=== PATIENT | female | born 2005 | race Two or more races ===

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

== ENCOUNTER 2025-01-21 18:10 | Inpatient (IN) | payer OTHER, SELFPAY ==
--- NOTE | ~2025-01-21 | CT_ITS ---
CLINICAL HISTORY: AMS seizure CT head without contrast Comparison: None provided Findings: No intra-axial mass, midline shift, hydrocephalus, or acute hemorrhage. No significant atrophy-like change or white matter disease. There is no sinus or mastoid fluid. The orbits are unremarkable. No skull fracture. IMPRESSION: 1. No acute intracranial findings. This document has been electronically signed by: Damon Sullivan MD on 01/21/2025 21:01:01
--- NOTE | ~2025-01-21 | MR_ITS ---
CLINICAL HISTORY: ?seizure --- Additional Notes or Special Instructions: Existing IV causing pt pain with use. Pt unable to tolerate placement of new IV for contrast Inj. NO CONTRAST ADMINISTERED. MR Brain without gadolinium Comparison: None provided Findings: No restricted diffusion. No intra-axial mass or hemorrhage. No midline shift. No hydrocephalus. No abnormal brain signal. Mesial temporal lobes are unremarkable. Vascular flow voids are intact. Orbital contents are unremarkable. The sinuses and mastoid air cells are clear. No focal bone lesion. IMPRESSION: Unremarkable brain MRI. This document has been electronically signed by: Boyd Diop MD on 01/22/2025 22:38:32
--- NOTE | ~2025-01-21 | XR_ITS ---
EXAMINATION: XR SKULL CLINICAL INFORMATION: PRE MRI ORBIT/SKULL XR R/O FOREIGN BODY ND UNABLE TO ANSWER SCREENING QUEST COMPARISON: None available. TECHNIQUE: 2 views of the skull were obtained. FINDINGS: There is a metallic circular nose ring. XR/XR skull <4V IMPRESSION: Metallic nose ring. Removal is advised prior to MRI. Electronically signed by: Hieu Guzman MD 01/22/2025 01:44 PM EDT
--- NOTE | ~2025-01-21 | XR_ITS ---
EXAMINATION: XR CHEST CLINICAL INFORMATION: PRE MRI CHEST XR R/O FOREIGN BODY IA UNABLE TO ANSWER SCREENING QUESTIONS COMPARISON: September 26, 2023 TECHNIQUE: Frontal view of the chest was obtained. FINDINGS: No significant abnormality is noted involving the heart, lungs, mediastinum, bony thorax or soft tissues. XR/XR chest 1V IMPRESSION: No acute disease No metallic foreign body. Electronically signed by: Hieu Guzman MD 01/22/2025 01:45 PM EDT
--- NOTE | ~2025-01-21 | XR_ITS ---
EXAMINATION: XR ABDOMEN KUB CLINICAL INDICATION: PRE MRI ABD XR R/O FOREIGN BODY PT UNABLE TO ANSWER SCREENING QUESTIONS COMPARISON: None available. TECHNIQUE: AP view of the abdomen. FINDINGS: The bowel gas pattern is normal with no evidence of ileus or obstruction. No unusual soft tissue calcifications are noted. The bones are unremarkable. Metallic wire, probably temperature probe, projects over the midline in the lower pelvis. XR/XR abdomen 1V IMPRESSION: Metallic wire in the central lower pelvis is probably a temperature probe. MRI safety should be checked. Electronically signed by: Hieu Guzman MD 01/22/2025 01:47 PM EDT
[2025-01-21 18:23] VITALS: BP 125/61; PULSE 103; RESP 23; TEMP 36.4; O2SAT 125
--- NOTE | 2025-01-21 18:28 | ECG_ITS ---
Test Reason : unresponsive Blood Pressure : */* mmHG Vent. Rate : 104 BPM Atrial Rate : 104 BPM P-R Int : 164 ms QRS Dur : 110 ms QT Int : 406 ms P-R-T Axes : 32 59 25 degrees QTcB Int : 533 ms Sinus tachycardia Incomplete right bundle branch block Prolonged QT Abnormal ECG No previous ECGs available Referred By: Julius Chaidez Electronically Signed By:
--- NOTE | 2025-01-21 18:30 | ED_ITS ---
HPI - Altered Mental Status General Chief Complaint: Overdose Stated Complaint: found in road drinking from a puddle Time Seen by Provider: 01/21/25 18:15 Source: EMS Mode of arrival: EMS Limitations: altered mental status History of Present Illness ED Provider: HPI narrative: Patient history of substance abuse?? Was found on the street drinking water from a puddle working on the car disorder no signs of head injury patient does have history of overdose in the past according to the nurse who knows her details not available Related Data Home Medications ?Medication ?Instructions ?Recorded ?Confirmed polyethylene glycol 3350 17 17 g PO DAILY PRN Constipa tion 09/26/23 10/25/23 gram/dose oral powder (Miralax) olanzapine 10 mg tablet 10 mg PO BEDTIME 10/25/23 olanzapine 5 mg tablet 5 mg PO BEDTIME 10/25/2309/14 Allergies Allergy/AdvReac Type Severity Reaction Status Date / Time No Known Allergies Allergy Unverified 01/21/25 19:01 Review of Systems 2 Review of Systems: Yes Unobtainable due to mental status PMFSH Past Medical History Source: unable to obtain Medical History PTSD (post-traumatic stress disorder) Borderline personality disorder Bulimia OCD (obsessive compulsive disorder) Drug overdose Social History Social History Household Members: Other Housing: Other Housing Other:: [employer] ([facility]). Do you presently have visiting nurse or other home services: No Unable to assess alcohol history related to: Refusing to respond Alcohol intake: never Patient Tobacco Use Status: Never used Tobacco e-Cigarette/Vaping Use: Never Used Second Hand Smoke Exposure: No Substance Use Type: Marijuana Advance Directives: No Advance Directives Information Provided: No service: No Sexual orientation: Did not discuss Physical Exam ED Vital Signs: Vital Signs - 24 hr 01/21/25 18:23 01/21/25 18:54 01/21/25 19:56 Temperature 97.5 F 97.5 F 97.2 F Pulse Rate 103 H 104 H 102 H Respiratory Rate 23 H 12 28 H Blood Pressure 125/61 130/90 H 117/65 Pulse Oximetry 125 H 98 100 Oxygen Delivery Method Non-Rebreather Mask Room Air Room Air Oxygen Flow Rate 01/21/25 21:49 01/22/25 00:47 01/22/25 00:50 Temperature 97.3 F 98.8 F Pulse Rate 101 H 106 H Respiratory Rate 20 22 H Blood Pressure 107/62 123/70 Pulse Oximetry 100 99 Oxygen Delivery Method Room Air Nasal Cannula Oxygen Flow Rate 2 01/22/25 02:12 Temperature 98.2 F Pulse Rate 102 H Respiratory Rate 17 Blood Pressure 111/63 Pulse Oximetry 100 Oxygen Delivery Method Room Air Oxygen Flow Rate BMI result Body Mass Index 29.0 Appearance: Obtunded No acute distress. Eyes: PERRLA, No Nystagmus ENT: Pharynx normal. Oral Mucosa moist Neck: Normal inspection. Neck supple. CVS: Normal heart rate and rhythm. Pulses normal. Respiratory: No respiratory distress. Equal air entry bilateral, no wheezing/rales/rhonchi Abdomen: Soft and nontender. Bowel sounds are present, no mass palpable, no CVA tenderness Skin: Skin warm and dry. Normal skin color. Normal skin turgor. Extremities: No lower extremity edema. No calf tenderness Neuro: Obtunded No motor deficit. No sensory deficit.No cerebellar signs , cranial nerves II-XII intact Medications Administered Discontinued Medications Generic Name Dose Route Start Last Admin Trade Name Freq PRN Reason Stop Dose Admin Dextrose 25 gm 01/22/25 02:06 01/22/25 02:10 Dextrose 50 % 25 Gm/50 Ml Syringe IVPUSH 01/22/25 02:07 25 gm ONCE ONE Administration Diazepam 5 mg 01/22/25 00:46 01/22/25 00:53 Diazepam 10 Mg/2 Ml Cartridge IVPUSH 01/22/25 00:47 5 mg STAT STA Administration Sodium Chloride 1,000 mls @ 999 mls/hr 01/21/25 18:25 01/21/25 20:58 Ns IV 01/21/25 19:25 Infused .Q1H1M ONE Infusion Sodium Chloride 1,000 mls @ 999 mls/hr 01/22/25 00:57 01/22/25 02:18 Ns IV 01/22/25 01:57 Infused .Q1H1M ONE Infusion Midazolam HCl 2 mg 01/21/25 18:19 01/21/25 18:28 Midazolam Hcl 2 Mg/2 Ml Vial IM 01/21/25 18:20 2 mg ONCE ONE Administration Medical Decision Making Medical Decision Making [facility] Narrative: 18;15 patient had a tonic-clonic seizure lasted for about 4 minutes Versed 2 mg IM was given 00:45 Patient has another tonic-clonic seizure lasted for 4 minutes was given Valium IV Patient's old chart reviewed patient's trans male with history of PTSD OCD borderline personality disorder bulimia chronic SI with frequent psychiatric admissions phos found on the street with altered mental status and abnormal behavior so far workup is negative for known medication overdose patient's vitals are stable head CT is also negative will keep patient for observation patient's has lactic acidosis likely from the muscle breakdown not from infection Will admit patient for seizure disorder and confusion RN spoke with the patient's mother came to know that patient has overdose on Benadryl in the past and today the but Benadryl bottle was empty and the according to mother patient did get seizure when she had overdose on Benadryl at this time patient was not very agitated when she came was slightly delirious but mostly keeping the eyes closed clinically does not fit in anticholinergic overdose will call poison control Per poison control patient likely overdose on tricyclics does not match the criteria for Benadryl overdose advised to check magnesium repeat EKG for QTC interval and check lactic acid level again Repeat EKG showed normal sinus rhythm heart rate 98 beats per minute QTC [address]-T changes will give 2 g of Mag sulfate Differential Diagnosis Differential Diagnoses: The differential diagnosis associated with the presentation includes Overdose/withdrawal/psychiatric flare-up/tricyclic overdose Admission/Observation Consideration of admission/observation: Escalation of care including admission/observation considered Lab Data [facility] Lab Attestation statement: I reviewed the patient's lab results. 01/21/25 13:25 01/21/25 13:25 Labs: Lab Results 01/21/25 01/21/25 01/21/25 Range/Units 13:25 13:25 13:25 WBC 7.8 (4.8-10.8) X10*3/uL RBC 4.50 (4.20-5.50) X10*6/uL Hgb 13.5 (12.0-16.0) g/dl Hct 39.7 (37.0-47.0) % MCV 88.2 (80.0-98.0) fL MCH 30.0 (27.0-33.0) pg MCHC 34.0 (31.0-35.0) g/dl RDW 12.6 (11.0-16.0) % Plt Count 229 (160-400) X10*3/uL MPV 10.9 (9.4-12.3) fL Immature Gran % (Auto) 0.3 (0.0-0.4) % Neut % (Auto) 67.1 (45-73) % Lymph % (Auto) 26.2 (20-40) % [place] % (Auto) 5.7 (2-11) % Eos % (Auto) 0.1 (0-4) % Baso % (Auto) 0.6 (0-2) % Lymph # (Auto) 2.0 (1.2-4.9) X10*3/uL [place] # (Auto) 0.4 (0.1-1.2) X10*3/uL Eos # (Auto) 0.0 (0.0-0.4) X10*3/uL Baso # (Auto) 0.1 (0.0-0.2) X10*3/uL Abs Immat Gran (auto) 0.02 (0.00-0.03) X10*3/uL Absolute Neuts (auto) 5.2 (2.0-8.3) x10*3/uL Absolute Nucleated RBC 0.000 (0.0-0.012) X10*3/uL Nucleated RBC % (auto) 0.0 (0.0-0.2) /100WBC Hold Purple Top VBG pH (7.32-7.43) VBG pCO2 mmHg VBG pO2 mmHg VBG HCO3 (22-26) mmol/L VBG O2 Saturation % VBG Base Excess mmol/L Sodium Cancelled 139 Potassium Cancelled 4.7 Chloride Cancelled Carbon Dioxide Anion Gap BUN Creatinine Estim Creat Clear Calc Estimated GFR POC Glucose (60-115) mg/dL Random Glucose Lactic Acid (0.5-2.0) mmol/L Lactic Acid F/U @ 2Hr (0.5-2.0) mmol/L Lactic Acid F/U @ 4Hr (0.5-2.0) mmol/L Calcium Total Bilirubin AST ALT Alkaline Phosphatase Total Protein Albumin Beta HCG, Quant mIU/mL Urine Color Urine Appearance Urine pH (5.0-9.0) Ur Specific [place] Level (1.005-1.025) Urine Protein (Neg-Trace) mg/dL Urine Glucose (UA) (Negative) mg/dL Urine Ketones (Negative) mg/dL Urine Blood (Negative) Urine Nitrite (Negative) Ur Leukocyte Esterase (Negative) Urine RBC (0-2) /HPF Urine WBC (0-5) /HPF Ur Squamous Epith Cells (0-2) /HPF Urine Bacteria (None Seen) Hyaline Casts (0-2) /LPF Salicylates (15-30) mg/dL Urine Opiates Screen (Not Detect) Ur Buprenorphine Scrn (Not Detect) ng/mL Ur Oxycodone Screen (Not Detect) ng/mL Urine Methadone Screen (Not Detect) ng/mL Urine Fentanyl Screen (Not Detect) Acetaminophen (<30) mcg/mL Ur Barbiturates Screen (Not Detect) Ur Phencyclidine Scrn (Not Detect) Ur Amphetamines Screen (Not Detect) U Benzodiazepines Scrn (Not Detect) Urine Cocaine Screen (Not Detect) U Marijuana (THC) Screen (Not Detect) Ethyl Alcohol mg/dL 01/21/25 01/21/25 01/21/25 Range/Units 13:25 13:25 13:25 WBC (4.8-10.8) X10*3/uL RBC (4.20-5.50) X10*6/uL Hgb (12.0-16.0) g/dl Hct (37.0-47.0) % MCV (80.0-98.0) fL MCH (27.0-33.0) pg MCHC (31.0-35.0) g/dl RDW (11.0-16.0) % Plt Count (160-400) X10*3/uL MPV (9.4-12.3) fL Immature Gran % (Auto) (0.0-0.4) % Neut % (Auto) (45-73) % Lymph % (Auto) (20-40) % [place] % (Auto) (2-11) % Eos % (Auto) (0-4) % Baso % (Auto) (0-2) % Lymph # (Auto) (1.2-4.9) X10*3/uL [place] # (Auto) (0.1-1.2) X10*3/uL Eos # (Auto) (0.0-0.4) X10*3/uL Baso # (Auto) (0.0-0.2) X10*3/uL Abs Immat Gran (auto) (0.00-0.03) X10*3/uL Absolute Neuts (auto) (2.0-8.3) x10*3/uL Absolute Nucleated RBC (0.0-0.012) X10*3/uL Nucleated RBC % (auto) (0.0-0.2) /100WBC Hold Purple Top VBG pH (7.32-7.43) VBG pCO2 mmHg VBG pO2 mmHg VBG HCO3 (22-26) mmol/L VBG O2 Saturation % VBG Base Excess mmol/L Sodium Potassium Chloride 107 Carbon Dioxide Cancelled 17 L Anion Gap Cancelled 20 BUN Cancelled Creatinine Estim Creat Clear Calc Estimated GFR POC Glucose (60-115) mg/dL Random Glucose Lactic Acid (0.5-2.0) mmol/L Lactic Acid F/U @ 2Hr (0.5-2.0) mmol/L Lactic Acid F/U @ 4Hr (0.5-2.0) mmol/L Calcium Total Bilirubin AST ALT Alkaline Phosphatase Total Protein Albumin Beta HCG, Quant mIU/mL Urine Color Urine Appearance Urine pH (5.0-9.0) Ur Specific [place] Level (1.005-1.025) Urine Protein (Neg-Trace) mg/dL Urine Glucose (UA) (Negative) mg/dL Urine Ketones (Negative) mg/dL Urine Blood (Negative) Urine Nitrite (Negative) Ur Leukocyte Esterase (Negative) Urine RBC (0-2) /HPF Urine WBC (0-5) /HPF Ur Squamous Epith Cells (0-2) /HPF Urine Bacteria (None Seen) Hyaline Casts (0-2) /LPF Salicylates (15-30) mg/dL Urine Opiates Screen (Not Detect) Ur Buprenorphine Scrn (Not Detect) ng/mL Ur Oxycodone Screen (Not Detect) ng/mL Urine Methadone Screen (Not Detect) ng/mL Urine Fentanyl Screen (Not Detect) Acetaminophen (<30) mcg/mL Ur Barbiturates Screen (Not Detect) Ur Phencyclidine Scrn (Not Detect) Ur Amphetamines Screen (Not Detect) U Benzodiazepines Scrn (Not Detect) Urine Cocaine Screen (Not Detect) U Marijuana (THC) Screen (Not Detect) Ethyl Alcohol mg/dL 01/21/25 01/21/25 01/21/25 Range/Units 13:25 13:25 13:25 WBC (4.8-10.8) X10*3/uL RBC (4.20-5.50) X10*6/uL Hgb (12.0-16.0) g/dl Hct (37.0-47.0) % MCV (80.0-98.0) fL MCH (27.0-33.0) pg MCHC (31.0-35.0) g/dl RDW (11.0-16.0) % Plt Count (160-400) X10*3/uL MPV (9.4-12.3) fL Immature Gran % (Auto) (0.0-0.4) % Neut % (Auto) (45-73) % Lymph % (Auto) (20-40) % [place] % (Auto) (2-11) % Eos % (Auto) (0-4) % Baso % (Auto) (0-2) % Lymph # (Auto) (1.2-4.9) X10*3/uL [place] # (Auto) (0.1-1.2) X10*3/uL Eos # (Auto) (0.0-0.4) X10*3/uL Baso # (Auto) (0.0-0.2) X10*3/uL Abs Immat Gran (auto) (0.00-0.03) X10*3/uL Absolute Neuts (auto) (2.0-8.3) x10*3/uL Absolute Nucleated RBC (0.0-0.012) X10*3/uL Nucleated RBC % (auto) (0.0-0.2) /100WBC Hold Purple Top VBG pH (7.32-7.43) VBG pCO2 mmHg VBG pO2 mmHg VBG HCO3 (22-26) mmol/L VBG O2 Saturation % VBG Base Excess mmol/L Sodium Potassium Chloride Carbon Dioxide Anion Gap BUN 14 Creatinine Cancelled 1.14 Estim Creat Clear Calc Cancelled TNP Estimated GFR Cancelled POC Glucose (60-115) mg/dL Random Glucose Lactic Acid (0.5-2.0) mmol/L Lactic Acid F/U @ 2Hr (0.5-2.0) mmol/L Lactic Acid F/U @ 4Hr (0.5-2.0) mmol/L Calcium Total Bilirubin AST ALT Alkaline Phosphatase Total Protein Albumin Beta HCG, Quant mIU/mL Urine Color Urine Appearance Urine pH (5.0-9.0) Ur Specific [place] Level (1.005-1.025) Urine Protein (Neg-Trace) mg/dL Urine Glucose (UA) (Negative) mg/dL Urine Ketones (Negative) mg/dL Urine Blood (Negative) Urine Nitrite (Negative) Ur Leukocyte Esterase (Negative) Urine RBC (0-2) /HPF Urine WBC (0-5) /HPF Ur Squamous Epith Cells (0-2) /HPF Urine Bacteria (None Seen) Hyaline Casts (0-2) /LPF Salicylates (15-30) mg/dL Urine Opiates Screen (Not Detect) Ur Buprenorphine Scrn (Not Detect) ng/mL Ur Oxycodone Screen (Not Detect) ng/mL Urine Methadone Screen (Not Detect) ng/mL Urine Fentanyl Screen (Not Detect) Acetaminophen (<30) mcg/mL Ur Barbiturates Screen (Not Detect) Ur Phencyclidine Scrn (Not Detect) Ur Amphetamines Screen (Not Detect) U Benzodiazepines Scrn (Not Detect) Urine Cocaine Screen (Not Detect) U Marijuana (THC) Screen (Not Detect) Ethyl Alcohol mg/dL 01/21/25 01/21/25 01/21/25 Range/Units 13:25 13:25 13:25 WBC (4.8-10.8) X10*3/uL RBC (4.20-5.50) X10*6/uL Hgb (12.0-16.0) g/dl Hct (37.0-47.0) % MCV (80.0-98.0) fL MCH (27.0-33.0) pg MCHC (31.0-35.0) g/dl RDW (11.0-16.0) % Plt Count (160-400) X10*3/uL MPV (9.4-12.3) fL Immature Gran % (Auto) (0.0-0.4) % Neut % (Auto) (45-73) % Lymph % (Auto) (20-40) % [place] % (Auto) (2-11) % Eos % (Auto) (0-4) % Baso % (Auto) (0-2) % Lymph # (Auto) (1.2-4.9) X10*3/uL [place] # (Auto) (0.1-1.2) X10*3/uL Eos # (Auto) (0.0-0.4) X10*3/uL Baso # (Auto) (0.0-0.2) X10*3/uL Abs Immat Gran (auto) (0.00-0.03) X10*3/uL Absolute Neuts (auto) (2.0-8.3) x10*3/uL Absolute Nucleated RBC (0.0-0.012) X10*3/uL Nucleated RBC % (auto) (0.0-0.2) /100WBC Hold Purple Top VBG pH (7.32-7.43) VBG pCO2 mmHg VBG pO2 mmHg VBG HCO3 (22-26) mmol/L VBG O2 Saturation % VBG Base Excess mmol/L Sodium Potassium Chloride Carbon Dioxide Anion Gap BUN Creatinine Estim Creat Clear Calc Estimated GFR 58 POC Glucose (60-115) mg/dL Random Glucose Cancelled 70 Lactic Acid (0.5-2.0) mmol/L Lactic Acid F/U @ 2Hr (0.5-2.0) mmol/L Lactic Acid F/U @ 4Hr (0.5-2.0) mmol/L Calcium Cancelled 8.7 Total Bilirubin Cancelled AST ALT Alkaline Phosphatase Total Protein Albumin Beta HCG, Quant mIU/mL Urine Color Urine Appearance Urine pH (5.0-9.0) Ur Specific [place] Level (1.005-1.025) Urine Protein (Neg-Trace) mg/dL Urine Glucose (UA) (Negative) mg/dL Urine Ketones (Negative) mg/dL Urine Blood (Negative) Urine Nitrite (Negative) Ur Leukocyte Esterase (Negative) Urine RBC (0-2) /HPF Urine WBC (0-5) /HPF Ur Squamous Epith Cells (0-2) /HPF Urine Bacteria (None Seen) Hyaline Casts (0-2) /LPF Salicylates (15-30) mg/dL Urine Opiates Screen (Not Detect) Ur Buprenorphine Scrn (Not Detect) ng/mL Ur Oxycodone Screen (Not Detect) ng/mL Urine Methadone Screen (Not Detect) ng/mL Urine Fentanyl Screen (Not Detect) Acetaminophen (<30) mcg/mL Ur Barbiturates Screen (Not Detect) Ur Phencyclidine Scrn (Not Detect) Ur Amphetamines Screen (Not Detect) U Benzodiazepines Scrn (Not Detect) Urine Cocaine Screen (Not Detect) U Marijuana (THC) Screen (Not Detect) Ethyl Alcohol mg/dL 01/21/25 01/21/25 01/21/25 Range/Units 13:25 13:25 13:25 WBC (4.8-10.8) X10*3/uL RBC (4.20-5.50) X10*6/uL Hgb (12.0-16.0) g/dl Hct (37.0-47.0) % MCV (80.0-98.0) fL MCH (27.0-33.0) pg MCHC (31.0-35.0) g/dl RDW (11.0-16.0) % Plt Count (160-400) X10*3/uL MPV (9.4-12.3) fL Immature Gran % (Auto) (0.0-0.4) % Neut % (Auto) (45-73) % Lymph % (Auto) (20-40) % [place] % (Auto) (2-11) % Eos % (Auto) (0-4) % Baso % (Auto) (0-2) % Lymph # (Auto) (1.2-4.9) X10*3/uL [place] # (Auto) (0.1-1.2) X10*3/uL Eos # (Auto) (0.0-0.4) X10*3/uL Baso # (Auto) (0.0-0.2) X10*3/uL Abs Immat Gran (auto) (0.00-0.03) X10*3/uL Absolute Neuts (auto) (2.0-8.3) x10*3/uL Absolute Nucleated RBC (0.0-0.012) X10*3/uL Nucleated RBC % (auto) (0.0-0.2) /100WBC Hold Purple Top VBG pH (7.32-7.43) VBG pCO2 mmHg VBG pO2 mmHg VBG HCO3 (22-26) mmol/L VBG O2 Saturation % VBG Base Excess mmol/L Sodium Potassium Chloride Carbon Dioxide Anion Gap BUN Creatinine Estim Creat Clear Calc Estimated GFR POC Glucose (60-115) mg/dL Random Glucose Lactic Acid (0.5-2.0) mmol/L Lactic Acid F/U @ 2Hr (0.5-2.0) mmol/L Lactic Acid F/U @ 4Hr (0.5-2.0) mmol/L Calcium Total Bilirubin 0.4 AST Cancelled 49 H ALT Cancelled 29 Alkaline Phosphatase Cancelled Total Protein Albumin Beta HCG, Quant mIU/mL Urine Color Urine Appearance Urine pH (5.0-9.0) Ur Specific [place] Level (1.005-1.025) Urine Protein (Neg-Trace) mg/dL Urine Glucose (UA) (Negative) mg/dL Urine Ketones (Negative) mg/dL Urine Blood (Negative) Urine Nitrite (Negative) Ur Leukocyte Esterase (Negative) Urine RBC (0-2) /HPF Urine WBC (0-5) /HPF Ur Squamous Epith Cells (0-2) /HPF Urine Bacteria (None Seen) Hyaline Casts (0-2) /LPF Salicylates (15-30) mg/dL Urine Opiates Screen (Not Detect) Ur Buprenorphine Scrn (Not Detect) ng/mL Ur Oxycodone Screen (Not Detect) ng/mL Urine Methadone Screen (Not Detect) ng/mL Urine Fentanyl Screen (Not Detect) Acetaminophen (<30) mcg/mL Ur Barbiturates Screen (Not Detect) Ur Phencyclidine Scrn (Not Detect) Ur Amphetamines Screen (Not Detect) U Benzodiazepines Scrn (Not Detect) Urine Cocaine Screen (Not Detect) U Marijuana (THC) Screen (Not Detect) Ethyl Alcohol mg/dL 01/21/25 01/21/25 01/21/25 Range/Units 13:25 13:25 13:25 WBC (4.8-10.8) X10*3/uL RBC (4.20-5.50) X10*6/uL Hgb (12.0-16.0) g/dl Hct (37.0-47.0) % MCV (80.0-98.0) fL MCH (27.0-33.0) pg MCHC (31.0-35.0) g/dl RDW (11.0-16.0) % Plt Count (160-400) X10*3/uL MPV (9.4-12.3) fL Immature Gran % (Auto) (0.0-0.4) % Neut % (Auto) (45-73) % Lymph % (Auto) (20-40) % [place] % (Auto) (2-11) % Eos % (Auto) (0-4) % Baso % (Auto) (0-2) % Lymph # (Auto) (1.2-4.9) X10*3/uL [place] # (Auto) (0.1-1.2) X10*3/uL Eos # (Auto) (0.0-0.4) X10*3/uL Baso # (Auto) (0.0-0.2) X10*3/uL Abs Immat Gran (auto) (0.00-0.03) X10*3/uL Absolute Neuts (auto) (2.0-8.3) x10*3/uL Absolute Nucleated RBC (0.0-0.012) X10*3/uL Nucleated RBC % (auto) (0.0-0.2) /100WBC Hold Purple Top VBG pH (7.32-7.43) VBG pCO2 mmHg VBG pO2 mmHg VBG HCO3 (22-26) mmol/L VBG O2 Saturation % VBG Base Excess mmol/L Sodium Potassium Chloride Carbon Dioxide Anion Gap BUN Creatinine Estim Creat Clear Calc Estimated GFR POC Glucose (60-115) mg/dL Random Glucose Lactic Acid (0.5-2.0) mmol/L Lactic Acid F/U @ 2Hr (0.5-2.0) mmol/L Lactic Acid F/U @ 4Hr (0.5-2.0) mmol/L Calcium Total Bilirubin AST ALT Alkaline Phosphatase 69 Total Protein Cancelled 7.9 Albumin Cancelled 4.6 Beta HCG, Quant < 2 mIU/mL Urine Color Urine Appearance Urine pH (5.0-9.0) Ur Specific [place] Level (1.005-1.025) Urine Protein (Neg-Trace) mg/dL Urine Glucose (UA) (Negative) mg/dL Urine Ketones (Negative) mg/dL Urine Blood (Negative) Urine Nitrite (Negative) Ur Leukocyte Esterase (Negative) Urine RBC (0-2) /HPF Urine WBC (0-5) /HPF Ur Squamous Epith Cells (0-2) /HPF Urine Bacteria (None Seen) Hyaline Casts (0-2) /LPF Salicylates < 5.0 L (15-30) mg/dL Urine Opiates Screen (Not Detect) Ur Buprenorphine Scrn (Not Detect) ng/mL Ur Oxycodone Screen (Not Detect) ng/mL Urine Methadone Screen (Not Detect) ng/mL Urine Fentanyl Screen (Not Detect) Acetaminophen < 3 (<30) mcg/mL Ur Barbiturates Screen (Not Detect) Ur Phencyclidine Scrn (Not Detect) Ur Amphetamines Screen (Not Detect) U Benzodiazepines Scrn (Not Detect) Urine Cocaine Screen (Not Detect) U Marijuana (THC) Screen (Not Detect) Ethyl Alcohol < 10 mg/dL 01/21/25 01/21/25 01/21/25 Range/Units 16:25 18:25 18:37 WBC (4.8-10.8) X10*3/uL RBC (4.20-5.50) X10*6/uL Hgb (12.0-16.0) g/dl Hct (37.0-47.0) % MCV (80.0-98.0) fL MCH (27.0-33.0) pg MCHC (31.0-35.0) g/dl RDW (11.0-16.0) % Plt Count (160-400) X10*3/uL MPV (9.4-12.3) fL Immature Gran % (Auto) (0.0-0.4) % Neut % (Auto) (45-73) % Lymph % (Auto) (20-40) % [place] % (Auto) (2-11) % Eos % (Auto) (0-4) % Baso % (Auto) (0-2) % Lymph # (Auto) (1.2-4.9) X10*3/uL [place] # (Auto) (0.1-1.2) X10*3/uL Eos # (Auto) (0.0-0.4) X10*3/uL Baso # (Auto) (0.0-0.2) X10*3/uL Abs Immat Gran (auto) (0.00-0.03) X10*3/uL Absolute Neuts (auto) (2.0-8.3) x10*3/uL Absolute Nucleated RBC (0.0-0.012) X10*3/uL Nucleated RBC % (auto) (0.0-0.2) /100WBC Hold Purple Top SEE NOTE VBG pH 7.29 L (7.32-7.43) VBG pCO2 35 mmHg VBG pO2 73 mmHg VBG HCO3 17 L (22-26) mmol/L VBG O2 Saturation 91.0 % VBG Base Excess -8.2 mmol/L Sodium Potassium Chloride Carbon Dioxide Anion Gap BUN Creatinine Estim Creat Clear Calc Estimated GFR POC Glucose (60-115) mg/dL Random Glucose Lactic Acid 5.2 H* (0.5-2.0) mmol/L Lactic Acid F/U @ 2Hr (0.5-2.0) mmol/L Lactic Acid F/U @ 4Hr (0.5-2.0) mmol/L Calcium Total Bilirubin AST ALT Alkaline Phosphatase Total Protein Albumin Beta HCG, Quant mIU/mL Urine Color Urine Appearance Urine pH (5.0-9.0) Ur Specific [place] Level (1.005-1.025) Urine Protein (Neg-Trace) mg/dL Urine Glucose (UA) (Negative) mg/dL Urine Ketones (Negative) mg/dL Urine Blood (Negative) Urine Nitrite (Negative) Ur Leukocyte Esterase (Negative) Urine RBC (0-2) /HPF Urine WBC (0-5) /HPF Ur Squamous Epith Cells (0-2) /HPF Urine Bacteria (None Seen) Hyaline Casts (0-2) /LPF Salicylates (15-30) mg/dL Urine Opiates Screen (Not Detect) Ur Buprenorphine Scrn (Not Detect) ng/mL Ur Oxycodone Screen (Not Detect) ng/mL Urine Methadone Screen (Not Detect) ng/mL Urine Fentanyl Screen (Not Detect) Acetaminophen (<30) mcg/mL Ur Barbiturates Screen (Not Detect) Ur Phencyclidine Scrn (Not Detect) Ur Amphetamines Screen (Not Detect) U Benzodiazepines Scrn (Not Detect) Urine Cocaine Screen (Not Detect) U Marijuana (THC) Screen (Not Detect) Ethyl Alcohol mg/dL 01/21/25 01/21/25 01/22/25 Range/Units 18:50 21:25 00:44 WBC (4.8-10.8) X10*3/uL RBC (4.20-5.50) X10*6/uL Hgb (12.0-16.0) g/dl Hct (37.0-47.0) % MCV (80.0-98.0) fL MCH (27.0-33.0) pg MCHC (31.0-35.0) g/dl RDW (11.0-16.0) % Plt Count (160-400) X10*3/uL MPV (9.4-12.3) fL Immature Gran % (Auto) (0.0-0.4) % Neut % (Auto) (45-73) % Lymph % (Auto) (20-40) % [place] % (Auto) (2-11) % Eos % (Auto) (0-4) % Baso % (Auto) (0-2) % Lymph # (Auto) (1.2-4.9) X10*3/uL [place] # (Auto) (0.1-1.2) X10*3/uL Eos # (Auto) (0.0-0.4) X10*3/uL Baso # (Auto) (0.0-0.2) X10*3/uL Abs Immat Gran (auto) (0.00-0.03) X10*3/uL Absolute Neuts (auto) (2.0-8.3) x10*3/uL Absolute Nucleated RBC (0.0-0.012) X10*3/uL Nucleated RBC % (auto) (0.0-0.2) /100WBC Hold Purple Top VBG pH (7.32-7.43) VBG pCO2 mmHg VBG pO2 mmHg VBG HCO3 (22-26) mmol/L VBG O2 Saturation % VBG Base Excess mmol/L Sodium Potassium Chloride Carbon Dioxide Anion Gap BUN Creatinine Estim Creat Clear Calc Estimated GFR POC Glucose (60-115) mg/dL Random Glucose Lactic Acid (0.5-2.0) mmol/L Lactic Acid F/U @ 2Hr 2.7 H* (0.5-2.0) mmol/L Lactic Acid F/U @ 4Hr 5.5 H* (0.5-2.0) mmol/L Calcium Total Bilirubin AST ALT Alkaline Phosphatase Total Protein Albumin Beta HCG, Quant mIU/mL Urine Color Yellow Urine Appearance Clear Urine pH 6.0 (5.0-9.0) Ur Specific [place] <= 1.005 (1.005-1.025) Urine Protein Negative (Neg-Trace) mg/dL Urine Glucose (UA) Negative (Negative) mg/dL Urine Ketones Negative (Negative) mg/dL Urine Blood Large (3+) H (Negative) Urine Nitrite Negative (Negative) Ur Leukocyte Esterase Negative (Negative) Urine RBC >20 H (0-2) /HPF Urine WBC 0-5 (0-5) /HPF Ur Squamous Epith Cells 0-2 (0-2) /HPF Urine Bacteria None Seen (None Seen) Hyaline Casts 0-2 (0-2) /LPF Salicylates (15-30) mg/dL Urine Opiates Screen Not Detected (Not Detect) Ur Buprenorphine Scrn Not Detected (Not Detect) ng/mL Ur Oxycodone Screen Not Detected (Not Detect) ng/mL Urine Methadone Screen Not Detected (Not Detect) ng/mL Urine Fentanyl Screen Not Detected (Not Detect) Acetaminophen (<30) mcg/mL Ur Barbiturates Screen Not Detected (Not Detect) Ur Phencyclidine Scrn Not Detected (Not Detect) Ur Amphetamines Screen Not Detected (Not Detect) U Benzodiazepines Scrn Not Detected (Not Detect) Urine Cocaine Screen Not Detected (Not Detect) U Marijuana (THC) Screen Not Detected (Not Detect) Ethyl Alcohol mg/dL 01/22/25 Range/Units 02:04 WBC (4.8-10.8) X10*3/uL RBC (4.20-5.50) X10*6/uL Hgb (12.0-16.0) g/dl Hct (37.0-47.0) % MCV (80.0-98.0) fL MCH (27.0-33.0) pg MCHC (31.0-35.0) g/dl RDW (11.0-16.0) % Plt Count (160-400) X10*3/uL MPV (9.4-12.3) fL Immature Gran % (Auto) (0.0-0.4) % Neut % (Auto) (45-73) % Lymph % (Auto) (20-40) % [place] % (Auto) (2-11) % Eos % (Auto) (0-4) % Baso % (Auto) (0-2) % Lymph # (Auto) (1.2-4.9) X10*3/uL [place] # (Auto) (0.1-1.2) X10*3/uL Eos # (Auto) (0.0-0.4) X10*3/uL Baso # (Auto) (0.0-0.2) X10*3/uL Abs Immat Gran (auto) (0.00-0.03) X10*3/uL Absolute Neuts (auto) (2.0-8.3) x10*3/uL Absolute Nucleated RBC (0.0-0.012) X10*3/uL Nucleated RBC % (auto) (0.0-0.2) /100WBC Hold Purple Top VBG pH (7.32-7.43) VBG pCO2 mmHg VBG pO2 mmHg VBG HCO3 (22-26) mmol/L VBG O2 Saturation % VBG Base Excess mmol/L Sodium Potassium Chloride Carbon Dioxide Anion Gap BUN Creatinine Estim Creat Clear Calc Estimated GFR POC Glucose 48 L* (60-115) mg/dL Random Glucose Lactic Acid (0.5-2.0) mmol/L Lactic Acid F/U @ 2Hr (0.5-2.0) mmol/L Lactic Acid F/U @ 4Hr (0.5-2.0) mmol/L Calcium Total Bilirubin AST ALT Alkaline Phosphatase Total Protein Albumin Beta HCG, Quant mIU/mL Urine Color Urine Appearance Urine pH (5.0-9.0) Ur Specific [place] (1.005-1.025) Urine Protein (Neg-Trace) mg/dL Urine Glucose (UA) (Negative) mg/dL Urine Ketones (Negative) mg/dL Urine Blood (Negative) Urine Nitrite (Negative) Ur Leukocyte Esterase (Negative) Urine RBC (0-2) /HPF Urine WBC (0-5) /HPF Ur Squamous Epith Cells (0-2) /HPF Urine Bacteria (None Seen) Hyaline Casts (0-2) /LPF Salicylates (15-30) mg/dL Urine Opiates Screen (Not Detect) Ur Buprenorphine Scrn (Not Detect) ng/mL Ur Oxycodone Screen (Not Detect) ng/mL Urine Methadone Screen (Not Detect) ng/mL Urine Fentanyl Screen (Not Detect) Acetaminophen (<30) mcg/mL Ur Barbiturates Screen (Not Detect) Ur Phencyclidine Scrn (Not Detect) Ur Amphetamines Screen (Not Detect) U Benzodiazepines Scrn (Not Detect) Urine Cocaine Screen (Not Detect) U Marijuana (THC) Screen (Not Detect) Ethyl Alcohol mg/dL ABG Data Attestation ABG: I personally reviewed and interpreted this ABG as follows: Independent Interpretation I performed an independent interpretation of an: EKG Interpretation: Sinus tachycardia with a heart rate of 104 beats per minute incomplete right bundle block prolonged QT interval [address]-T no acute ischemia Radiology Impression Discussion of test interpretation with radiology: I have reviewed the radiologist's reading. Critical Care Time Critical Care Time Critical Care Time: Yes Total Critical Care Time: 75 Attestation: Time is exclusive of separately billable procedures. Time includes: direct patient care, patient reassessment, coordination of patient care, interpretation of data (laboratory data, pulse oximetry, arterial blood gases and chest xrays), review of patient's medical records, medical consultation and documentation of patient care. Procedures excluded from critical care time: central intravenous line placement and electrocardiography. Discharge Plan Discharge Clinical Impression: Drug overdose, New onset seizure Patient Disposition: Admitted As Inpatient Print Language: Syriac
[2025-01-21 18:36] LABS: MANUAL DIFF FLAG NO
[2025-01-21 18:39] LABS: Hematocrit 39.7 % (37.0-47.0); Hemoglobin 13.5 g/dl (12.0-16.0); Imm Gran Abs Auto 0.02 X10*3/uL (0.00-0.03); Imm Gran Pct Auto 0.3 % (0.0-0.4); Lymphocytes Absolute Auto 2.0 X10*3/uL (1.2-4.9); Mean Corpuscular HGB Conc 34.0 g/dl (31.0-35.0); Mean Corpuscular Hemoglobin 30.0 pg (27.0-33.0); Mean Corpuscular Volume 88.2 fL (80.0-98.0); NRBC Abs Auto 0.000 X10*3/uL (0.0-0.012); NRBC Pct Auto 0.0 /100WBC (0.0-0.2); Platelet Count 229 X10*3/uL (160-400); Red Blood Count 4.50 X10*6/uL (4.20-5.50); White Blood Count 7.8 X10*3/uL (4.8-10.8)
[2025-01-21 18:43] LABS: VBG HCO3 17 mmol/L (22-26); VBG O2 % Saturation 91.0 %
[2025-01-21 18:44] LABS: Venous Blood Gas Refer to POC result
[2025-01-21 18:54] VITALS: BP 130/90; BP 150/98; PULSE 104; PULSE 132; RESP 12; TEMP 36.4; O2SAT 100; O2SAT 98; BMI 29.0
[2025-01-21 18:59] LABS: Acetaminophen LAB < 3 mcg/mL (<30); Alanine Aminotransferase 29 U/L (0-31); Albumin Level 4.6 g/dL (3.5-5.0); Alkaline Phosphatase 69 U/L (39-117); Anion Gap 20 (12-20); Aspartate Amino Transferase 49 U/L (5-31); Blood Urea Nitrogen 14 mg/dL (9-16); Calcium 8.7 mg/dL (8.4-10.2); Carbon Dioxide 17 mmol/L (22-29); Chloride 107 mmol/L (96-108); Estimated Glomerular Filt Rate 58; Potassium 4.7 mmol/L (3.3-5.1); Salicylate < 5.0 mg/dL (15-30); Sodium 139 mmol/L (135-145); Total Protein 7.9 g/dL (6.5-8.0)
[2025-01-21 19:05] LABS: Appearance Urine Clear; Glucose Urine UA Negative (Negative); PH 6.0 (5.0-9.0); Specific Gravity - Urine <= 1.005 (1.005-1.025); UMIC TRIGGER UACC YES
[2025-01-21 19:17] LABS: Cannabinoid Screen Urine Not Detected (Not Detect)
[2025-01-21 19:56] VITALS: BP 117/65; PULSE 102; RESP 28; TEMP 36.2; O2SAT 100
[2025-01-21 20:40] LABS: Reflex Lactate? Lactic Acid Added
[2025-01-21 21:49] VITALS: BP 107/62; PULSE 101; RESP 20; TEMP 36.3; O2SAT 100
[2025-01-21 21:56] LABS: ~Lactic Acid-LAB USE ONLY 2.7 mmol/L (0.5-2.0)
[2025-01-21 23:29] LABS: Reflex Lactate? 2 Y
[2025-01-22] VITALS (11 sets, daily range): BP systolic 110–141; BP diastolic 63–91; PULSE 94–116; RESP 17–22; TEMP 36.4–37.1; O2SAT 96–100; BMI 31.0
[2025-01-22] MEDS: diazePAM 10 MG/2 ML CARTRIDGE 5 MG IVPUSH (00:53)
--- NOTE | 2025-01-22 00:54 | PC.NURSE ---
Second seizure, unknown duration, unattended at time of start. MD Rawls at bedside, medicated as per V.O. Pt continues to be rousable only to painful stimulus. PERRLA, VSS. Sinus tach low 100s on monitor.
[2025-01-22 01:08] LABS: ~Lactic Acid-LAB USE ONLY 5.5 mmol/L (0.5-2.0)
[2025-01-22 02:08] LABS: Glucose, Whole Blood 48 mg/dL (60-115)
--- NOTE | 2025-01-22 02:28 | ECG_ITS ---
Test Reason : OD Blood Pressure : */* mmHG Vent. Rate : 98 BPM Atrial Rate : 98 BPM P-R Int : 174 ms QRS Dur : 108 ms QT Int : 426 ms P-R-T Axes : 27 65 53 degrees QTcB Int : 543 ms Normal sinus rhythm Prolonged QT Abnormal ECG When compared with ECG of 26-Dec-2024 07:09, Non-specific change in ST segment in Anterior leads Referred By: Julius Chaidez Electronically Signed By: COLT MOSELEY MD
[2025-01-22 02:40] LABS: Magnesium 2.0 mg/dL (1.6-2.6)
[2025-01-22 02:48] LABS: Glucose, Whole Blood 121 mg/dL (60-115)
--- NOTE | 2025-01-22 02:57 | PM.IMHP ---
History of Present Illness Date of Service: 01/22/25 Attending physician on admission: Deangelo Cervantes Chief Complaint: found minimally responsive Patient is a 19-year-old trans female to male patient with a past medical history significant for PTSD, OCD, borderline personality disorder, chronic SI attempts with frequent psych admissions, previous intentional Benadryl overdose and bulimia, who presented to the ED after being found trying to drink from a puddle, licking a car. The patient was minimally responsive. History is unable to be obtained by the patient. ED provider was able to speak with the patient's mother who reported that they have a history of a Benadryl overdose and the mother found the Benadryl bottle empty again today. With previous Benadryl overdose he had a seizure. The ED provider spoke to poison control who suggested this did not seem to be consistent with anticholinergic overdose, more likely TCA overdose due to delirium. Recommendations for checking QTC with serial EKGs as well as magnesium and lactic acid. Review of Systems Review of Systems: Yes Unobtainable due to mental status PMFSH Medical History PTSD (post-traumatic stress disorder) Borderline personality disorder Bulimia OCD (obsessive compulsive disorder) Drug overdose Functional capacity: independent ambulation Social History Household Members: Other Housing: Other Housing Other:: [facility] ([facility]). Do you presently have visiting nurse or other home services: No Unable to assess alcohol history related to: Refusing to respond Alcohol intake: never Patient Tobacco Use Status: Never used Tobacco e-Cigarette/Vaping Use: Never Used Second Hand Smoke Exposure: No Substance Use Type: Marijuana Advance Directives: No Advance Directives Information Provided: No service: No Sexual orientation: Did not discuss Meds Allergies Allergy/AdvReac Type Severity Reaction Status Date / Time No Known Allergies Allergy Unverified 01/21/25 19:01 Active Medications: Current Medications Acetaminophen (Acetaminophen 325 Mg Tablet) 975 mg PO Q6H PRN PRN Reason: Pain, Mild 1-3,fever,headache Calcium Carbonate (Calcium Carbonate 750 Mg Tab.Chew) 750 mg PO Q4H PRN PRN Reason: Heartburn Diazepam (Diazepam 10 Mg/2 Ml Cartridge) 5 mg IVPUSH Q2H PRN PRN Reason: Seizures Heparin Sodium (Porcine) (Heparin Sodium,Porcine 5,000 Unit/Ml Vial) 5,000 unit SUBCUT Q8H [facility] Magnesium Sulfate (Magnesium Sulfate/H2o) 2 gm in 50 mls @ 25 mls/hr IV ONCE ONE Stop: 01/22/25 04:32 Dextrose/Lactated Ringer's (D5lr) 1,000 mls @ 100 mls/hr IVCONT .Q10H [facility] Magnesium Hydroxide (Milk Of Magnesia 30 Ml Oral.Susp) 30 ml PO DAILY PRN PRN Reason: Constipation Melatonin (Melatonin 3 Mg Tablet) 6 mg PO BEDTIME PRN PRN Reason: Insomnia Sodium Chloride (0.9 % Sodium Chloride Flush 3 Ml Syringe) 3 ml IVFLUSH QSHIFT [facility] Home Medications ?Medication ?Instructions ?Recorded ?Confirmed ?Last Taken ?Type polyethylene glycol 3350 17 17 g PO DAILY PRN Constipation 09/26/23 10/25/23 Unknown History gram/dose oral powder (Miralax) olanzapine 10 mg tablet 10 mg PO BEDTIME 10/25/23 10/25/23 Unknown History olanzapine 5 mg tablet 5 mg PO BEDTIME 10/25/23 10/25/23 Unknown History Physical Exam Vital Signs and Narrative: Vital Signs: Last Vital Signs Temp 98.2 F 01/22/25 02:12 Pulse 102 H 01/22/25 02:12 Resp 17 01/22/25 02:12 BP 111/63 01/22/25 02:12 Pulse Ox 100 01/22/25 02:12 O2 Del Method Room Air 01/22/25 02:12 O2 Flow Rate 2 01/22/25 00:47 BMI result Body Mass Index 29.0 General: alert to verbal stimuli moving head side to side and will open eyes minimally, not oriented, does not respond or follow commands, no acute distress Resp: CTA bilaterally CVS: S1, S2, RRR GI: +BS, NT, no distention Skin: Warm, dry Neuro: Cranial nerves II-XII grossly intact bilaterally. Motor grossly intact bilaterally Extremities: No LE edema Results Labs 01/21/25 13:25 01/21/25 13:25 Labs: Laboratory Results - last 24 hr 01/21/25 01/21/25 01/21/25 13:25 13:25 13:25 MCV 88.2 MCH 30.0 MCHC 34.0 RDW 12.6 Plt Count 229 MPV 10.9 Immature Gran % (Auto) 0.3 Neut % (Auto) 67.1 Lymph % (Auto) 26.2 [place] % (Auto) 5.7 Eos % (Auto) 0.1 Baso % (Auto) 0.6 Lymph # (Auto) 2.0 [place] # (Auto) 0.4 Eos # (Auto) 0.0 Baso # (Auto) 0.1 Abs Immat Gran (auto) 0.02 Absolute Neuts (auto) 5.2 Absolute Nucleated RBC 0.000 Nucleated RBC % (auto) 0.0 Hold Purple Top VBG pH VBG pCO2 VBG pO2 VBG HCO3 VBG O2 Saturation VBG Base Excess Anion Gap Cancelled 20 Estim Creat Clear Calc Cancelled TNP Estimated GFR Cancelled POC Glucose Random Glucose Lactic Acid Lactic Acid F/U @ 2Hr Lactic Acid F/U @ 4Hr Calcium Magnesium Total Bilirubin AST ALT Alkaline Phosphatase Total Protein Albumin Beta HCG, Quant Urine Color Urine Appearance Urine pH Ur Specific [place] Urine Protein Urine Glucose (UA) Urine Ketones Urine Blood Urine Nitrite Ur Leukocyte Esterase Urine RBC Urine WBC Ur Squamous Epith Cells Urine Bacteria Hyaline Casts Salicylates Urine Opiates Screen Ur Buprenorphine Scrn Ur Oxycodone Screen Urine Methadone Screen Urine Fentanyl Screen Acetaminophen Ur Barbiturates Screen Ur Phencyclidine Scrn Ur Amphetamines Screen U Benzodiazepines Scrn Urine Cocaine Screen U Marijuana (THC) Screen Ethyl Alcohol 01/21/25 01/21/25 01/21/25 13:25 13:25 13:25 MCV MCH MCHC RDW Plt Count MPV Immature Gran % (Auto) Neut % (Auto) Lymph % (Auto) [place] % (Auto) Eos % (Auto) Baso % (Auto) Lymph # (Auto) [place] # (Auto) Eos # (Auto) Baso # (Auto) Abs Immat Gran (auto) Absolute Neuts (auto) Absolute Nucleated RBC Nucleated RBC % (auto) Hold Purple Top VBG pH VBG pCO2 VBG pO2 VBG HCO3 VBG O2 Saturation VBG Base Excess Anion Gap Estim Creat Clear Calc Estimated GFR 58 POC Glucose Random Glucose Cancelled 70 Lactic Acid Lactic Acid F/U @ 2Hr Lactic Acid F/U @ 4Hr Calcium Cancelled 8.7 Magnesium 2.0 Total Bilirubin Cancelled AST ALT Alkaline Phosphatase Total Protein Albumin Beta HCG, Quant Urine Color Urine Appearance Urine pH Ur Specific [place] Urine Protein Urine Glucose (UA) Urine Ketones Urine Blood Urine Nitrite Ur Leukocyte Esterase Urine RBC Urine WBC Ur Squamous Epith Cells Urine Bacteria Hyaline Casts Salicylates Urine Opiates Screen Ur Buprenorphine Scrn Ur Oxycodone Screen Urine Methadone Screen Urine Fentanyl Screen Acetaminophen Ur Barbiturates Screen Ur Phencyclidine Scrn Ur Amphetamines Screen U Benzodiazepines Scrn Urine Cocaine Screen U Marijuana (THC) Screen Ethyl Alcohol 01/21/25 01/21/25 01/21/25 13:25 13:25 13:25 MCV MCH MCHC RDW Plt Count MPV Immature Gran % (Auto) Neut % (Auto) Lymph % (Auto) [place] % (Auto) Eos % (Auto) Baso % (Auto) Lymph # (Auto) [place] # (Auto) Eos # (Auto) Baso # (Auto) Abs Immat Gran (auto) Absolute Neuts (auto) Absolute Nucleated RBC Nucleated RBC % (auto) Hold Purple Top VBG pH VBG pCO2 VBG pO2 VBG HCO3 VBG O2 Saturation VBG Base Excess Anion Gap Estim Creat Clear Calc Estimated GFR POC Glucose Random Glucose Lactic Acid Lactic Acid F/U @ 2Hr Lactic Acid F/U @ 4Hr Calcium Magnesium Total Bilirubin 0.4 AST Cancelled 49 H ALT Cancelled 29 Alkaline Phosphatase Cancelled Total Protein Albumin Beta HCG, Quant Urine Color Urine Appearance Urine pH Ur Specific [place] Urine Protein Urine Glucose (UA) Urine Ketones Urine Blood Urine Nitrite Ur Leukocyte Esterase Urine RBC Urine WBC Ur Squamous Epith Cells Urine Bacteria Hyaline Casts Salicylates Urine Opiates Screen Ur Buprenorphine Scrn Ur Oxycodone Screen Urine Methadone Screen Urine Fentanyl Screen Acetaminophen Ur Barbiturates Screen Ur Phencyclidine Scrn Ur Amphetamines Screen U Benzodiazepines Scrn Urine Cocaine Screen U Marijuana (THC) Screen Ethyl Alcohol 01/21/25 01/21/25 01/21/25 13:25 13:25 13:25 MCV MCH MCHC RDW Plt Count MPV Immature Gran % (Auto) Neut % (Auto) Lymph % (Auto) [place] % (Auto) Eos % (Auto) Baso % (Auto) Lymph # (Auto) [place] # (Auto) Eos # (Auto) Baso # (Auto) Abs Immat Gran (auto) Absolute Neuts (auto) Absolute Nucleated RBC Nucleated RBC % (auto) Hold Purple Top VBG pH VBG pCO2 VBG pO2 VBG HCO3 VBG O2 Saturation VBG Base Excess Anion Gap Estim Creat Clear Calc Estimated GFR POC Glucose Random Glucose Lactic Acid Lactic Acid F/U @ 2Hr Lactic Acid F/U @ 4Hr Calcium Magnesium Total Bilirubin AST ALT Alkaline Phosphatase 69 Total Protein Cancelled 7.9 Albumin Cancelled 4.6 Beta HCG, Quant < 2 Urine Color Urine Appearance Urine pH Ur Specific [place] Urine Protein Urine Glucose (UA) Urine Ketones Urine Blood Urine Nitrite Ur Leukocyte Esterase Urine RBC Urine WBC Ur Squamous Epith Cells Urine Bacteria Hyaline Casts Salicylates < 5.0 L Urine Opiates Screen Ur Buprenorphine Scrn Ur Oxycodone Screen Urine Methadone Screen Urine Fentanyl Screen Acetaminophen < 3 Ur Barbiturates Screen Ur Phencyclidine Scrn Ur Amphetamines Screen U Benzodiazepines Scrn Urine Cocaine Screen U Marijuana (THC) Screen Ethyl Alcohol < 10 01/21/25 01/21/25 01/21/25 16:25 18:25 18:37 MCV MCH MCHC RDW Plt Count MPV Immature Gran % (Auto) Neut % (Auto) Lymph % (Auto) [place] % (Auto) Eos % (Auto) Baso % (Auto) Lymph # (Auto) [place] # (Auto) Eos # (Auto) Baso # (Auto) Abs Immat Gran (auto) Absolute Neuts (auto) Absolute Nucleated RBC Nucleated RBC % (auto) Hold Purple Top SEE NOTE VBG pH 7.29 L VBG pCO2 35 VBG pO2 73 VBG HCO3 17 L VBG O2 Saturation 91.0 VBG Base Excess -8.2 Anion Gap Estim Creat Clear Calc Estimated GFR POC Glucose Random Glucose Lactic Acid 5.2 H* Lactic Acid F/U @ 2Hr Lactic Acid F/U @ 4Hr Calcium Magnesium Total Bilirubin AST ALT Alkaline Phosphatase Total Protein Albumin Beta HCG, Quant Urine Color Urine Appearance Urine pH Ur Specific [place] Urine Protein Urine Glucose (UA) Urine Ketones Urine Blood Urine Nitrite Ur Leukocyte Esterase Urine RBC Urine WBC Ur Squamous Epith Cells Urine Bacteria Hyaline Casts Salicylates Urine Opiates Screen Ur Buprenorphine Scrn Ur Oxycodone Screen Urine Methadone Screen Urine Fentanyl Screen Acetaminophen Ur Barbiturates Screen Ur Phencyclidine Scrn Ur Amphetamines Screen U Benzodiazepines Scrn Urine Cocaine Screen U Marijuana (THC) Screen Ethyl Alcohol 01/21/25 01/21/25 01/22/25 18:50 21:25 00:44 MCV MCH MCHC RDW Plt Count MPV Immature Gran % (Auto) Neut % (Auto) Lymph % (Auto) [place] % (Auto) Eos % (Auto) Baso % (Auto) Lymph # (Auto) [place] # (Auto) Eos # (Auto) Baso # (Auto) Abs Immat Gran (auto) Absolute Neuts (auto) Absolute Nucleated RBC Nucleated RBC % (auto) Hold Purple Top VBG pH VBG pCO2 VBG pO2 VBG HCO3 VBG O2 Saturation VBG Base Excess Anion Gap Estim Creat Clear Calc Estimated GFR POC Glucose Random Glucose Lactic Acid Lactic Acid F/U @ 2Hr 2.7 H* Lactic Acid F/U @ 4Hr 5.5 H* Calcium Magnesium Total Bilirubin AST ALT Alkaline Phosphatase Total Protein Albumin Beta HCG, Quant Urine Color Yellow Urine Appearance Clear Urine pH 6.0 Ur Specific [place] <= 1.005 Urine Protein Negative Urine Glucose (UA) Negative Urine Ketones Negative Urine Blood Large (3+) H Urine Nitrite Negative Ur Leukocyte Esterase Negative Urine RBC >20 H Urine WBC 0-5 Ur Squamous Epith Cells 0-2 Urine Bacteria None Seen Hyaline Casts 0-2 Salicylates Urine Opiates Screen Not Detected Ur Buprenorphine Scrn Not Detected Ur Oxycodone Screen Not Detected Urine Methadone Screen Not Detected Urine Fentanyl Screen Not Detected Acetaminophen Ur Barbiturates Screen Not Detected Ur Phencyclidine Scrn Not Detected Ur Amphetamines Screen Not Detected U Benzodiazepines Scrn Not Detected Urine Cocaine Screen Not Detected U Marijuana (THC) Screen Not Detected Ethyl Alcohol 01/22/25 01/22/25 02:04 02:32 MCV MCH MCHC RDW Plt Count MPV Immature Gran % (Auto) Neut % (Auto) Lymph % (Auto) [place] % (Auto) Eos % (Auto) Baso % (Auto) Lymph # (Auto) [place] # (Auto) Eos # (Auto) Baso # (Auto) Abs Immat Gran (auto) Absolute Neuts (auto) Absolute Nucleated RBC Nucleated RBC % (auto) Hold Purple Top VBG pH VBG pCO2 VBG pO2 VBG HCO3 VBG O2 Saturation VBG Base Excess Anion Gap Estim Creat Clear Calc Estimated GFR POC Glucose 48 L* 121 H Random Glucose Lactic Acid Lactic Acid F/U @ 2Hr Lactic Acid F/U @ 4Hr Calcium Magnesium Total Bilirubin AST ALT Alkaline Phosphatase Total Protein Albumin Beta HCG, Quant Urine Color Urine Appearance Urine pH Ur Specific [place] Urine Protein Urine Glucose (UA) Urine Ketones Urine Blood Urine Nitrite Ur Leukocyte Esterase Urine RBC Urine WBC Ur Squamous Epith Cells Urine Bacteria Hyaline Casts Salicylates Urine Opiates Screen Ur Buprenorphine Scrn Ur Oxycodone Screen Urine Methadone Screen Urine Fentanyl Screen Acetaminophen Ur Barbiturates Screen Ur Phencyclidine Scrn Ur Amphetamines Screen U Benzodiazepines Scrn Urine Cocaine Screen U Marijuana (THC) Screen Ethyl Alcohol Assessment and Plan (1) Acute encephalopathy: Status: Acute (2) Overdose: Status: Acute (3) Acute metabolic acidosis: Status: Acute (4) Acute lactic acidosis: Status: Acute (5) DENIS (acute kidney injury): Status: Acute Plan Patient is a 19-year-old trans female to male patient with a past medical history significant for PTSD, OCD, borderline personality disorder, chronic SI attempts with frequent psych admissions, previous intentional Benadryl overdose and bulimia, who presented to the ED after being found trying to drink from a puddle, licking a car. Acute toxic encephalopathy secondary to TCA overdose - UTox negative - no leukocytosis, tachycardic and tachypneic likely secondary to TCA overdose - lactic acid 5.2, 2.7 then 5.7 - question of possible seizure - head CT negative - UA negative - EKG with sinus tachycardia, QTC prolonged at 543 - MRI head/brain with and without contrast - neuro consult - serial EKGs q.2h, monitor QTC - magnesium 2.0, given additional 2 g in ED - monitor on tele - NPO until better mentation Acute lactic acidosis - question of possible seizure, may be related to DENIS. No infectious source identified - given 2 L IV fluids in ED - blood pressure normal - D5 LR 100 mL/HR DENIS - creatinine 1.14 - 2 L IV fluids plus maintenance fluids as above - avoid nephrotoxins - monitor BMP Mental health history - consider care team eval once medically cleared Med rec pending Full code VTE prophylaxis: Heparin Patient with acute toxic encephalopathy secondary to likely TCA overdose complicated by DENIS, requiring admission for at least 2 midnight stay for further evaluation, monitoring. Quality Stroke Does the patient have a stroke diagnosis?: No VTE Prior VTE?: No VTE Risk Level:: Medical - moderate - high VTE Device Contraindication: Treatment Not Indicated VTE Drug Contraindication: N/A - Med Ordered
[2025-01-22] MEDS: Magnesium Sulfate/H2O 2 GM/50 ML PIGGYBACK IV (02:59)
--- NOTE | 2025-01-22 03:05 | PC.NURSE ---
Spoke with mother Diamond [phone] who states only missing medication at home is Benadryl, denies seizure hx. She will be here tomorrow. Pt has now had 2 seizures since arrival to facility, lasting under a minute each approximately. Also spoke with Poison control, described pt presentation, lab results. Received recommendations to repeat EKG, chem and lactic acid. Monitor for prolonged QTC. Call [facility] at [phone] with results. ID of patient confirmed with medical ID on his phone.
[2025-01-22 03:12] LABS: Magnesium 2.0 mg/dL (1.6-2.6)
[2025-01-22] MEDS: Dextrose 5 % and Lactated Ring 1,000 ML 100 ML IVCONT ×2 (03:55→14:41)
--- NOTE | 2025-01-22 04:14 | PC.NURSE ---
spoke with poison control, requesting repeat EKG at this time rather than at 0500 as ordered by provider
--- NOTE | 2025-01-22 04:31 | PC.NURSE ---
poison control continues to recommend q2hr ekg at this time, keppra as needed.
--- NOTE | 2025-01-22 05:00 | ECG_ITS ---
Test Reason : SEIZURE Blood Pressure : */* mmHG Vent. Rate : 93 BPM Atrial Rate : 93 BPM P-R Int : 166 ms QRS Dur : 108 ms QT Int : 440 ms P-R-T Axes : 30 56 45 degrees QTcB Int : 547 ms Normal sinus rhythm Prolonged QT Abnormal ECG When compared with ECG of 22-Jan-2025 02:27, No significant change was found Referred By: Nely Becker Electronically Signed By: COLT MOSELEY MD
--- NOTE | 2025-01-22 08:09 | HO.PM.IMPN ---
Subjective Subjective Date of Service: 01/22/25 Interval History: no complaints Physical Exam Exam: Exam: lethargic, sluggish, mild tremor, some extrapyramidal rigidity, oriented to person and place only, non participatory Vital Signs: Vital Signs: Last Vital Signs Temp 98.8 F 01/22/25 07:59 Pulse 105 H 01/22/25 07:59 Resp 20 01/22/25 07:59 BP 121/75 01/22/25 07:59 Pulse Ox 100 01/22/25 07:59 O2 Del Method Room Air 01/22/25 07:59 O2 Flow Rate 2 01/22/25 00:47 BMI result Body Mass Index 29.0 Objective Data Active Medications Acetaminophen (Acetaminophen 325 Mg Tablet) 975 mg PO Q6H PRN PRN Reason: Pain, Mild 1-3,fever,headache Calcium Carbonate (Calcium Carbonate 750 Mg Tab.Chew) 750 mg PO Q4H PRN PRN Reason: Heartburn Diazepam (Diazepam 10 Mg/2 Ml Cartridge) 5 mg IVPUSH Q2H PRN PRN Reason: Seizures Heparin Sodium (Porcine) (Heparin Sodium,Porcine 5,000 Unit/Ml Vial) 5,000 unit SUBCUT Q8H [facility] Last Admin: 01/22/25 03:54 Dose: 5,000 unit Documented By: AMIE Dextrose/Lactated Ringer's (D5lr) 1,000 mls @ 100 mls/hr IVCONT .Q10H [facility] Last Admin: 01/22/25 03:55 Dose: 100 mls/hr Documented By: AMIE Magnesium Hydroxide (Milk Of Magnesia 30 Ml Oral.Susp) 30 ml PO DAILY PRN PRN Reason: Constipation Melatonin (Melatonin 3 Mg Tablet) 6 mg PO BEDTIME PRN PRN Reason: Insomnia Sodium Chloride (0.9 % Sodium Chloride Flush 3 Ml Syringe) 3 ml IVFLUSH QSHIFT [facility] Last Admin: 01/22/25 07:38 Dose: Not Given Documented By: CHARLEY Non-Admin Reason: IV Running Labs 01/21/25 13:25 01/21/25 13:25 Labs: Laboratory Results - last 24 hr 01/21/25 01/21/25 01/21/25 13:25 13:25 13:25 MCV 88.2 MCH 30.0 MCHC 34.0 RDW 12.6 Plt Count 229 MPV 10.9 Immature Gran % (Auto) 0.3 Neut % (Auto) 67.1 Lymph % (Auto) 26.2 [place] % (Auto) 5.7 Eos % (Auto) 0.1 Baso % (Auto) 0.6 Lymph # (Auto) 2.0 [place] # (Auto) 0.4 Eos # (Auto) 0.0 Baso # (Auto) 0.1 Abs Immat Gran (auto) 0.02 Absolute Neuts (auto) 5.2 Absolute Nucleated RBC 0.000 Nucleated RBC % (auto) 0.0 Hold Purple Top VBG pH VBG pCO2 VBG pO2 VBG HCO3 VBG O2 Saturation VBG Base Excess Anion Gap Cancelled 20 Estim Creat Clear Calc Cancelled TNP Estimated GFR Cancelled POC Glucose Random Glucose Lactic Acid Lactic Acid F/U @ 2Hr Lactic Acid F/U @ 4Hr Calcium Magnesium Total Bilirubin AST ALT Alkaline Phosphatase Total Protein Albumin TSH Beta HCG, Quant Urine Color Urine Appearance Urine pH Ur Specific Jack Urine Protein Urine Glucose (UA) Urine Ketones Urine Blood Urine Nitrite Ur Leukocyte Esterase Urine RBC Urine WBC Ur Squamous Epith Cells Urine Bacteria Hyaline Casts Salicylates Urine Opiates Screen Ur Buprenorphine Scrn Ur Oxycodone Screen Urine Methadone Screen Urine Fentanyl Screen Acetaminophen Ur Barbiturates Screen Ur Phencyclidine Scrn Ur Amphetamines Screen U Benzodiazepines Scrn Urine Cocaine Screen U Marijuana (THC) Screen Ethyl Alcohol 01/21/25 01/21/25 01/21/25 13:25 13:25 13:25 MCV MCH MCHC RDW Plt Count MPV Immature Gran % (Auto) Neut % (Auto) Lymph % (Auto) [place] % (Auto) Eos % (Auto) Baso % (Auto) Lymph # (Auto) [place] # (Auto) Eos # (Auto) Baso # (Auto) Abs Immat Gran (auto) Absolute Neuts (auto) Absolute Nucleated RBC Nucleated RBC % (auto) Hold Purple Top VBG pH VBG pCO2 VBG pO2 VBG HCO3 VBG O2 Saturation VBG Base Excess Anion Gap Estim Creat Clear Calc Estimated GFR 58 POC Glucose Random Glucose Cancelled 70 Lactic Acid Lactic Acid F/U @ 2Hr Lactic Acid F/U @ 4Hr Calcium Cancelled 8.7 Magnesium 2.0 Total Bilirubin Cancelled AST ALT Alkaline Phosphatase Total Protein Albumin TSH Beta HCG, Quant Urine Color Urine Appearance Urine pH Ur Specific Jack Urine Protein Urine Glucose (UA) Urine Ketones Urine Blood Urine Nitrite Ur Leukocyte Esterase Urine RBC Urine WBC Ur Squamous Epith Cells Urine Bacteria Hyaline Casts Salicylates Urine Opiates Screen Ur Buprenorphine Scrn Ur Oxycodone Screen Urine Methadone Screen Urine Fentanyl Screen Acetaminophen Ur Barbiturates Screen Ur Phencyclidine Scrn Ur Amphetamines Screen U Benzodiazepines Scrn Urine Cocaine Screen U Marijuana (THC) Screen Ethyl Alcohol 01/21/25 01/21/25 01/21/25 13:25 13:25 13:25 MCV MCH MCHC RDW Plt Count MPV Immature Gran % (Auto) Neut % (Auto) Lymph % (Auto) [place] % (Auto) Eos % (Auto) Baso % (Auto) Lymph # (Auto) [place] # (Auto) Eos # (Auto) Baso # (Auto) Abs Immat Gran (auto) Absolute Neuts (auto) Absolute Nucleated RBC Nucleated RBC % (auto) Hold Purple Top VBG pH VBG pCO2 VBG pO2 VBG HCO3 VBG O2 Saturation VBG Base Excess Anion Gap Estim Creat Clear Calc Estimated GFR POC Glucose Random Glucose Lactic Acid Lactic Acid F/U @ 2Hr Lactic Acid F/U @ 4Hr Calcium Magnesium Total Bilirubin 0.4 AST Cancelled 49 H ALT Cancelled 29 Alkaline Phosphatase Cancelled Total Protein Albumin TSH Beta HCG, Quant Urine Color Urine Appearance Urine pH Ur Specific Jack Urine Protein Urine Glucose (UA) Urine Ketones Urine Blood Urine Nitrite Ur Leukocyte Esterase Urine RBC Urine WBC Ur Squamous Epith Cells Urine Bacteria Hyaline Casts Salicylates Urine Opiates Screen Ur Buprenorphine Scrn Ur Oxycodone Screen Urine Methadone Screen Urine Fentanyl Screen Acetaminophen Ur Barbiturates Screen Ur Phencyclidine Scrn Ur Amphetamines Screen U Benzodiazepines Scrn Urine Cocaine Screen U Marijuana (THC) Screen Ethyl Alcohol 01/21/25 01/21/25 01/21/25 13:25 13:25 13:25 MCV MCH MCHC RDW Plt Count MPV Immature Gran % (Auto) Neut % (Auto) Lymph % (Auto) [place] % (Auto) Eos % (Auto) Baso % (Auto) Lymph # (Auto) [place] # (Auto) Eos # (Auto) Baso # (Auto) Abs Immat Gran (auto) Absolute Neuts (auto) Absolute Nucleated RBC Nucleated RBC % (auto) Hold Purple Top VBG pH VBG pCO2 VBG pO2 VBG HCO3 VBG O2 Saturation VBG Base Excess Anion Gap Estim Creat Clear Calc Estimated GFR POC Glucose Random Glucose Lactic Acid Lactic Acid F/U @ 2Hr Lactic Acid F/U @ 4Hr Calcium Magnesium Total Bilirubin AST ALT Alkaline Phosphatase 69 Total Protein Cancelled 7.9 Albumin Cancelled 4.6 TSH 2.80 Beta HCG, Quant < 2 Urine Color Urine Appearance Urine pH Ur Specific Jack Urine Protein Urine Glucose (UA) Urine Ketones Urine Blood Urine Nitrite Ur Leukocyte Esterase Urine RBC Urine WBC Ur Squamous Epith Cells Urine Bacteria Hyaline Casts Salicylates < 5.0 L Urine Opiates Screen Ur Buprenorphine Scrn Ur Oxycodone Screen Urine Methadone Screen Urine Fentanyl Screen Acetaminophen < 3 Ur Barbiturates Screen Ur Phencyclidine Scrn Ur Amphetamines Screen U Benzodiazepines Scrn Urine Cocaine Screen U Marijuana (THC) Screen Ethyl Alcohol < 10 01/21/25 01/21/25 01/21/25 16:25 18:25 18:37 MCV MCH MCHC RDW Plt Count MPV Immature Gran % (Auto) Neut % (Auto) Lymph % (Auto) [place] % (Auto) Eos % (Auto) Baso % (Auto) Lymph # (Auto) [place] # (Auto) Eos # (Auto) Baso # (Auto) Abs Immat Gran (auto) Absolute Neuts (auto) Absolute Nucleated RBC Nucleated RBC % (auto) Hold Purple Top SEE NOTE VBG pH 7.29 L VBG pCO2 35 VBG pO2 73 VBG HCO3 17 L VBG O2 Saturation 91.0 VBG Base Excess -8.2 Anion Gap Estim Creat Clear Calc Estimated GFR POC Glucose Random Glucose Lactic Acid 5.2 H* Lactic Acid F/U @ 2Hr Lactic Acid F/U @ 4Hr Calcium Magnesium Total Bilirubin AST ALT Alkaline Phosphatase Total Protein Albumin TSH Beta HCG, Quant Urine Color Urine Appearance Urine pH Ur Specific Jack Urine Protein Urine Glucose (UA) Urine Ketones Urine Blood Urine Nitrite Ur Leukocyte Esterase Urine RBC Urine WBC Ur Squamous Epith Cells Urine Bacteria Hyaline Casts Salicylates Urine Opiates Screen Ur Buprenorphine Scrn Ur Oxycodone Screen Urine Methadone Screen Urine Fentanyl Screen Acetaminophen Ur Barbiturates Screen Ur Phencyclidine Scrn Ur Amphetamines Screen U Benzodiazepines Scrn Urine Cocaine Screen U Marijuana (THC) Screen Ethyl Alcohol 01/21/25 01/21/25 01/22/25 18:50 21:25 00:44 MCV MCH MCHC RDW Plt Count MPV Immature Gran % (Auto) Neut % (Auto) Lymph % (Auto) [place] % (Auto) Eos % (Auto) Baso % (Auto) Lymph # (Auto) [place] # (Auto) Eos # (Auto) Baso # (Auto) Abs Immat Gran (auto) Absolute Neuts (auto) Absolute Nucleated RBC Nucleated RBC % (auto) Hold Purple Top VBG pH VBG pCO2 VBG pO2 VBG HCO3 VBG O2 Saturation VBG Base Excess Anion Gap Estim Creat Clear Calc Estimated GFR POC Glucose Random Glucose Lactic Acid Lactic Acid F/U @ 2Hr 2.7 H* Lactic Acid F/U @ 4Hr 5.5 H* Calcium Magnesium Total Bilirubin AST ALT Alkaline Phosphatase Total Protein Albumin TSH Beta HCG, Quant Urine Color Yellow Urine Appearance Clear Urine pH 6.0 Ur Specific Jack <= 1.005 Urine Protein Negative Urine Glucose (UA) Negative Urine Ketones Negative Urine Blood Large (3+) H Urine Nitrite Negative Ur Leukocyte Esterase Negative Urine RBC >20 H Urine WBC 0-5 Ur Squamous Epith Cells 0-2 Urine Bacteria None Seen Hyaline Casts 0-2 Salicylates Urine Opiates Screen Not Detected Ur Buprenorphine Scrn Not Detected Ur Oxycodone Screen Not Detected Urine Methadone Screen Not Detected Urine Fentanyl Screen Not Detected Acetaminophen Ur Barbiturates Screen Not Detected Ur Phencyclidine Scrn Not Detected Ur Amphetamines Screen Not Detected U Benzodiazepines Scrn Not Detected Urine Cocaine Screen Not Detected U Marijuana (THC) Screen Not Detected Ethyl Alcohol 01/22/25 01/22/25 01/22/25 02:04 02:32 02:54 MCV MCH MCHC RDW Plt Count MPV Immature Gran % (Auto) Neut % (Auto) Lymph % (Auto) [place] % (Auto) Eos % (Auto) Baso % (Auto) Lymph # (Auto) [place] # (Auto) Eos # (Auto) Baso # (Auto) Abs Immat Gran (auto) Absolute Neuts (auto) Absolute Nucleated RBC Nucleated RBC % (auto) Hold Purple Top VBG pH VBG pCO2 VBG pO2 VBG HCO3 VBG O2 Saturation VBG Base Excess Anion Gap Estim Creat Clear Calc Estimated GFR POC Glucose 48 L* 121 H Random Glucose Lactic Acid 1.5 Lactic Acid F/U @ 2Hr Lactic Acid F/U @ 4Hr Calcium Magnesium 2.0 Total Bilirubin AST ALT Alkaline Phosphatase Total Protein Albumin TSH Beta HCG, Quant Urine Color Urine Appearance Urine pH Ur Specific Jack Urine Protein Urine Glucose (UA) Urine Ketones Urine Blood Urine Nitrite Ur Leukocyte Esterase Urine RBC Urine WBC Ur Squamous Epith Cells Urine Bacteria Hyaline Casts Salicylates Urine Opiates Screen Ur Buprenorphine Scrn Ur Oxycodone Screen Urine Methadone Screen Urine Fentanyl Screen Acetaminophen Ur Barbiturates Screen Ur Phencyclidine Scrn Ur Amphetamines Screen U Benzodiazepines Scrn Urine Cocaine Screen U Marijuana (THC) Screen Ethyl Alcohol Assessment and Plan (1) Acute encephalopathy: Status: Acute Plan 19 trans male PMH PTSD, OCD, borederline personality disorder, mood diosrder with SI history, bulimia, presented with altered mental status Acute toxic metabolic encephalopathy due to Benadryl overdose Reports trying to get high denies suicidality Continue tele, EKG QT monitor QTC monitor electrolytes Acute lactic acidosis Possibly due to seizure Not sepsis Neuro eval, MRI Acute kidney injury IV fluids, monitor Multiple psych diagnoses with unintentional overdose Likely care team eval prior to discharge DVT prophylaxis with heparin subQ Full code reason for continued hospitalization: Altered mental status Quality Stroke Does the patient have a stroke diagnosis?: No VTE Prior VTE?: No VTE Risk Level:: Medical - moderate - high VTE Device Contraindication: Treatment Not Indicated VTE Drug Contraindication: N/A - Med Ordered
--- NOTE | 2025-01-22 08:22 | PC.NURSE ---
Patient is starting to stir is delusional but redirectable states was trying to get up to go to [employer]. She states she's not suicidal but gets high with benadryl. He hasn't gotten out of bed but was trying to. Anika RN notified. Pulled right ac iv started to bleed. left wrist iv 20g works fine.
--- NOTE | 2025-01-22 08:31 | MHC.CM.PN ---
Patient is here with Acute Encephalopathy;CM called one of the listed phone #'s ([phone]) and spoke with an individual who reports that Patient is living in the [facility] in [place] but was once from a [facility]. Patient may benefit from a Care Team Consult r/t Benadryl overdose, to assist with disposition. CM has initiated and will follow for dc planning.PCP is Dr.Monica Galvan.
[2025-01-22 08:56] LABS: Hematocrit 35.4 % (37.0-47.0); Hemoglobin 12.3 g/dl (12.0-16.0); Mean Corpuscular HGB Conc 34.7 g/dl (31.0-35.0); Mean Corpuscular Hemoglobin 30.2 pg (27.0-33.0); Mean Corpuscular Volume 87.0 fL (80.0-98.0); NRBC Abs Auto 0.000 X10*3/uL (0.0-0.012); NRBC Pct Auto 0.0 /100WBC (0.0-0.2); Platelet Count 230 X10*3/uL (160-400); Red Blood Count 4.07 X10*6/uL (4.20-5.50); White Blood Count 11.2 X10*3/uL (4.8-10.8)
[2025-01-22 09:09] LABS: Blood Urea Nitrogen 10 mg/dL (9-16); Calcium 8.7 mg/dL (8.4-10.2); Creatinine Clr Calc Pharmacy 135.3; Estimated Glomerular Filt Rate > 60; Magnesium 2.2 mg/dL (1.6-2.6)
[2025-01-22 09:16] LABS: Anion Gap 14 (12-20); Carbon Dioxide 19 mmol/L (22-29); Chloride 114 mmol/L (96-108); Potassium 3.3 mmol/L (3.3-5.1); Sodium 144 mmol/L (135-145)
--- NOTE | 2025-01-22 09:23 | PM.NEUROCN ---
History of Present Illness Data of Consult Service Date: 01/22/25 Primary Care Provider: Unknown Physician HPI Reason for consult: Encephalopathy 19 years old transgender person with probably underlying significant PTSD and probably also personality disorder with significant depression and suicidal attempts was brought to hospital in a confused state elaborated in initial notes. No history was obtainable from the patient. No evidence of seizure or focal weakness. No known recent head injury initial CAT scan did not reveal any significant acute abnormality. Review of Systems Review of Systems: Could not be done PMFSH Past Medical History Medical History PTSD (post-traumatic stress disorder) Borderline personality disorder Bulimia OCD (obsessive compulsive disorder) Drug overdose Social History Social History Household Members: Other Housing: Other Housing Other:: [facility]). Do you presently have visiting nurse or other home services: No Unable to assess alcohol history related to: Refusing to respond Alcohol intake: never Patient Tobacco Use Status: Never used Tobacco e-Cigarette/Vaping Use: Never Used Second Hand Smoke Exposure: No Substance Use Type: Marijuana service: No Sexual orientation: Did not discuss Meds Allergies Allergy/AdvReac Type Severity Reaction Status Date / Time No Known Allergies Allergy Unverified 01/21/25 19:01 Active Medications: Current Medications Acetaminophen (Acetaminophen 325 Mg Tablet) 975 mg PO Q6H PRN PRN Reason: Pain, Mild 1-3,fever,headache Calcium Carbonate (Calcium Carbonate 750 Mg Tab.Chew) 750 mg PO Q4H PRN PRN Reason: Heartburn Diazepam (Diazepam 10 Mg/2 Ml Cartridge) 5 mg IVPUSH Q2H PRN PRN Reason: Seizures Heparin Sodium (Porcine) (Heparin Sodium,Porcine 5,000 Unit/Ml Vial) 5,000 unit SUBCUT Q8H [facility] Last Admin: 01/22/25 03:54 Dose: 5,000 unit Dextrose/Lactated Ringer's (D5lr) 1,000 mls @ 100 mls/hr IVCONT .Q10H [facility] Last Admin: 01/22/25 03:55 Dose: 100 mls/hr Magnesium Hydroxide (Milk Of Magnesia 30 Ml Oral.Susp) 30 ml PO DAILY PRN PRN Reason: Constipation Melatonin (Melatonin 3 Mg Tablet) 6 mg PO BEDTIME PRN PRN Reason: Insomnia Sodium Chloride (0.9 % Sodium Chloride Flush 3 Ml Syringe) 3 ml IVFLUSH QSHIFT [facility] Last Admin: 01/22/25 07:38 Dose: Not Given Home Medications ?Medication ?Instructions ?Recorded ?Confirmed ?Last Taken ?Type polyethylene glycol 3350 17 17 g PO DAILY PRN Constipation 09/26/23 10/25/23 Unknown History gram/dose oral powder (Miralax) olanzapine 10 mg tablet 10 mg PO BEDTIME 10/25/23 10/25/23 Unknown History olanzapine 5 mg tablet 5 mg PO BEDTIME 10/25/23 10/25/23 Unknown History chlorpromazine 25 mg tablet 25 mg PO BID 01/22/25 Unknown History chlorpromazine 50 mg tablet 50 mg PO TID 01/22/25 01/22/25 Unknown History clomipramine 75 mg capsule 150 mg PO DAILY 01/22/25 Unknown History diphenhydramine HCl 50 mg capsule 100 mg PO BEDTIME 01/22/25 Unknown History (Banophen) medroxyprogesterone 150 mg/mL 150 mg IM Q3M 01/22/25 Unknown History intramuscular suspension Physical Exam Vital Signs: Vital Signs: Last Vital Signs Temp 98.8 F 01/22/25 07:59 Pulse 105 H 01/22/25 07:59 Resp 20 01/22/25 07:59 BP 121/75 01/22/25 07:59 Pulse Ox 100 01/22/25 07:59 O2 Del Method Room Air 01/22/25 07:59 O2 Flow Rate 2 01/22/25 00:47 BMI result Body Mass Index 29.0 Neuro: Other: Drowsy but eyes open and made eye contact. Seem to be whispering but I could not make any sense. Followed some one-step commands. No eyes deviation or jerking. Face was symmetrical. Not moving arms or legs other than moving toes and fingers. Deep tendon reflexes are absent with flexor plantars. Results Labs 01/22/25 08:49 01/22/25 08:49 Labs: Short CBC 01/21/25 01/22/25 Range/Units 13:25 08:49 WBC 7.8 11.2 H (4.8-10.8) X10*3/uL Hgb 13.5 12.3 (12.0-16.0) g/dl Hct 39.7 35.4 L (37.0-47.0) % Plt Count 229 230 (160-400) X10*3/uL BMP 01/21/25 01/21/25 01/21/25 13:25 13:25 13:25 Sodium Cancelled 139 Potassium Cancelled 4.7 Chloride Cancelled Carbon Dioxide BUN Creatinine Calcium 01/21/25 01/21/25 01/21/25 13:25 13:25 13:25 Sodium Potassium Chloride 107 Carbon Dioxide Cancelled 17 L BUN Cancelled 14 Creatinine Cancelled Calcium 01/21/25 01/21/25 01/22/25 13:25 13:25 08:49 Sodium 144 Potassium 3.3 D Chloride 114 H Carbon Dioxide 19 L BUN 10 Creatinine 1.14 0.72 Calcium Cancelled 8.7 8.7 Liver Function 01/21/25 01/21/25 01/21/25 Range/Units 13:25 13:25 13:25 Total Bilirubin Cancelled 0.4 AST Cancelled 49 H ALT Cancelled Alkaline Phosphatase Albumin 01/21/25 01/21/25 01/21/25 Range/Units 13:25 13:25 13:25 Total Bilirubin AST ALT 29 Alkaline Phosphatase Cancelled 69 Albumin Cancelled 4.6 Urine 01/21/25 Range/Units 18:50 Urine Color Yellow Urine Appearance Clear Urine pH 6.0 (5.0-9.0) Ur Specific [place] <= 1.005 (1.005-1.025) Urine Protein Negative (Neg-Trace) mg/dL Urine Glucose (UA) Negative (Negative) mg/dL Head CT did not reveal any acute abnormality Assessment and Plan (1) Acute encephalopathy: Status: Acute Probably a combination of toxic and behavioral disorder resulting in abnormal behavior. Examination was more suggestive of behavioral disorder than toxicity at this time. There was no obvious metabolic abnormality. I recommend an EEG to rule out epileptic encephalopathy. Psychiatric evaluation is also recommended. Procedures Date of Service Date of Service: 01/22/25
--- NOTE | 2025-01-22 11:07 | P.CDIM_ITS ---
PROVIDER RESPONSE TEXT: To clarify, the appropriate diagnosis supported by the clinical indicators: Hypoglycemia: resolved QUERY TEXT: PHYSICIAN'S DOCUMENTATION REQUEST Date of Query: 01/22/2025 10:59 AM EDT Patient Name: Florin Jaramillo Admit Date: 01/22/2025 Dear Balwinder Mitchell MD, A review of the medical record indicates additional documentation may be needed. Please review below and update the documentation accordingly. Clinical Indicators: LABS: POC glucose 48 L IV Dextrose/fluids Overdose on Benadryl , AMS, confused. Based on the above, is there a diagnosis that correlates with these findings Hypoglycemia resolved, suspected, possible etc. Labs indicate a diagnosis of (please specify) Other (explain) Clinically unable to determine (explain) Thank you, Kaye Fan, CCS, CDIS Use of terms such as suspected, likely, concern for, or probable (associated with a specific diagnosis that is being evaluated, monitored, or treated as if it exists) are acceptable and can be coded in the inpatient setting, when documented at the time of discharge. Please use your independent medical judgment in providing your response. THIS QUERY IS PART OF THE PERMANENT MEDICAL RECORD
[2025-01-22 11:30] LABS: VBG HCO3 22 mmol/L (22-26); VBG O2 % Saturation 87.0 %
[2025-01-22 11:30] LABS: Venous Blood Gas Refer to POC result
--- NOTE | 2025-01-22 12:13 | PHA.MEDREC ---
Pharmacy Consult ? Medication Reconciliation Pharmacy has completed the medication reconciliation. Messaged left with patient's mother for clarification, used claim history to complete for now.
--- NOTE | 2025-01-22 17:00 | ECG_ITS ---
Test Reason : prolonged qt Blood Pressure : */* mmHG Vent. Rate : 95 BPM Atrial Rate : 95 BPM P-R Int : 162 ms QRS Dur : 112 ms QT Int : 438 ms P-R-T Axes : 17 53 69 degrees QTcB Int : 550 ms Normal sinus rhythm Prolonged QT Abnormal ECG When compared with ECG of 22-Jan-2025 13:59, Sinus rhythm has replaced Ectopic atrial rhythm QRS axis Shifted left Borderline criteria for Inferior infarct are no longer Present Referred By: Julius Chaidez Electronically Signed By: COLT MOSELEY MD
--- NOTE | 2025-01-22 17:00 | ECG_ITS ---
Test Reason : check QtC Blood Pressure : */* mmHG Vent. Rate : 100 BPM Atrial Rate : 100 BPM P-R Int : 154 ms QRS Dur : 102 ms QT Int : 400 ms P-R-T Axes : 22 59 59 degrees QTcB Int : 516 ms Normal sinus rhythm Nonspecific ST abnormality Prolonged QT Abnormal ECG When compared with ECG of 22-Jan-2025 14:05, No significant change was found Referred By: Balwinder Mitchell Electronically Signed By: COLT MOSELEY MD
--- NOTE | 2025-01-22 18:03 | ECG_ITS ---
Test Reason : qt Blood Pressure : */* mmHG Vent. Rate : 101 BPM Atrial Rate : 101 BPM P-R Int : 158 ms QRS Dur : 104 ms QT Int : 402 ms P-R-T Axes : 20 59 60 degrees QTcB Int : 521 ms Sinus tachycardia Prolonged QT Abnormal ECG When compared with ECG of 22-Jan-2025 18:05, No significant change was found Referred By: Balwinder Mitchell Electronically Signed By: COLT MOSELEY MD
--- NOTE | 2025-01-22 19:00 | ECG_ITS ---
Test Reason : CHECH QTC Blood Pressure : */* mmHG Vent. Rate : 96 BPM Atrial Rate : 96 BPM P-R Int : 178 ms QRS Dur : 106 ms QT Int : 410 ms P-R-T Axes : 25 59 46 degrees QTcB Int : 517 ms Normal sinus rhythm Prolonged QT Abnormal ECG No previous ECGs available Referred By: Julius Chaidez Electronically Signed By: COLT MOSELEY MD
--- NOTE | 2025-01-22 19:00 | ECG_ITS ---
Test Reason : santol Blood Pressure : */* mmHG Vent. Rate : 94 BPM Atrial Rate : 94 BPM P-R Int : 162 ms QRS Dur : 106 ms QT Int : 420 ms P-R-T Axes : 28 76 63 degrees QTcB Int : 525 ms Normal sinus rhythm Nonspecific ST abnormality Prolonged QT Abnormal ECG When compared with ECG of 22-Jan-2025 07:32, No significant change was found Referred By: Julius Chaidez Electronically Signed By: COLT MOSELEY MD
[2025-01-22] MEDS: 0.9 % Sodium Chloride Flush 3 ML SYRINGE IVFLUSH (20:29)
--- NOTE | 2025-01-22 21:00 | ECG_ITS ---
Test Reason : prolonged qtc Blood Pressure : */* mmHG Vent. Rate : 95 BPM Atrial Rate : 95 BPM P-R Int : 152 ms QRS Dur : 106 ms QT Int : 420 ms P-R-T Axes : 164 132 123 degrees QTcB Int : 527 ms Suspect limb lead reversal, interpretation assumes no reversal Unusual P axis, possible ectopic atrial rhythm Lateral infarct , age undetermined Possible Inferior infarct , age undetermined Prolonged QT Abnormal ECG When compared with ECG of 22-Jan-2025 10:49, Ectopic atrial rhythm has replaced Sinus rhythm QRS axis Shifted right Nonspecific T wave abnormality now evident in Lateral leads Repeat EKG with correct arm lead placement Referred By: Julius Chaidez Electronically Signed By: COLT MOSELEY MD
--- NOTE | 2025-01-22 22:03 | ECG_ITS ---
Test Reason : MED MONOTIRING Blood Pressure : */* mmHG Vent. Rate : 108 BPM Atrial Rate : 108 BPM P-R Int : 172 ms QRS Dur : 102 ms QT Int : 390 ms P-R-T Axes : 31 41 42 degrees QTcB Int : 522 ms Sinus tachycardia Prolonged QT Abnormal ECG When compared with ECG of 22-Jan-2025 18:06, No significant change was found Referred By: Balwinder Mitchell Electronically Signed By: COLT MOSELEY MD
--- NOTE | 2025-01-22 22:23 | PM.EVENT ---
Event Note Date of Service: 01/22/25 Event Note: Pt is requesting to leave now. discussed this would be AMA. reviewed pending testing and consultations. concern for hx of SI attempt with Benadryl overdose and repeat attempt yesterday although pt denied that this was a suicide attempt. MRI, EEG and pysch/care team eval needed. pt agreeable to stay for now. discussed concern for leaving prior to complete workup. pt seen by Dr Cervantes and myself. Time Spent With Patient Time: Total time managing care of this patient today ____ minutes.
--- NOTE | 2025-01-23 02:03 | ECG_ITS ---
Test Reason : qt Blood Pressure : */* mmHG Vent. Rate : 95 BPM Atrial Rate : 95 BPM P-R Int : 146 ms QRS Dur : 122 ms QT Int : 394 ms P-R-T Axes : 17 58 60 degrees QTcB Int : 495 ms Normal sinus rhythm Non-specific intra-ventricular conduction delay Borderline ECG When compared with ECG of 22-Jan-2025 22:10, No significant change was found Referred By: Balwinder Mitchell Electronically Signed By: COLT MOSELEY MD
[2025-01-23 03:15] VITALS: BP 132/75; PULSE 100; RESP 18; TEMP 36.9; O2SAT 99
--- NOTE | 2025-01-23 06:03 | ECG_ITS ---
Test Reason : QCT Blood Pressure : */* mmHG Vent. Rate : 95 BPM Atrial Rate : 95 BPM P-R Int : 154 ms QRS Dur : 104 ms QT Int : 390 ms P-R-T Axes : 27 54 52 degrees QTcB Int : 490 ms Normal sinus rhythm Prolonged QT Abnormal ECG When compared to the previous EKG of No significant changes seen Referred By: Balwinder Mitchell Electronically Signed By: COLT MOSELEY MD
[2025-01-23 06:10] LABS: Hematocrit 33.5 % (37.0-47.0); Hemoglobin 11.3 g/dl (12.0-16.0); Mean Corpuscular HGB Conc 33.7 g/dl (31.0-35.0); Mean Corpuscular Hemoglobin 29.8 pg (27.0-33.0); Mean Corpuscular Volume 88.4 fL (80.0-98.0); NRBC Abs Auto 0.000 X10*3/uL (0.0-0.012); NRBC Pct Auto 0.0 /100WBC (0.0-0.2); Platelet Count 208 X10*3/uL (160-400); Red Blood Count 3.79 X10*6/uL (4.20-5.50); White Blood Count 10.3 X10*3/uL (4.8-10.8)
[2025-01-23 06:28] LABS: Alanine Aminotransferase 17 U/L (0-31); Albumin Level 3.6 g/dL (3.5-5.0); Alkaline Phosphatase 62 U/L (39-117); Anion Gap 9 (12-20); Aspartate Amino Transferase 20 U/L (5-31); Blood Urea Nitrogen 7 mg/dL (9-16); Calcium 8.8 mg/dL (8.4-10.2); Carbon Dioxide 23 mmol/L (22-29); Chloride 114 mmol/L (96-108); Creatinine Clr Calc Pharmacy 152.3; Estimated Glomerular Filt Rate > 60; Magnesium 1.9 mg/dL (1.6-2.6); Potassium 3.3 mmol/L (3.3-5.1); Sodium 143 mmol/L (135-145); Total Protein 6.3 g/dL (6.5-8.0)
--- NOTE | 2025-01-23 07:45 | PC.NURSE ---
Pt is A&Ox4, drowsy though appropriately arousable. Pt seen this admission with AMS in the setting of ? Benadryl vs. TCA overdose.?Poison control following with now q4hr EKGs per handoff report on assuming care. 1:1 sitter present at bedside on assuming care. Flat affect. Per review of H&P: Pt has chronic SI attempts with frequent psych admissions, previous intentional Benadryl overdose, and pt's mother found the Benadryl bottle empty again today. With previous Benadryl overdose he had a seizure.? For this publicity writer, the patient denies SI though is vague and inconsistent when describing situation/events leading to this admission, with pt initially stating I took meds to make myself sick faster with diarrhea , and at another time pt denied taking anything. Pt stated in the evening he does not want to be in the hospital and initially requested to leave. Unclear if pt has been seen by psych/care team/ ?able to leave AMA. Pt was agreeable to obtaining previously ordered MRI tonight while publicity writer contacted re: ?AMA.? Dr. Cervantes was notified and situation and patient safety concerns discussed. distribution accounting clerk and RN supervisor waterproofing were also notified.? While at MRI with the ICU resource RN, the pt made new c/o pain with flushing the IV which was removed by the RN with replacement attempted though this pt poorly tolerated. MRI was obtained without contrast and MD notified. On return to the floor, this publicity writer attempted to place an ultrasound IV in order to resume IV fluids, though the pt did not tolerate this either and refused further IV attempts. Covering Dr. Cervantes was made aware of inability to obtain IV access and as such, fluids remained on pause. Dr. Cervantes and JERI Becker presented to bedside 22:00 hour to discuss AMA and concerns with patient after this pt returned from MRI. Pt was agreeable to staying overnight. Please see JERI note for full details. A psych consult was placed by the covering provider. ~22:40 Behavioral health product development coordinator called publicity writer to discuss pt situation and advised they would reach out to psych covering, though pt would most likely be seen first thing in the morning 8/2. Pt resting in bed, offered no further complaints or requests for AMA. ?
[2025-01-23 08:00] VITALS: BP 118/64; PULSE 99; RESP 18; TEMP 37.1; O2SAT 100
--- NOTE | 2025-01-23 09:09 | HO.PM.IMPN ---
Subjective Subjective Date of Service: 01/23/25 Interval History: no complaints Physical Exam Exam: Exam: General: AO X 3, no acute distress Resp: CTA bilateral, no accessory muscles used CVS: S1,S2,RRR GI: soft, non tender, non distended Neuro: motor grossly intact, alert Vital Signs: Vital Signs: Last Vital Signs Temp 98.7 F 01/23/25 08:00 Pulse 99 01/23/25 08:00 Resp 18 01/23/25 08:00 BP 118/64 01/23/25 08:00 Pulse Ox 100 01/23/25 08:00 O2 Del Method Room Air 01/23/25 08:00 O2 Flow Rate 2 01/22/25 00:47 BMI result Body Mass Index 31.0 Objective Data Active Medications Acetaminophen (Acetaminophen 325 Mg Tablet) 975 mg PO Q6H PRN PRN Reason: Pain, Mild 1-3,fever,headache Calcium Carbonate (Calcium Carbonate 750 Mg Tab.Chew) 750 mg PO Q4H PRN PRN Reason: Heartburn Diazepam (Diazepam 10 Mg/2 Ml Cartridge) 5 mg IVPUSH Q2H PRN PRN Reason: Seizures Heparin Sodium (Porcine) (Heparin Sodium,Porcine 5,000 Unit/Ml Vial) 5,000 unit SUBCUT Q8H [facility] Last Admin: 01/23/25 03:13 Dose: 5,000 unit Documented By: KEITH Magnesium Hydroxide (Milk Of Magnesia 30 Ml Oral.Susp) 30 ml PO DAILY PRN PRN Reason: Constipation Melatonin (Melatonin 3 Mg Tablet) 6 mg PO BEDTIME PRN PRN Reason: Insomnia Sodium Chloride (0.9 % Sodium Chloride Flush 3 Ml Syringe) 3 ml IVFLUSH QSHIFT [facility] Last Admin: 01/23/25 08:30 Dose: Not Given Documented By: ADRIANNA Non-Admin Reason: No Access Labs 01/23/25 05:41 01/23/25 05:41 Labs: Laboratory Results - last 24 hr 01/22/25 01/22/25 01/22/25 08:49 11:14 11:21 MCV MCH MCHC RDW Plt Count MPV Absolute Nucleated RBC Nucleated RBC % (auto) VBG pH 7.36 VBG pCO2 39 VBG pO2 59 VBG HCO3 22 VBG O2 Saturation 87.0 VBG Base Excess -2.7 Anion Gap 14 Estim Creat Clear Calc 135.3 Estimated GFR > 60 Random Glucose 90 Lactic Acid 1.4 Calcium 8.7 Magnesium 2.2 Total Bilirubin Direct Bilirubin AST ALT Alkaline Phosphatase Total Protein Albumin 01/23/25 05:41 MCV 88.4 MCH 29.8 MCHC 33.7 RDW 13.1 Plt Count 208 MPV 10.6 Absolute Nucleated RBC 0.000 Nucleated RBC % (auto) 0.0 VBG pH VBG pCO2 VBG pO2 VBG HCO3 VBG O2 Saturation VBG Base Excess Anion Gap 9 L Estim Creat Clear Calc 152.3 Estimated GFR > 60 Random Glucose 85 Lactic Acid Calcium 8.8 Magnesium 1.9 Total Bilirubin 0.6 Direct Bilirubin 0.2 AST 20 ALT 17 Alkaline Phosphatase 62 Total Protein 6.3 L Albumin 3.6 Assessment and Plan (1) Acute encephalopathy: Status: Acute Plan 19 trans male PMH PTSD, OCD, borederline personality disorder, mood diosrder with SI history, bulimia, presented with altered mental status Acute toxic metabolic encephalopathy due to Benadryl overdose Reports trying to get high denies suicidality mental status back to baseline QTC normalized medically cleared, care team eval Acute lactic acidosis Possibly due to seizure Not sepsis mri negative neuro appreciated - outpatient EEG Acute kidney injury resolved Multiple psych diagnoses with unintentional overdose care team eval DVT prophylaxis with heparin subQ Full code reason for continued hospitalization: care team eval Quality Stroke Does the patient have a stroke diagnosis?: No VTE Prior VTE?: No VTE Risk Level:: Medical - moderate - high VTE Device Contraindication: Treatment Not Indicated VTE Drug Contraindication: N/A - Med Ordered
--- NOTE | 2025-01-23 10:19 | P.DS_ITS ---
DS: Providers Provider Date of Service: 01/23/25 Date of admission: 01/22/25 02:28 Date of discharge: 01/23/25 Primary care physician: Christina Maurer MD Consults: 01/22/25 02:51 Consult to Neurology Routine Consulting Provider: [facility] Reason for consultation: ?seizure Has provider been notified: No 01/23/25 08:15 Inpt CARE Team Crisis Consult Routine Comment: Reason for consultation: medically cleared, benadryl OD DS: Diagnosis Discharge Diagnosis (1) Acute encephalopathy: Status: Acute DS: Summary Hospital Course Hospital Course: from initial hpi: 19-year-old trans female to male patient with a past medical history significant for PTSD, OCD, borderline personality disorder, chronic SI attempts with frequent psych admissions, previous intentional Benadryl overdose and bulimia, who presented to the ED after being found trying to drink from a puddle, licking a car. The patient was minimally responsive. History is unable to be obtained by the patient. ED provider was able to speak with the patient's mother who reported that they have a history of a Benadryl overdose and the mother found the Benadryl bottle empty again today. With previous Benadryl overdose he had a seizure. The ED provider spoke to poison control who suggested this did not seem to be consistent with anticholinergic overdose, more likely TCA overdose due to delirium. Recommendations for checking QTC with serial EKGs as well as magnesium and lactic acid. hospital course: Patient was admitted for acute toxic metabolic encephalopathy due to unint entional Benadryl overdose. Reports that she was trying to get high and was not suicidal. Patient was monitored, had QT prolongation which eventually normalized. Mental status returned to baseline. Was seen by care team who recommended following out in the community. Acute lactic acidosis was possibly due to seizure not sepsis, MRI was negative, did not recur, was seen by neuro who recommended outpatient EEG. Acute kidney injury resolved with IV fluids. Patient is feeling better will be discharged home. Time Attestation Discharge Coordination Time (in mins): 35 Quality: Safe Use of Opioids Does Pt have an Active Cancer Diagnosis on the Problem List?: No Quality: Stroke Does the patient have a stroke diagnosis?: No Physical Exam Exam: Exam: General: AO X 3, no acute distress Resp: CTA bilateral, no accessory muscles used CVS: S1,S2,RRR GI: soft, non tender, non distended Neuro: motor grossly intact, alert Vital Signs: Vital Signs: Last Vital Signs Temp 98.7 F 01/23/25 08:00 Pulse 99 01/23/25 08:00 Resp 18 01/23/25 08:00 BP 118/64 01/23/25 08:00 Pulse Ox 100 01/23/25 08:00 O2 Del Method Room Air 01/23/25 08:00 O2 Flow Rate 2 01/22/25 00:47 BMI result Body Mass Index 31.0 DS: Data Data Completed and Pending Labs on day of discharge: Laboratory Results - last 24 hr 01/22/25 01/22/25 01/23/25 11:14 11:21 05:41 WBC 10.3 RBC 3.79 L Hgb 11.3 L Hct 33.5 L MCV 88.4 MCH 29.8 MCHC 33.7 RDW 13.1 Plt Count 208 MPV 10.6 Absolute Nucleated RBC 0.000 Nucleated RBC % (auto) 0.0 VBG pH 7.36 VBG pCO2 39 VBG pO2 59 VBG HCO3 22 VBG O2 Saturation 87.0 VBG Base Excess -2.7 Sodium 143 Potassium 3.3 Chloride 114 H Carbon Dioxide 23 Anion Gap 9 L BUN 7 L Creatinine 0.66 Estim Creat Clear Calc 152.3 Estimated GFR > 60 Random Glucose 85 Lactic Acid 1.4 Calcium 8.8 Magnesium 1.9 Total Bilirubin 0.6 Direct Bilirubin 0.2 AST 20 ALT 17 Alkaline Phosphatase 62 Total Protein 6.3 L Albumin 3.6 Discharge Plan Discharge Anticipated Discharge Date/Time: 01/23/25 10:18 Patient Disposition: Home, Self-Care Discharge Diagnosis: Unintentional overdose Referrals: Christina Colunga MD [Primary Care Provider, Pediatrics] - 1 Week Discharge Medications: Continued polyethylene glycol 3350 [Miralax] 17 gram/dose Powder 17 g PO DAILY PRN (Reason: Constipation) olanzapine 5 mg tablet 5 mg PO DAILY PRN (Reason: Agitation) olanzapine 10 mg tablet 10 mg PO DAILY PRN (Reason: Agitation) Rx Instructions: MAY GIVE WITHIN 1 HOUR OF 5MG DOSE IF NO RESPONSE TO 5 MG diphenhydramine HCl [Banophen] 50 mg capsule 50 - 100 mg PO BEDTIME PRN (Reason: Sleep) clomipramine 75 mg capsule 150 mg PO DAILY chlorpromazine 25 mg tablet 25 mg PO BID medroxyprogesterone 150 mg/mL suspension 150 mg IM Q3M chlorpromazine 50 mg tablet 50 mg PO TID Discharge Orders: Discharge Order (Routine); Ordered 01/23/25 Ordered By: Balwinder Mitchell Diet: Advance to usual diet Activity on Discharge: As tolerated Stand Alone Forms: Patient Portal Discharge page Print Language: [place]i Other Ambulatory Orders: EEG electroencephalogram (Routine) Timeframe: 1 Week Facility: [facility] - Location: Radiology Ordered By: Balwinder Mitchell Care Plan Goals: Manage mental health Health Concerns: Mood disorder Plan of Treatment: Follow up with healthcare professionals Assessment: See above
--- NOTE | 2025-01-23 10:45 | MHC.CM.PN ---
Patient cleared for dc by . DP: Return to [facility] ([address] [place] [address]), where she is staying w/ her mother via Lyft.
== END 2025-01-23 11:37 | disposition home or self-care (01) | DRG 812 ==
LOC: HO.ED 01-22 02:24 → HO.EDOVER 01-22 02:35 → HO.IMC 01-22 07:39
PROVIDERS: Admitting Provider Physician Assistant; Emergency Provider Internal Medicine; PCP Pediatrics; Visit Provider Internal Medicine
DX: T43.011A Poisoning by tricyclic antidepressants, accidental (unintentional), initial encounter (principal); G92.8 Other toxic encephalopathy; N17.9 Acute kidney failure, unspecified; E87.21 Acute metabolic acidosis; F05 Delirium due to known physiological condition; R56.9 Unspecified convulsions; R94.31 Abnormal electrocardiogram [ECG] [EKG]; F64.0 Transsexualism; F60.3 Borderline personality disorder; E16.2 Hypoglycemia, unspecified; F43.10 Post-traumatic stress disorder, unspecified; Z91.51 Personal history of suicidal behavior; Z79.899 Other long term (current) drug therapy
CPT/HCPCS: 36415; 70250; 70450; 70551; 71045; 74018; 80048; 80053; 80076; 80143; 80179; 80307; 81001; 82803; 82947; 83605; 83735; 84443; 84702; 85025; 85027; 93005; 99285; J1644; J2250; J3360; J3475; S9485

== ENCOUNTER 2025-01-22 02:28 | Outpatient (BNV) | payer OTHER, SELFPAY | END 2025-01-22 12:37 | PROVIDERS: Admitting Provider Physician Assistant; Emergency Provider Internal Medicine; PCP Pediatrics; Visit Provider Radiology Diagnostic Radiology | DX: R56.9 Unspecified convulsions (principal) | CPT/HCPCS: 70551 ==

== ENCOUNTER 2025-01-22 02:28 | Outpatient (BNV) | payer OTHER, SELFPAY | END 2025-01-23 02:03 | PROVIDERS: Admitting Provider Physician Assistant; Emergency Provider Internal Medicine; PCP Pediatrics; Visit Provider Internal Medicine Cardiovascular Disease | DX: I45.4 Nonspecific intraventricular block (principal); R94.31 Abnormal electrocardiogram [ECG] [EKG] | CPT/HCPCS: 93010 ==

== ENCOUNTER → 2025-01-22 02:28 | Outpatient (BNV) | payer OTHER, SELFPAY | PROVIDERS: Admitting Provider Physician Assistant; Emergency Provider Internal Medicine; Visit Provider Psychiatry & Neurology Neurology | DX: G93.49 Other encephalopathy (principal) | CPT/HCPCS: 99222 ==

== ENCOUNTER → 2025-01-22 02:28 | Outpatient (BNV) | payer OTHER, SELFPAY | PROVIDERS: Admitting Provider Physician Assistant; Emergency Provider Internal Medicine; Visit Provider Internal Medicine Cardiovascular Disease | DX: R00.0 Tachycardia, unspecified (principal); R94.31 Abnormal electrocardiogram [ECG] [EKG]; Z13.6 Encounter for screening for cardiovascular disorders | CPT/HCPCS: 93010 ==

== ENCOUNTER → 2025-01-22 02:28 | Outpatient (BNV) | payer OTHER, SELFPAY | PROVIDERS: Admitting Provider Physician Assistant; Emergency Provider Internal Medicine; Visit Provider Internal Medicine | DX: G93.40 Encephalopathy, unspecified (principal); T50.901A Poisoning by unspecified drugs, medicaments and biological substances, accidental (unintentional), initial encounter; E87.21 Acute metabolic acidosis; N17.9 Acute kidney failure, unspecified | CPT/HCPCS: 99223; 99239; 99499 ==

== ENCOUNTER 2025-03-29 15:06 | Inpatient (IN) | payer OTHER, SELFPAY ==
--- NOTE | 2025-03-29 15:27 | ED.PSYCH ---
HPI - Psych General Chief Complaint: Psychiatric Symptoms Stated Complaint: SI Time Seen by Provider: 03/29/25 15:25 Source: patient and RN notes reviewed Mode of arrival: ambulatory Limitations: no limitations History of Present Illness ED Provider: Vivi Baker PA-C HPI Narrative: This is a 19-year-old female to male patient, with a hx of PTSD, OCD, borderline personality disorder, chronic SI attempts with frequent psych admissions, previous intentional Benadryl overdose and bulimia, who presented to the ED patient who presents emergency department with concerns of worsening depression and thoughts of suicidal ideation. Patient reports that they were sending text messages to there be HN worker with plans to overdose on Benadryl. Patient arrived to the emergency room with a full bottle of Benadryl as well as a large safe deposit box rental clerk. Patient has had multiple overdoses attempts in the past. They also report that they took 37 tablets of a generic bisacodyl. They state that they often times do this due to their mental illness. A state that they had 1 bowel movement, loose stool. They have no current physical complaints. No chest pain or shortness of breath. No abdominal pain, nausea or vomiting. No light headedness or dizziness. Denies any alcohol use. Denies any illicit drug use. No other complaints or concerns at this time. MD complaint: suicidal ideation and feels depressed Duration: constant History of same: Yes Relieving factors: none Exacerbating factors: none Associated psychiatric symptoms: depression and suicidal ideation Treatments prior to arrival: none If self harm: admits thoughts of self harm and has plan Details of plan: Overdose on Benadryl, use safe deposit box rental clerk. Related Data Home Medications ?Medication ?Instructions ?Recorded ?Confirmed No Known Home Meds 03/29/25 03/29/25 Allergies Allergy/AdvReac Type Severity Reaction Status Date / Time No Known Allergies Allergy Verified 03/29/25 15:51 Review of Systems Review of Systems: Constitutional : No Fever, No Chills ENT/Mouth : No sore throat, No Rhinorrhea Eyes: No Eye Pain, No Swelling, No Redness Cardiovascular : No Chest Pain, No SOB Respiratory : No Cough, No Sputum Gastrointestinal : No Nausea, No Vomiting, No Diarrhea, No abdominal Pain Genitourinary : No Dysuria, No Hematuria Musculoskeletal : No joint pain, No Myalgias, No Joint Swelling Skin : No Skin Lesions Neuro : No Weakness, No Numbness, No Headache All other systems reviewed and are negative Yes all other systems are reviewed and are negative Constitutional: Constitutional: Reports as per [facility] Past Medical History Medical History PTSD (post-traumatic stress disorder) Borderline personality disorder Bulimia OCD (obsessive compulsive disorder) Drug overdose Social History Social History Household Members: Other Housing: Homeless Housing Other:: [employer] ([place]). Do you presently have visiting nurse or other home services: No Alcohol intake: never Comment: 1-[address] Patient Tobacco Use Status: Never used Tobacco Smoked in Last 30 Days: No e-Cigarette/Vaping Use: Never Used Second Hand Smoke Exposure: No Substance Use Type: Marijuana Currently Displaying Signs/Symptoms of Drug Intoxication Withdrawal: No Do you feel safe in your current relationship?: No Current Relationship Is there a partner from a previous relationship who is making you feel unsafe now?: No Are you made to feel afraid or neglected: Yes (pt is homeless) Spiritual Healthcare Practices: n/a Voodoo Healthcare Practices: n/a Cultural Healthcare Practices: n/a Advance Directives: No Advance Directives Information Provided: Yes Do you have thoughts of harming others: None Do you have a plan to hurt others: No Plan Recently lost weight without trying: No How much weight loss: Not applicable Eating poorly because of decreased appetite: No Nutrition screen score: 0 Nutrition Risks: Anorexia Patient : No : No Poor oral hygiene: No service: No Sexual orientation: Decline to Answer Physical Exam Vital Signs: Vital Signs: Last Vital Signs Temp 98.5 F 03/31/25 08:00 Pulse 92 03/31/25 08:00 Resp 16 03/31/25 08:00 BP 123/66 03/31/25 08:00 Pulse Ox 97 03/31/25 08:00 O2 Del Method Room Air 03/31/25 08:00 BMI result Body Mass Index 21.1 Const: General: cooperative, comfortable and no acute distress Orientation/consciousness: patient oriented x3 Limitations: no limitations HEENT: Head: Yes normal to inspection, Yes normocephalic and Yes atraumatic Ears: hearing grossly normal bilaterally General nose exam: Normal external nose present Face and sinus: Yes normal facial exam Mouth: Normal oral and palatal mucosa present, oropharynx normal and moist mucous membranes Throat: Yes posterior oropharynx normal Eyes: General: appearance normal, both eyes and all related structures Eyelids: Yes eyelids normal Conjunctivae: conjunctivae normal Sclerae: sclerae normal Pupils: Equal, round and reactive pupils present EOM: EOMs intact bilaterally Neck: Neck: Yes normal visual inspection, Yes full ROM and Yes no lymphadenopathy Lymphatic: no lymphadenopathy noted Chest: Chest palpation & inspection: normal inspection of the chest Resp: Effort & Inspection: normal respiratory effort and able to speak in complete sentences Auscultation: clear to auscultation bilaterally, no crackles, no rales, no rhonchi and no wheezes Cardio: Rate: regular rate Rhythm: regular rhythm Heart sounds: S1 normal heart sound present and S2 normal heart sound present GI: Inspection: Yes normal to inspection Skin: General skin exam: no rashes or lesions noted Trauma: no lacerations or abrasions Wounds: no wounds Neuro: General: patient oriented x3 and moves all extremities Cranial nerves: Yes Equal, round and reactive pupils present Extrem: General: Yes normal to inspection Right upper extremity: normal to inspection Left upper extremity: normal to inspection Right lower extremity: normal to inspection Left lower extremity: normal to inspection Psych: Appearance: disheveled Mental Status: mental status grossly normal Speech and movement: Normal speech and movement present Affect: Blunted affect present Attitude: Guarded attititude/behavior present and Avoids eye contact (attititude/behavior) Thought process: Normal thought process present Thought content: Suicidality present and Depressive thoughts present Insight: Poor insight present (Psych) Judgement: Poor judgement present (Psych) Course Course Course Narrative: Received this patient on sign out from JERI Baker pending poison control recommendations. They recommended evaluating electrolytes, EKG, Tylenol level, salicyclate level, and supportive care. 1939 Lucille Ross PA-C ---> Patient refused EKG + PO Potassium. After an extensive conversation the patient agreed to the powder packet of potassium at the bed side for them to drink on occasion but continued to refuse everything else. [id number] Lucille Ross PA-C --> Patient provided EKG that was normal and drank the PO potassium as ordered. Repeat BMP ordered for 199 to confirm potassium correction. Patient is medically cleared. Reevaluation(s) Reevaluation #1: Time: 07:19 Date: 03/30/25 Provider: Luciana Garcia, DO Patient in physician observation for psychiatric evaluation.? No acute events reported overnight. No current complaints. VS stable.? Pending CARE team evaluation. Will continue to monitor. Reevaluation #2: physician observation ended admitted inpatient 03/30/25 [place] 113pm Medications Administered Generic Name Dose Route Start Last Admin Trade Name Freq PRN Reason Stop Dose Admin Nicotine Polacrilex 4 mg 03/30/25 12:17 03/31/25 16:47 Nicotine Polacrilex 2 Mg Gum BUCCAL 4 mg Q2H PRN Administration Nicotine Cravings Discontinued Medications Generic Name Dose Route Start Last Admin Trade Name Freq PRN Reason Stop Dose Admin Potassium Chloride 60 meq 03/29/25 19:39 03/29/25 20:06 Potassium Chloride Packet 20 Meq Packet PO 03/29/25 19:40 60 meq ONCE ONE Administration Medical Decision Making Medical Decision Making MDM Narrative: This is a 19-year-old female to male patient, with a hx of PTSD, OCD, borderline personality disorder, chronic SI attempts with frequent psych admissions, previous intentional Benadryl overdose and bulimia, who presented to the ED patient who presents emergency department with concerns of worsening depression and thoughts of suicidal ideation. On arrival, blood pressure elevated at 140/88, pulse 108. Patient is anxious appearing, guarded. Tachycardia likely secondary to anxiety. Upon questioning, they admit to taking 37 tablets of bisacodyl. They state that they often times do this due to their eating disorder. Had only 1 bowel movement today. No bloody or black stool. 5:50 PM 03/29/2025 (Vivi Baker PA-C): Labs returned, she has no leukocytosis, stable H&H, chemistry revealing hypokalemia at 2.9, other electrolytes within normal limits. Discussed with my attending physician, will administer potassium 60mEq, check EKG. Given apparent excessive use of laxative, will reach out to the poison control to ensure no other additional interventions were monitoring is required. 5:56 PM 03/29/2025 (Vivi Baker PA-C): Nurse called over to [facility] and states that this is not true. Stating that they asked multiple times if they overuse any medications and they said no. Patient admits to taking around 10 tablets of laxative. Advised nursing staff to reach out to the poison control. They recommend monitoring electrolytes, EKG, and supportive care. Sign-out given to my colleague, Lucille Ross pending psych eval, EKG, re-eval and monitoring. Differential Diagnosis Differential Diagnoses: The differential diagnosis associated with the presentation includes Depression, anxiety, suicidal ideation, overdose Admission/Observation Consideration of admission/observation: Escalation of care including admission/observation considered Lab Data [facility] Lab Attestation statement: I reviewed the patient's lab results. See MDM 03/29/25 16:22 03/30/25 03:21 Labs: Lab Results 03/29/25 03/29/25 03/29/25 Range/Units 16:22 20:12 20:13 WBC 6.1 (4.8-10.8) X10*3/uL RBC 4.43 (4.20-5.50) X10*6/uL Hgb 13.4 (12.0-16.0) g/dl Hct 39.0 (37.0-47.0) % MCV 88.0 (80.0-98.0) fL MCH 30.2 (27.0-33.0) pg MCHC 34.4 (31.0-35.0) g/dl RDW 12.5 (11.0-16.0) % Plt Count 240 (160-400) X10*3/uL MPV 10.9 (9.4-12.3) fL Immature Gran % (Auto) 0.2 (0.0-0.4) % Neut % (Auto) 67.8 (45-73) % Lymph % (Auto) 27.3 (20-40) % [place] % (Auto) 4.0 (2-11) % Eos % (Auto) 0.0 (0-4) % Baso % (Auto) 0.7 (0-2) % Lymph # (Auto) 1.7 (1.2-4.9) X10*3/uL [place] # (Auto) 0.2 (0.1-1.2) X10*3/uL Eos # (Auto) 0.0 (0.0-0.4) X10*3/uL Baso # (Auto) 0.0 (0.0-0.2) X10*3/uL Abs Immat Gran (auto) 0.01 (0.00-0.03) X10*3/uL Absolute Neuts (auto) 4.1 (2.0-8.3) x10*3/uL Absolute Nucleated RBC 0.000 (0.0-0.012) X10*3/uL Nucleated RBC % (auto) 0.0 (0.0-0.2) /100WBC Sodium 137 (135-145) mmol/L Potassium 2.9 L* (3.3-5.1) mmol/L Chloride 105 (96-108) mmol/L Carbon Dioxide 25 (22-29) mmol/L Anion Gap 10 L (12-20) BUN 11 (9-16) mg/dL Creatinine 0.69 (0.5-1.4) mg/dL Estim Creat Clear Calc 126.7 Estimated GFR > 60 Random Glucose 75 (60-115) mg/dL Calcium 9.5 D (8.4-10.2) mg/dL Phosphorus 3.2 (2.7-4.5) mg/dL Magnesium 1.8 (1.6-2.6) mg/dL Total Bilirubin 0.7 (0.0-1.0) mg/dL AST 25 (5-31) U/L ALT 18 (0-31) U/L Alkaline Phosphatase 61 (39-117) U/L Total Protein 7.4 (6.5-8.0) g/dL Albumin 4.5 (3.5-5.0) g/dL Urine Color Dark Yellow Urine Appearance Clear Urine pH 5.5 (5.0-9.0) Ur Specific [place] >= 1.030 H (1.005-1.025) Urine Protein Trace (Neg-Trace) mg/dL Urine Glucose (UA) Negative (Negative) mg/dL Urine Ketones 40 (Negative) mg/dL Urine Blood Negative (Negative) Urine Nitrite Negative (Negative) Ur Leukocyte Esterase Trace H (Negative) Urine RBC 0-2 (0-2) /HPF Urine WBC 0-5 (0-5) /HPF Ur Squamous Epith Cells 0-2 (0-2) /HPF Calcium Oxalate Crystal Present Urine Bacteria Trace (None Seen) Hyaline Casts 0-2 (0-2) /LPF Urine Test NEGATIVE (NEGATIVE) Salicylates < 5.0 L (15-30) mg/dL Urine Opiates Screen Not Detected (Not Detect) Ur Buprenorphine Scrn Not Detected (Not Detect) ng/mL Ur Oxycodone Screen Not Detected (Not Detect) ng/mL Urine Methadone Screen Not Detected (Not Detect) ng/mL Urine Fentanyl Screen Not Detected (Not Detect) Acetaminophen < 3 (<30) mcg/mL Ur Barbiturates Screen Not Detected (Not Detect) Ur Phencyclidine Scrn Not Detected (Not Detect) Ur Amphetamines Screen Not Detected (Not Detect) U Benzodiazepines Scrn Not Detected (Not Detect) Urine Cocaine Screen Not Detected (Not Detect) U Marijuana (THC) Screen POSITIVE H (Not Detect) Ethyl Alcohol < 10 mg/dL COVID-19 (LEDY) Negative (Negative) COVID-19 Clin Com See Note 03/30/25 Range/Units 03:21 WBC (4.8-10.8) X10*3/uL RBC (4.20-5.50) X10*6/uL Hgb (12.0-16.0) g/dl Hct (37.0-47.0) % MCV (80.0-98.0) fL MCH (27.0-33.0) pg MCHC (31.0-35.0) g/dl RDW (11.0-16.0) % Plt Count (160-400) X10*3/uL MPV (9.4-12.3) fL Immature Gran % (Auto) (0.0-0.4) % Neut % (Auto) (45-73) % Lymph % (Auto) (20-40) % [place] % (Auto) (2-11) % Eos % (Auto) (0-4) % Baso % (Auto) (0-2) % Lymph # (Auto) (1.2-4.9) X10*3/uL [place] # (Auto) (0.1-1.2) X10*3/uL Eos # (Auto) (0.0-0.4) X10*3/uL Baso # (Auto) (0.0-0.2) X10*3/uL Abs Immat Gran (auto) (0.00-0.03) X10*3/uL Absolute Neuts (auto) (2.0-8.3) x10*3/uL Absolute Nucleated RBC (0.0-0.012) X10*3/uL Nucleated RBC % (auto) (0.0-0.2) /100WBC Sodium 141 (135-145) mmol/L Potassium 3.4 (3.3-5.1) mmol/L Chloride 110 H (96-108) mmol/L Carbon Dioxide 21 L (22-29) mmol/L Anion Gap 13 (12-20) BUN 11 (9-16) mg/dL Creatinine 0.60 (0.5-1.4) mg/dL Estim Creat Clear Calc 145.8 Estimated GFR > 60 Random Glucose 84 (60-115) mg/dL Calcium 9.0 (8.4-10.2) mg/dL Phosphorus (2.7-4.5) mg/dL Magnesium (1.6-2.6) mg/dL Total Bilirubin (0.0-1.0) mg/dL AST (5-31) U/L ALT (0-31) U/L Alkaline Phosphatase (39-117) U/L Total Protein (6.5-8.0) g/dL Albumin (3.5-5.0) g/dL Urine Color Urine Appearance Urine pH (5.0-9.0) Ur Specific [place] (1.005-1.025) Urine Protein (Neg-Trace) mg/dL Urine Glucose (UA) (Negative) mg/dL Urine Ketones (Negative) mg/dL Urine Blood (Negative) Urine Nitrite (Negative) Ur Leukocyte Esterase (Negative) Urine RBC (0-2) /HPF Urine WBC (0-5) /HPF Ur Squamous Epith Cells (0-2) /HPF Calcium Oxalate Crystal Urine Bacteria (None Seen) Hyaline Casts (0-2) /LPF Urine Test (NEGATIVE) Salicylates (15-30) mg/dL Urine Opiates Screen (Not Detect) Ur Buprenorphine Scrn (Not Detect) ng/mL Ur Oxycodone Screen (Not Detect) ng/mL Urine Methadone Screen (Not Detect) ng/mL Urine Fentanyl Screen (Not Detect) Acetaminophen (<30) mcg/mL Ur Barbiturates Screen (Not Detect) Ur Phencyclidine Scrn (Not Detect) Ur Amphetamines Screen (Not Detect) U Benzodiazepines Scrn (Not Detect) Urine Cocaine Screen (Not Detect) U Marijuana (THC) Screen (Not Detect) Ethyl Alcohol mg/dL COVID-19 (LEDY) (Negative) COVID-19 Clin Com Discharge Plan Discharge Clinical Impression: Suicidal ideation Patient Disposition: Admitted As Inpatient Interventions: Admission Worksheet (ED) Last Done: 03/30/25 13:17 Discharge Date/Time: 03/30/25 13:19
[2025-03-29 15:46] VITALS: BP 140/88; PULSE 108; RESP 18; TEMP 36.6; O2SAT 95; BMI 21.1
[2025-03-29 15:53] VITALS: BP 140/88; PULSE 108; RESP 18; TEMP 36.6
--- NOTE | 2025-03-29 16:03 | MHC.EDTECH ---
Patient would not provide urine sample during ticket dispenser changer. Urine cup at bedside patient aware a sample is required. Rn aware.
[2025-03-29 16:27] LABS: MANUAL DIFF FLAG NO
[2025-03-29 16:30] LABS: Hematocrit 39.0 % (37.0-47.0); Hemoglobin 13.4 g/dl (12.0-16.0); Imm Gran Abs Auto 0.01 X10*3/uL (0.00-0.03); Imm Gran Pct Auto 0.2 % (0.0-0.4); Lymphocytes Absolute Auto 1.7 X10*3/uL (1.2-4.9); Mean Corpuscular HGB Conc 34.4 g/dl (31.0-35.0); Mean Corpuscular Hemoglobin 30.2 pg (27.0-33.0); Mean Corpuscular Volume 88.0 fL (80.0-98.0); NRBC Abs Auto 0.000 X10*3/uL (0.0-0.012); NRBC Pct Auto 0.0 /100WBC (0.0-0.2); Platelet Count 240 X10*3/uL (160-400); Red Blood Count 4.43 X10*6/uL (4.20-5.50); White Blood Count 6.1 X10*3/uL (4.8-10.8)
[2025-03-29 17:03] LABS: Alanine Aminotransferase 18 U/L (0-31); Albumin Level 4.5 g/dL (3.5-5.0); Alkaline Phosphatase 61 U/L (39-117); Anion Gap 10 (12-20); Aspartate Amino Transferase 25 U/L (5-31); Blood Urea Nitrogen 11 mg/dL (9-16); Calcium 9.5 mg/dL (8.4-10.2); Carbon Dioxide 25 mmol/L (22-29); Chloride 105 mmol/L (96-108); Creatinine Clr Calc Pharmacy 126.7; Estimated Glomerular Filt Rate > 60; Potassium 2.9 mmol/L (3.3-5.1); Sodium 137 mmol/L (135-145); Total Protein 7.4 g/dL (6.5-8.0)
--- NOTE | 2025-03-29 17:10 | ECG_ITS ---
Test Reason : MED CLEAR Blood Pressure : */* mmHG Vent. Rate : 63 BPM Atrial Rate : 63 BPM P-R Int : 150 ms QRS Dur : 104 ms QT Int : 432 ms P-R-T Axes : 14 75 60 degrees QTcB Int : 442 ms Normal sinus rhythm Normal ECG When compared with ECG of 23-Jan-2025 06:56, Vent. rate has decreased by 32 bpm Referred By: Vivi Baker Electronically Signed By: COLT MOSELEY MD
[2025-03-29 17:25] LABS: Acetaminophen LAB < 3 mcg/mL (<30); Salicylate < 5.0 mg/dL (15-30)
--- NOTE | 2025-03-29 18:34 | PC.NURSE ---
Poison control called at 1830 after Patient informed staff of a large amount of Dulcolax tablets that she took at 10am. Pt has changed her story of the amount of ingested tablets multiple times. Pt stated to this automobile and property underwriter it was 20 pills and that she does this on a regular basis to loose weight. Per poison control Pt to have Electrolytes, EKG, Tylenol, salicylate level and supportive care. Provider made aware. Pt is curretnly refusing her Potassium replacement, and eating dinner. she had been self harming by punching her head and pulling her hair. [employer] automobile and property underwriter talked with her for 15 min providing support and understanding. Pt is currently laying down and resting.
--- OUTSIDE RECORDS SUMMARY | 2025-03-29 18:35 | XMS_ITS | Clinical Summary ---
Author Organization [facility] Address [address] [facility] [address] [place] [address] Phone Care Team Providers Care Balling Machine Operator Name Role Phone Christina Colunga MD Primary Care Provider Allergies No known active allergies Medications * This document contains information received from the source organization and may not represent a complete record from that organization. polyethylene glycol (MIRALAX) 17 gram packet Take 17 g by mouth daily. 30 packet 12/13/19 Active Additional Information Patient taking differently:17 g Oral2 times daily, Reported on 06/05/2024 acetaminophen (TYLENOL) 325 mg tablet Take 1 tablet (325 mg total) by mouth every 6 (six) hours as needed for mild pain. 30 tablet 1 12/13/19 Active magnesium hydroxide (MOM) 400 mg/5 mL Susp Take 30 mL (2,400 mg total) by mouth nightly at bedtime as needed. 354 mL 1 12/13/19 Active chlorproMAZINE (THORAZINE) 100 MG tablet Take 1 tablet (100 mg total) by mouth daily as needed (severe anxiety not responding to benadryl or Ativan). 30 tablet 12/13/19 Active Additional Information Patient taking differently: 50 mgOral Daily as needed, severe anxiety not responding to benadryl or Ativan, Reported on 06/05/2024 chlorproMAZINE (THORAZINE) 50 MG tablet Take 50 mg by mouth 3 (three) times a day. At 8am, 12pm, 8pm Active chlorproMAZINE (THORAZINE) 100 MG tablet Take 100 mg by mouth daily. At 5pm Active gabapentin (NEURONTIN) 300 MG capsule Take 300 mg by mouth 3 (three) times a day. 8am, 12pm, 3pm Active gabapentin (NEURONTIN) 600 MG tablet Take 600 mg by mouth daily. 8pm Active clomiPRAMINE (ANAFRANIL) 75 MG capsule Take 150 mg by mouth daily. Active diphenhydrAMIN E (BENADRYL) 50 MG capsule Take 50 mg by mouth nightly at bedtime as needed for itching. Active ibuprofen (ADVIL,MOTRIN) 600 MG tablet Take 600 mg by mouth every 6 (six) hours as needed for pain (specific location in comments). Active ondansetron (ZOFRAN) 4 MG tablet Take 4 mg by mouth every 8 (eight) hours as needed for nausea. Active lithium carbonate 600 mg capsule Take 600 mg by mouth 3 (three) times a day with meals. Discontinued QUEtiapine (SEROQUEL) 100 MG tablet Take 200 mg by mouth nightly at bedtime. Discontinued lurasidone (LATUDA) 20 mg Tab Take 20 mg by mouth every morning. Discontinued Active Problems Problem Noted Date Diagnosed Date Alteration in nutrition associated with tube fee ding 06/06/2024 Assessment & Plan (06/08/2024 8:35 AM EST): Patient with history of feeding disorder requiring NGT feeds and currently is inpatient at [place]. Will recheck electrolytes this afternoon given feeds have been help. Plan to resume home tube feeds regimen when complete with bowel prep and passage of battery. BMP this morning is stable. [] restart home regimen once battery passes Home diet: Ensure plus 54 ounces per day, run at 100cc/hour Pedialyte offer 8 ounces QID Dairy free vegetarian diet Assessment & Plan (06/07/2024 10:21 AM EST): Patient with history of feeding disorder requiring NGT feeds and currently is inpatient at [place]. Will recheck electrolytes this afternoon given feeds have been help. Plan to resume home tube feeds regimen when complete with bowel prep and passage of battery. BMP this morning is stable. [] restart home regimen once battery passes Home diet: Ensure plus 54 ounces per day, run at 100cc/hour Pedialyte offer 8 ounces QID Dairy free vegetarian diet Assessment & Plan (06/06/2024 11:37 AM EST): Patient with history of feeding disorder requiring NGT feeds and currently is inpatient at [place]. Will recheck electrolytes this afternoon given feeds have been help. Plan to resume home tube feeds regimen when complete with bowel prep and passage of battery. [] BMP, mg, phos this afternoon around 2pm [] restart home regimen once battery passes Home diet: Ensure plus 54 ounces per day, run at 100cc/hour Pedialyte offer 8 ounces QID Dairy free vegetarian diet Swallowed foreign body, initial encounter 2023 Assessment & Plan (06/08/2024 11:20 AM EST): Florin Castro is a 18 y.o. non-binary (thye/them) adult with OCD, mood disorder, self-harm, history of previous foreign body ingestions, who is currently at [place] inpatient level of care for feeding disorder requiring NGT feeds, who was admitted for observation following ingestion of 4 button batteries (s/p endoscopic removal of 3 batteries, 4th in the ascending colon). 4th battery most recently in the ascending colon on imaging with minimal movement despite having several liquid bowel movements. Esophagus is the highest risk for electrical soto due to acidity and lumen size, less likely to suffer injury when batteries are more distal. Several esophageal ulcers noted on endoscopy. Given minimal movement in >48hrs, plan to undergo colonoscopy with GI today. Reassuringly, there is no signs of obstruction or perforation on imaging and they remain stable and comfortable. Encouraged lying on their left side to help natural progression. - GI consulted, s/p endoscopy -> colonoscopy scheduled for 12:15 today - Colorectal surgery consulted, recommendations as below - s/p Golytely and mag citrate bowel prep to encourage progression of the battery, via NGT at home rate (100cc/hour), - Serial abdominal exams - KUB 06/08 morning: No progression of battery - continue protonix 40mg BID (plan for omeprazole 40mg BID for 2wks) - continue carafate 1g QID (plan for 2wks) - mIVF Assessment & Plan (06/07/2024 10:21 AM EST): Florin Castro is a 18 y.o. non-binary (thye/them) adult with OCD, mood disorder, self-harm, history of previous foreign body ingestions, who is currently at [place] inpatient level of care for feeding disorder requiring NGT feeds, who was admitted for observation following ingestion of 4 button batteries (s/p endoscopic removal of 3 batteries, 4th in the ascending colon). 4th battery most recently in the ascending colon on imaging with minimal movement but they are starting to have bowel movement. Esophagus is the highest risk for electrical soto due to acidity and lumen size, less likely to suffer injury when batteries are more distal. Given minimal movement in >24hrs, likely will undergo colonoscopy with GI tomorrow. Will repeat KUB in the morning to monitor progress and continue serial exams. Reassuringly, there is no signs of obstruction or perforation on imaging and they remain stable and comfortable. Encouraged lying on their left side to help natural progression. - GI consulted, s/p endoscopy - Colorectal surgery consulted, recommendations as below - Golytely and mag citrate bowel prep to encourage progression of the battery, via NGT at home rate (100cc/hour), - Serial abdominal exams - next KUB 06/08 morning - continue protonix 40mg BID (plan for omeprazole 40mg BID for 2wks) - continue carafate 1g QID (plan for 2wks) Assessment & Plan (06/06/2024 11:36 AM EST): Florin Castro is a 18 y.o. non-binary (thye/them) adult with OCD, mood disorder, self-harm, history of previous foreign body ingestions, who is currently at [place] inpatient level of care for feeding disorder requiring NGT feeds, who was admitted for observation following ingestion of 4 button batteries (s/p endoscopic removal of 3 batteries, 4th in the ascending colon). 4th battery most recently in the ascending colon on imaging with minimal movement but they are starting to have bowel movement. Esophagus is the highest risk for electrical soto due to acidity and lumen size, less likely to suffer injury when batteries are more distal. Will continue to monitor with serial imaging and exams. - GI consulted, s/p endoscopy - Colorectal surgery consulted, recommendations as below - Golytely bowel prep to encourage progression of the battery, via NGT at home rate (100cc/hour), - Start mag citrate for bowel regimen - Serial abdominal exams - Serial abdominal x-rays q6h abdominal xrays or sooner with any clinical change or change in exam (next around 230pm) - Start protonix 40mg BID (plan for omeprazole 40mg BID for 2wks) - Start carafate 1g QID (plan for 2wks) Assessment & Plan (06/05/2024 8:39 PM EST): Florin Castro is a 18 y.o. non-binary (thye/them) adult with OCD, mood disorder, self-harm, history of previous foreign body ingestions, who is currently at [facility] level of care for feeding disorder requiring NGT feeds, who was admitted for observation following ingestion of 4 button batteries (s/p endoscopic removal of 3 batteries, 4th in the ascending colon). 4th battery most recently in the ascending colon on imaging. Esophagus is the highest risk for electrical soto due to acidity and lumen size, less likely to suffer injury when batteries are more distal. - GI consulted, s/p endoscopy - Colorectal surgery consulted, recommendations as below - Golytely bowel prep to encourage progression of the battery, via NGT at home rate (100cc/hour) - Serial abdominal exams - Serial abdominal x-rays q6h abdominal xrays or sooner with any clinical change or change in exam Mood disorder 12/01/2021 Assessment & Plan (06/08/2024 8:35 AM EST): Continue home medications Section 12 Sitter Assessment & Plan (06/07/2024 10:21 AM EST): Continue home medications Section 12 Sitter Assessment & Plan (06/06/2024 11:36 AM EST): Continue home medications Section 12 Sitter Assessment & Plan (06/05/2024 8:39 PM EST): Continue home medications Section 12 Sitter PTSD (post-traumatic stress disorder) 08/15/2021 Depression 12/29/2019 Foreign body in digestive system 12/29/2019 Resolved Problems Problem Noted Date Diagnosed Date Resolved Date Gastric foreign body 12/29/2019 020 Immunizations Immunization Administration Dates Next Due Influenza Quadrivalent Prese rvative Free IM 08/29/2021(Deferred: Patient Refused) Social History Tobacco Use Types Packs/Day Years Used Date Smoking Tobacco: Some Days Cigarettes Smokeless Tobacco: Current Tobacco Cessation:Ready to Q uit: Not Asked; Counseling Given: Not Answered Comments:vape Alcohol Use Standard Drinks/Week Comments Not Currently 0 (1 standard drink = 0.6 oz pur e alcohol) Education Answer Date Recorded Are you interested in more education? Not on demetrio e 10/19/2022 Are you concerned about learning? Not on file 10/19/2022 No 10/19/2022 No 10/19/2022 Food Answer Date Recorded Within the past 6 months we worried whether our food would run out before we got money to buy more. Never True 06/05/2024 Within the past 6 months the food we bought just didn't last and we didn't have enough money to get more. Never True Residential Stability Answer Date Recor ded What is your housing situation today? I have uche sing 06/05/2024 How many times have you move d in the past 12 months? Zero (I did not move) 06/05/2024 Paying for Meds Answer Date Recorded Do you have trouble paying for medicines? No 06/05/2024 Paying Utility Bills Answer Date Record ed Do you have trouble paying your heating or elect ricity bill? No 06/05/2024 Transportation Answer Date Recorded Has the lack of transportati on kept you from medical appointments or from getting medications? No 06/05/2024 Digital Access Answer Date Recorded No 06/05/2024 Yes 06/05/2024 Do you have reliable internet access at home? Ye s 06/05/2024 Do you have a device (e.g., phone, tablet, computer) with a working camera? Yes 06/05/2024 Intimate Partner Violence Answer Date R ecorded Are you denied basic needs s uch as food, clothing, or medical care? No 06/05/2024 In the past 12 months have y ou been in a relationship with a person who hurts, threatens, or tries to control you? No 06/05/2024 Are you denied basic needs s uch as food, clothing, or medical care? No 06/05/2024 In the past 12 months have y ou been in a relationship with a person who hurts, threatens, or tries to control you? No 06/05/2024 Comments No Sex and Gender Information Value Date Recorded Sex Assigned at Unknown 06/05/2024 4:09 AM EST Legal Sex Female 5:53 PM EDT Gender Identity Non-binary 02/26/2022 6:17 PM EDT Sexual Orientation Asexual 02/26/2022 6: 17 PM EDT Last Filed Vital Signs Vital Sign Reading Time Taken Comments Blood Pressure 87/58 06/08/2024 3:19 PM EST Pulse 96 06/08/2024 3:19 PM EST Temperature 36.8 C (98.3 F) 06/08/2024 3:19 PM EST Respiratory Rate 20 06/08/2024 1:01 PM EST Oxygen Saturation 95% 06/08/2024 3:19 PM EST Inhaled Oxygen Concentration - - Weight 95 kg (209 lb 7 oz) 06/07/2024 2:00 PM ES T Height 170.2 cm (5' 7 ) 06/07/2024 2:00 PM EST Body Mass Index 32.8 06/07/2024 2:00 PM EST Body Mass Index Percentile 96.03% 06/07/2024 2:0 0 PM EST Growth Chart: [facility] (Girls, 2- 20 Years) Plan of Treatment Health Maintenance Due Date Last Done Comments DEVELOPMENTAL/BEHAVIORAL SCREENING (PHQ, PSC, or SWYC) 2008 DEPRESSION SCREENING 2017 HPV VACCINES (1 - 3-dose series) 2020 MENINGOCOCCAL VACCINES (B) ( 1 of 2 - Standard) 2021 ADOLESCENT UNIVERSAL LIPID SCREENING 2022 08/16/2021 HEPATITIS C SCREENING 2023 HIV ONE-TIME SCREENING (18-6 5 YEARS) 2023 HEPATITIS B VACCINES (1 of 3 - 19+ 3-dose series) 2024 PNEUMOCOCCAL VACCINES (0-49 years) (1 of 2 - PCV) 2024 INFLUENZA VACCINE (#1) 2025 COVID-19 VACCINE (2 - 2024-2 6 season) 2025 09/14/2021 BMI ASSESSMENT 06/07/2025 06/07/2024 SMOKING Hx and SMOKELESS TOBACCO SCREENING 06/08/2025 06/08/2024 COMBINED DTaP,Tdap,Td (4 - T d or Tdap) 11/01/2026 11/01/2016, 07/30/2011, 11/14/2006 MMR VACCINES Completed 07/30/2011, 08/15/2006, 08/15/2006 VARICELLA VACCINES Completed 08/19/2011, 07/30/2011, 08/15/2006 HEPATITIS A VACCINES Aged Out No long er eligible based on patient's age to complete this topic HIB VACCINES Aged Out No longer eligi ble based on patient's age to complete this topic MENINGOCOCCAL VACCINES (ACWY) Aged Out No longer eligible based on patient's age to complete this topic Medical Devices Not on file Procedures Procedure Name Priority Date/Time Associated Diagnosis Comments LIPID PANEL Routine 08/16/2021 6:54 AM EST from Last 3 Months or Most Recently Relevant to Health Maintenance Results * (ABNORMAL) Lipid panel (08/16/2021 6:54 AM EST) HDL 28 mg/dL [facility] Comment: Interpretation <40 mg/dL: Low HDL cholesterol (major risk factor for CHD) Greater than or equal to 60 mg/dL: High HDL cholesterol ( negative risk factor for CHD) HDL - cholesterol is affected by a number of factors, e.g. smoking, excerise, hormones, sex and age. CHOLESTEROL 134 0 - 169 mg/dL [facility] Comment: Pediatric Reference Ranges for 2 to 18 years Acceptable: Less than 170 mg/dL Borderline: 170 - 199 mg/dL High: Greater than or equal to 200 mg/dL TRIGLYCERIDES 81 30 - 160 mg/dL [facility] LDL 90 50 - 129 mg/dL [facility] Comment: LDL levels in terms of risk for coronary heart disease: <100 mg/dL: Optimal 100-129 mg/dL: Near or above optimal 130-159 mg/dL: Borderline high 160-189 mg/dL: High >190 mg/dL: Very High CARDIAC RISK RATIO 4.8(H) 3.3 - 4.4 [facility] [employer] Blood 08/16/2021 6:54 AM EST 08/16/2021 7:26 AM EST us Isha Weldon MD LAB BLOOD ORDERABLES Final Re sult [facility] [address] [place] [address] from Last 3 Months or Most Recently Relevant to Health Maintenance Insurance C3 ACO C3 ACO C3 ACO C3 ACO C3 ACO C3 ACO C3 ACO C3 ACO C3 ACO [facility] C3 ACO [facility] C3 ACO [facility] C3 ACO [facility] C3 ACO [facility] C3 ACO [facility] C3 ACO [facility] C3 ACO [facility] C3 ACO [facility] C3 ACO [facility] C3 ACO Advance Directives For more information, please contact: [phone] (9AM - 5PM [facility], Saturday-Saturday) * Full Code (Latest Code Status on File) Date Activated Date Inactivated Comments 12/01/2021 12:55 PM Question Answer Comments Code Status Confirmed With: Patient * Full Code (Confirmed) Date Activated Date Inactivated Comments 12/29/2019 11:49 PM 12/01/2021 12:55 PM Question Answer Comments Code Status Confirmed With: Other (specify below ) Code Status Communicated To: Inpatient Attending Code Discussion Comments: patient is a minor. Fu ll code is presumed Care Teams Balling Machine Operator Relationship Specialty Start Date End Date Christina Colunga MD [address] [place] [id number] PCP - General Pediatrics 01/20/22 Additional Source Comments The information contained in this document represents components of the legal health record. It is not the complete legal health record.[facility]
--- OUTSIDE RECORDS SUMMARY | 2025-03-29 18:35 | XMS_ITS | Encounter Summary ---
Author Organization [facility] Address [address] [facility] [address] [place] [address] Phone Care Team Providers Care Systems Security Analyst Name Role Phone Christina Colunga MD Primary Care Provider Christina Colunga MD Primary Care Provider [phone] Encounter Details Date Type Department Care Team (Latest Contact Info) Description 04/25/2021 Transcribe Orders Virtual Department [address] [place] [address] Christina Colunga MD [address] [place] [address] Foreign body of alimentary tract, part unspecified, initial encounter (Primary Dx) Social History Tobacco Use Types Packs/Day Years Used Date Smoking Tobacco: Never Assessed Comments Unknown Sex and Gender Information Value Date Recorded Sex Assigned at Unknown 06/05/2024 4:09 AM EST Legal Sex Female 5:53 PM EDT Gender Identity Non-binary 02/26/2022 6:17 PM EDT Sexual Orientation Asexual 02/26/2022 6: 17 PM EDT documented as of this encounter Plan of Treatment Not on file documented as of this encounter Results * XR ABDOMEN 1 VIEW (04/25/2021 2:28 PM EDT) Anatomical Region Laterality Modality Abdomen Computed Radiogr aphy 04/25/2021 2:43 PM EDT Impressions 04/25/2021 2:45 PM EDT Interval passage of the AA batteries. No acute findings. Narrative 04/25/2021 2:45 PM EDT COMPARISON: 04/23/2021. ABDOMEN RADIOGRAPH FINDINGS: Views: 3. Lines/tubes/devices: None. Lung Bases/Heart: Unremarkable. Bowel: Unremarkable. Soft Tissues: The radiopaque foreign bodies are no longer present. Bones: Unremarkable. Procedure Note Jackson Mares MD - 04/25/2021 COMPARISON: 04/23/2021. ABDOMEN RADIOGRAPH FINDINGS: Views: 3. Lines/tubes/devices: None. Lung Bases/Heart: Unremarkable. Bowel: Unremarkable. Soft Tissues: The radiopaque foreign bodies are no longer present. Bones: Unremarkable. IMPRESSION: Interval passage of the AA batteries. No acute findings. us Christina Maurer MD IMG XR ABDOMEN Final Resul t documented in this encounter Visit Diagnoses Diagnosis Foreign body of alimentary tract, part unspecified, initial encounter- Primary Foreign body of alimentary tract, part unspecified, initial encounter documented in this encounter Care Teams Systems Security Analyst Relationship Specialty Start Date End Date Christina Colunga MD [address] [place] [address] PCP - General Pediatrics 12/29/19 01/19/22 Christina Colunga MD [address] [place] [address] PCP - General Pediatrics 01/20/22 documented as of this encounter Additional Source Comments The information contained in this document represents components of the legal health record. It is not the complete legal health record.[facility]
--- OUTSIDE RECORDS SUMMARY | 2025-03-29 18:35 | XMS_ITS | Encounter Summary ---
Author Organization [employer] Address [address] [address] [place] [address] Care Team Providers Care Show Card Letterer Name Role Phone Christina Colunga MD Primary Care Provider [phone] Reason for Visit * Reason Onset Date Comments Hospital Follow-up 06/29/2024 Encounter Details Date Type Department Care Team ([facility] st Contact Info) Description 06/29/2024 Telephone [facility] MEDICINE [address] [place] [address] Christina Colunga MD [address] [place] [address] Hospital Follow-up Social History Tobacco Use Types [...] from [facility] requesting a HDF appt. Hospital: [place], [place] Date of admission: 06/08/2024 Discharge date: 06/30/2024 Diagnosed: Anorexia *Send message to [facility] Clinical Care Coordinators documented in this encounter Plan of Treatment Not on file documented as of this encounter Visit Diagnoses Not on filedocumented in this encounter Additional Health Concerns Assessment Noted Time PHQ-9 Depression Total Score: 23 023 2:21 PM EDT documented as of this encounter Care Teams Show Card Letterer Relationship Specialty Start Date End Date Christina Colunga MD [address] [place] [address] PCP - General Pediatrics 03/07/15 documented as of this encounter
--- OUTSIDE RECORDS SUMMARY | 2025-03-29 18:35 | XMS_ITS | Clinical Summary ---
Author Organization [employer] Address [address] [facility] [address] [place] [address] Care Team Providers Care Commanding Officer Traffic Division Name Role Phone Christina Colunga MD Primary [...] MOUTH 1 TO 2 TIMES DAILY NEEDED 4 Active gabapentin (Neurontin) 300 MG capsule Take 300 mg by mouth 3 times daily. 4 Active ondansetron (Zofran) 4 MG tablet Take 1 tablet by mouth every 8 (eight) hours if needed for nausea or vomiting. 4 Active chlorproMAZINE (Thorazine) 50 MG tablet Take 50 mg by mouth 3 times daily. And 100 mg once daily and an additional 50 mg once daily as needed 4 Active pantoprazole (ProtoNix) 40 MG EC tablet Take 1 tablet by mouth 2 times daily. Do not crush, chew, or split. Active chlorproMAZINE (Thorazine) 25 MG tablet Take 1 tablet by mouth 2 times daily. Active medroxyPROGESTERo ne (Depo-Provera) 150 MG/ML injectionIndicati ons:Encounter for surveillance of injectable contraceptive Inject 1 mL (150 mg) into the muscle every 3 (three) months. 1 mL 3 Active Hospital, Clinic, or Other Facility Administered Medication Ordered Dose Route Frequency Start Date End Date Status medroxyPROGESTERone (Depo-Provera) injection 150 mgIndications:Depo-Pro vera contraceptive status 150 mg IM Every 3 months 10/27/2024 01/20/2026 Active Active Problems Patient Care Coordination No te Formatting of this note migh t be different from the original. 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 ([facility]) 07/02/2018 11/20/2022 Encounters Date Type Department Care Team Description 01/27/2025 Patient Outreach [facility] [address] [place] [address] [phone] Christina Colunga MD Transition Of Care (Tcm) (HDF unscheduled) 01/25/2025 Patient Outreach [facility] [address] [place] [address] Christina Colunga MD Pre-visit Planning (HDF unscheduled unable to LVM ) 01/22/2025 Orders Only [facility] External Provider, [facility] 01/19/2025 Telephone [facility] [address] [place] [address] Christina Colunga MD communication/insura nce issue (Tc to pt to inform that insurance is coming out as [employer], unable to reach/leave vcm due to it saying the voicemail box has not been set up yet . Appt will be canceled.) from Last 3 Months Immunizations Immunization Administration Dates Next Due DTaP 07/30/2011,11/14/2006 DTaP [...] Q2 Not on file 02/24/2024 Comments Unknown Intention Date Recorded No desire to become (finding) 0 10/27/2024 Sex and Gender Information Value Date Recorded Sex Assigned at Female 04/23/2022 10:22 AM EDT Legal Sex Female 10:22 AM EDT Gender Identity Non-Binary 05/07/2024 3:43 PM EST Sexual Orientation Aromantic 08/04/2024 1 :51 PM EST Sexual Orientation Asexual 08/04/2024 1: 51 PM EST Last Filed Vital Signs Vital Sign Reading Time Taken Comments Blood Pressure 114/80 10/27/2024 1:24 PM EDT Pulse 118 10/27/2024 1:24 PM EDT Temperature 37.3 C (99.2 F) 10/27/2024 1:24 PM EDT Respiratory Rate 20 09/04/2024 11:1 4 AM EDT Oxygen Saturation 100% 10/27/2024 1:24 PM EDT Inhaled Oxygen Concentration - - Weight 90.2 kg (198 lb 12.8 oz) 10/27/2024 1:24 PM EDT Height 168.5 cm (5' 6.34 ) 10/27/2024 1:24 PM ED T Body Mass Index 31.76 10/27/2024 1:24 PM EDT Plan of Treatment Health Maintenance Due Date Last Done Comments Chlamydia and Gonorrhea Screening 2005 HIV Screening 2005 Fluoride Varnish 04/27/2015 10/25/2014 Alcohol/Substance Use Screening 2017 Meningococcal B Vaccine (1 of 2 - Standard) 2021 Hepatitis C Screening 2023 SDOH Screening 12/12/2024 12/13/2023 COVID-19 Vaccine ( season) 2025 09/14/2021, 12/02/2020, 11/11/2020 Influenza Vaccine (#1) 2025 , 04/18/2021, 04/24/2020, Additional history exists Disability Screening 08/04/2025 08/04/2024 Tobacco Screening 08/11/2025 08/11/2024 Depression Screening 08/21/2025 08/21/2024, 08/21/19 25 Family Planning (PISQ) 10/27/2025 10/27/2024 DTaP/Tdap/Td Vaccines (8 - Td or Tdap) [...] Years) and At-Risk Patients (6 to 49) Years Aged Out 11/14/2006, 02/21/2006, 2005, Additional history exists No longer eligible based on patient's age to complete this topic Hepatitis A Vaccines Completed 02/20/2007, 08/15/19 07 IPV Vaccines Completed 07/30/2011, 01/24, 2005, Additional history exists MMR Vaccines Completed 07/30/2011, 07/26, 08/15/2006 Varicella Vaccines Completed 08/19/2011, 0 07/30/2011, 08/15/2006 HPV Vaccines Completed 06/07/2016, 0809/2015, 10/31/2015 Meningococcal Vaccine Completed 10/06/2021, 017 RSV under 20 months Aged Out No longe r eligible based on patient's age to complete this topic Rotavirus Vaccines Aged Out No longer eligible based on patient's age to complete this topic Procedures Procedure Name Priority Date/Time Associated Diagnosis Comments MR BRAIN WO CONTRAST Routine 01/22/2025 10:38 PM EDT XR SKULL 1-3 VIEWS Routine 01/22/2025 12 :39 PM EDT XR CHEST 1 VIEW Routine 01/22/2025 12:37 PM EDT XR ABDOMEN 1 VIEW Routine 01/22/2025 12: 36 PM EDT TOPICAL APPLICATION OF FLUORIDE VARNISH Routine 10/25/2014 12:00 AM EDT from Last 3 Months or Most Recently Relevant to Health Maintenance Results * MR Brain w/o Contrast (01/22/2025 10:38 PM EDT) Anatomical Region Laterality Modality Brain Magnetic Resonan ce 01/22/2025 10:3 8 PM EDT Narrative 01/22/2025 10:40 PM EDT [place] [address] Magnetic Resonance Report Signed Patient: Florin Jaramillo MR#: [id number] : 2005 Acct:[id number] Age/Sex: 19 / F ADM Date: 01/22/25 Loc: [facility] 445-[address]: Balwinder Mitchell MD Ordering Physician: Nely Becker PA-C Date of Service: 01/22/25 Procedure(s): MR head/brain wo con Accession Number(s): [id number] cc: Christina Colunga MD; Nely Becker PA-C CLINICAL HISTORY: ?seizure --- Additional Notes or Special Instructions: Existing IV causing pt pain with use. Pt unable to tolerate placement of new IV for contrast Inj. NO CONTRAST ADMINISTERED. MR Brain without gadolinium Comparison: None provided Findings: No restricted diffusion. No intra-axial mass or hemorrhage. No midline shift. No hydrocephalus. No abnormal brain signal. Mesial temporal lobes are unremarkable. Vascular flow voids are intact. Orbital contents are unremarkable. The sinuses and mastoid air cells are clear. No focal bone lesion. IMPRESSION: Unremarkable brain MRI. This document has been electronically signed by: Boyd Diop MD on 01/22/2025 22:38:32 Dictated By: Boyd Diop MD Signed By: <Electronically signed by Boyd Diop MD in OV> 01/22/252238 DD/ 37 TD/TT: 01/22/252237 Electrostatic Paint Operator: Procedure Note Donotuseinterpreter, Image - 01/22/2025 [place] [address] Magnetic Resonance Report Signed Patient: Florin JaramilloMR#: [id number] : 2005cct:[id number] Age/Sex: 19 / FADM Date: 01/22/25 Loc: [facility] 445-[address]: Balwinder Mitchell MD Ordering Physician: Nely Becker PA-C Date of Service: 01/22/25 Procedure(s): MR head/brain wo con Accession Number(s): [id number] cc: Christina Colunga MD; Nely Becker PA-C CLINICAL HISTORY: ?seizure --- Additional Notes or Special Instructions:Existing IV causing pt pain with use. Pt unable to tolerate placement of new IV for contrast Inj. NOCONTRAST ADMINISTERED. MR Brain without gadolinium Comparison: None provided Findings: No restricted diffusion. No intra-axial mass or hemorrhage. No midline shift. No hydrocephalus. No abnormal brain signal. Mesial temporal lobes are unremarkable. Vascular flow voids are intact. Orbital contents are unremarkable. The sinuses and mastoid air cells are clear. No focal bone lesion. IMPRESSION: Unremarkable brain MRI. This document has been electronically signed by: Boyd Diop MD on 01/22/2025 22:38:32 Dictated By: Boyd Diop MD Signed By: <Electronically signed by Boyd Diop MD in OV> 01/22/252238 DD/ 37 TD/TT: 01/22/252237 Electrostatic Paint Operator: [facility] External Provider IMG MRI PROCEDURES Final Result * XR Skull 1-3 Views (01/22/2025 12:39 PM EDT) Anatomical Region Laterality Modality Head, Neck Radiographic Celia ging 01/22/2025 12:3 9 PM EDT Narrative 01/22/2025 1:46 PM EDT [place] [address] XRay Report Signed Patient: Florin Jaramillo MR#: [id number] : 2005 Acct:[id number] Age/Sex: 19 / F ADM Date: 01/22/25 Loc: [facility] 445-[address]: Balwinder Mitchell MD Ordering Physician: Chirag Henderson MD Date of Service: 01/22/25 Procedure(s): XR skull <4V Accession Number(s): [id number] cc: Christina Colunga MD; Chirag Henderson MD EXAMINATION: XR SKULL CLINICAL INFORMATION: PRE MRI ORBIT/SKULL XR R/O FOREIGN BODY MA UNABLE TO ANSWER SCREENING QUEST COMPARISON: None available. TECHNIQUE: 2 views of the skull were obtained. FINDINGS: There is a metallic circular nose ring. XR/XR skull <4V IMPRESSION: Metallic nose ring. Removal is advised prior to MRI. Electronically signed by: Hieu Guzman MD 01/22/2025 01:44 PM EDT RP Dictated By: Hieu Guzman MD Signed By: <Electronically signed by Hieu Guzman MD in OV> 01/22/25 1344 DD/ 1239 TD/TT: 01/22/25 1339 Electrostatic Paint Operator: Procedure Note Donotuseinterpreter, Image - 01/22/[address] [address] XRay Report Signed Patient: Florin JaramilloMR#: [id number] : 2005cct:[id number] Age/Sex: 19 / FADM Date: 01/22/25 Loc: [facility] 445-[address]: Balwinder Mitchell MD Ordering Physician: Chirag Henderson MD Date of Service: 01/22/25 Procedure(s): XR skull <4V Accession Number(s): [id number] cc: Christina Colunga MD; Chirag Henderson MD EXAMINATION: XR SKULL CLINICAL INFORMATION: PRE MRI ORBIT/SKULL XR R/O FOREIGN BODY MA UNABLE TO ANSWER SCREENING QUEST COMPARISON: None available. TECHNIQUE: 2 views of the skull were obtained. FINDINGS: There is a metallic circular nose ring. XR/XR skull <4V IMPRESSION: Metallic nose ring. Removal is advised prior to MRI. Electronically signed by: Hieu Guzman MD 01/22/2025 01:44 PM EDT Dictated By: Hieu Guzman MD Signed By: <Electronically signed by Hieu Guzman MD in OV> 01/22/25 1344 DD/ 1239 TD/TT: 01/22/25 1339 Electrostatic Paint Operator: us [facility] External Provider IMG XR PROCEDURES Final Result * XR Chest 1 View (01/22/2025 12:37 PM EDT) Anatomical Region Laterality Modality Chest Radiographic Celia ging 01/22/2025 12:3 7 PM EDT Narrative 01/22/2025 1:48 PM EDT [address] [address] XRay Report Signed Patient: Florin Jaramillo MR#: [id number] : 2005 Acct:[id number] Age/Sex: 19 / F ADM Date: 01/22/25 Loc: [facility] 445-[address]: Balwinder Mitchell MD Ordering Physician: Chirag Henderson MD Date of Service: 01/22/25 Procedure(s): XR chest 1V Accession Number(s): [id number] cc: Christina Colunga MD; Chirag Henderson MD EXAMINATION: XR CHEST CLINICAL INFORMATION: PRE MRI CHEST XR R/O FOREIGN BODY MA UNABLE TO ANSWER SCREENING QUESTIONS COMPARISON: September 26, 2023 TECHNIQUE: Frontal view of the chest was obtained. FINDINGS: No significant abnormality is noted involving the heart, lungs, mediastinum, bony thorax or soft tissues. XR/XR chest 1V IMPRESSION: No acute disease No metallic foreign body. Electronically signed by: Hieu Guzman MD 01/22/2025 01:45 PM EDT RP Dictated By: Hieu Guzman MD Signed By: <Electronically signed by Hieu Guzman MD in OV> 01/22/25 1345 DD/ 1237 TD/TT: 01/22/25 1339 Electrostatic Paint Operator: Procedure Note Donotuseinterpreter, Image - 01/22/2025 [place] [address] XRay Report Signed Patient: Florin JaramilloMR#: [id number] : 2005cct:[id number] Age/Sex: 19 / FADM Date: 01/22/25 Loc: [facility] 445-[address]: Balwinder Mitchell MD Ordering Physician: Chirag Henderson MD Date of Service: 01/22/25 Procedure(s): XR chest 1V Accession Number(s): [id number] cc: Christina Colunga MD; Chirag Henderson MD EXAMINATION: XR CHEST CLINICAL INFORMATION: PRE MRI CHEST XR R/O FOREIGN BODY MA UNABLE TO ANSWER SCREENING QUESTIONS COMPARISON: September 26, 2023 TECHNIQUE: Frontal view of the chest was obtained. FINDINGS: No significant abnormality is noted involving the heart, lungs, mediastinum, bony thorax or soft tissues. XR/XR chest 1V IMPRESSION: No acute disease No metallic foreign body. Electronically signed by: Hieu Guzman MD 01/22/2025 01:45 PM EDT RP Dictated By: Hieu Guzman MD Signed By: <Electronically signed by Hieu Guzman MD in OV> 01/22/25 1345 DD/ 1237 TD/TT: 01/22/25 1339 Electrostatic Paint Operator: [facility] External Provider IMG XR PROCEDURES Final Result * XR Abdomen 1 View (01/22/2025 12:36 PM EDT) Anatomical Region Laterality Modality Abdomen Radiographic Celia ging 01/22/2025 12:3 6 PM EDT Narrative 01/22/2025 1:49 PM EDT [place] [address] XRay Report Signed Patient: Florin Jaramillo MR#: [id number] : 2005 Acct:[id number] Age/Sex: 19 / F ADM Date: 01/22/25 Loc: [facility] 445-[address]: Balwinder Mitchell MD Ordering Physician: Chirag Henderson MD Date of Service: 01/22/25 Procedure(s): XR abdomen 1V Accession Number(s): [id number] cc: Christina Colunga MD; Chirag Henderson MD EXAMINATION: XR ABDOMEN KUB CLINICAL INDICATION: PRE MRI ABD XR R/O FOREIGN BODY PT UNABLE TO ANSWER SCREENING QUESTIONS COMPARISON: None available. TECHNIQUE: AP view of the abdomen. FINDINGS: The bowel gas pattern is normal with no evidence of ileus or obstruction. No unusual soft tissue calcifications are noted. The bones are unremarkable. Metallic wire, probably temperature probe, projects over the midline in the lower pelvis. XR/XR abdomen 1V IMPRESSION: Metallic wire in the central lower pelvis is probably a temperature probe. MRI safety should be checked. Electronically signed by: Hieu Guzman MD 01/22/2025 01:47 PM EDT RP Dictated By: Hieu Guzman MD Signed By: <Electronically signed by Hieu Guzman MD in OV> 01/22/25 1347 DD/ 1236 TD/TT: 01/22/25 1339 Electrostatic Paint Operator: Procedure Note Donotuseinterpreter, Image - 01/22/[address] [address] XRay Report Signed Patient: Florin JaramilloMR#: [id number] : 2005cct:[id number] Age/Sex: Date: 01/22/25 Loc: [facility] 445-[address]: Balwinder Mitchell MD Ordering Physician: Chirag Henderson MD Date of Service: 01/22/25 Procedure(s): XR abdomen 1V Accession Number(s): [id number] cc: Christina Colunga MD; Chirag Henderson MD EXAMINATION: XR ABDOMEN KUB CLINICAL INDICATION: PRE MRI ABD XR R/O FOREIGN BODY PT UNABLE TO ANSWER SCREENING QUESTIONS COMPARISON: None available. TECHNIQUE: AP view of the abdomen. FINDINGS: The bowel gas pattern is normal with no evidence of ileus or obstruction. No unusual soft tissue calcifications are noted. The bones are unremarkable. Metallic wire, probably temperature probe, projects over the midline in the lower pelvis. XR/XR abdomen 1V IMPRESSION: Metallic wire in the central lower pelvis is probably a temperature probe. MRI safety should be checked. Electronically signed by: Hieu Guzman MD 01/22/2025 01:47 PM EDT RP Dictated By: Hieu Guzman MD Signed By: <Electronically signed by Hieu Guzman MD in OV> 01/22/25 1347 DD/ 1236 TD/TT: 01/22/25 1339 Electrostatic Paint Operator: [facility] External Provider IMG XR PROCEDURES Final Result from Last 3 Months Insurance [email or web address] Care Teams Commanding Officer Traffic Division Relationship Specialty Start Date End Date Christina Colunga MD [address] [place] [address] PCP - General Pediatrics 03/07/15
--- OUTSIDE RECORDS SUMMARY | 2025-03-29 18:35 | XMS_ITS | Encounter Summary ---
Author Organization [facility] Address [address] [facility] [address] [place] [phone] Phone Care Team Providers Care Agency Appointments Supervisor Name Role Phone Christina Colunga MD Primary Care Provider [phone] Christina Colunga MD Primary Care Provider [phone] Encounter Details Date Type Department Care Team (Late st Contact Info) Description 12/29/2019 Procedure Pass [place] Admitting Dept - Virtual Department [address] [place] [address] Social History Tobacco Use Types Packs/Day Years [...] filedocumented in this encounter Additional Health Concerns Infection Onset Date Last Indicated Resolved Time CoV-Risk Comment:Adm from residential facility 01/05/2020 01/05/2020 01/12/2020 10:38 AM EDT documented as of this encounter Care Teams Agency Appointments Supervisor Relationship Specialty Start Date End Date Christina Colunga MD [address] [place] [address] PCP - General Pediatrics 12/29/19 01/19/22 Christina Colunga MD [address] [place] [address] PCP - General Pediatrics 01/20/22 documented as of this encounter Additional Source Comments The information contained in this document represents components of the legal health record. It is not the complete legal health record.[facility]
--- OUTSIDE RECORDS SUMMARY | 2025-03-29 18:35 | XMS_ITS | Encounter Summary ---
Author Organization [facility] Address [address] [place] [phone] Phone Care Team Providers Care Tv Production Assistant Name Role Phone Christina Colunga MD Primary Care Provider Encounter Details Date Type Department Care Team (Late st Contact Info) Description 06/08/2024 Procedure Pass [facility] ENDO DEPT [address] [place] [address] Social History Tobacco Use Types Packs/Day Years Used Date Smoking Tobacco: Some Days Cigarettes Smokeless Tobacco: Current Comments:vape Alcohol Use Standard Drinks/Week Comments Not [...] your housing situation today? I have uche bharti 06/05/2024 How many times have you move [...] Diagnoses Not on filedocumented in this encounter Care Teams Tv Production Assistant Relationship Specialty Start Date End Date Christina oClunga MD [address] [place] [address] PCP - General Pediatrics 01/20/22 documented as of this encounter Additional Source Comments The information contained in this document represents components of the legal health record. It is not the complete legal health record.[facility]
--- OUTSIDE RECORDS SUMMARY | 2025-03-29 18:35 | XMS_ITS | Clinical Summary ---
Author Organization [facility] Address [address] [place] [address] Phone Care Team Providers Care Railroad Maintenance Clerk Name Role Phone Rabia Schmitz MD Primary Care Provider Allergies No known active allergies Medications No known medications Active Problems No known active problems Encounters Date Type Department Care Team Description 03/11/2025 10:00 PM EDT - 03/12/2025 12:09 AM EDT Emergency [facility] [address] [place] [address] Nonintractable headache, unspecified chronicity pattern, unspecified headache type (Primary Dx) Discharge Disposition: Home or Self Care from Last 3 Months Social History Tobacco Use Types Packs/Day Years Used Date Smoking Tobacco: Never Assessed Comments Unknown Sex and Gender Information Value Date Recorded Sex Assigned at Not on file Legal Sex X 03/11/2025 6:52 PM EDT Gender Identity Not on file Sexual Orientation Not on file Obstetrics History Growth Chart Information Age Height Weight Xulaga-[id number] th Percentile BMI Percentile Head Circum Head Circum Percentile Date 19 years 167.6 cm (5' 6 ) 79.4 kg (175 lb) 90.81%* 2024 * [facility] (Boys, 2-20 Years) Last Filed Vital Signs Vital Sign Reading Time Taken Comments Blood Pressure 123/77 03/11/2025 10:41 PM EDT Pulse 52 03/11/2025 10:41 PM EDT Temperature 36.8 C (98.2 F) 03/11/2025 10:41 PM EDT Respiratory Rate 18 03/11/2025 10:41 PM EDT Oxygen Saturation 100% 03/11/2025 10:41 PM EDT Inhaled Oxygen Concentration - - Weight 79.4 kg (175 lb) 03/11/2025 7:02 PM EDT Height 167.6 cm (5' 6 ) 03/11/2025 7:02 PM EDT Body Mass Index 28.25 03/11/2025 7:02 PM EDT Plan of Treatment Upcoming Encounters Date Type Department Care Team (Late st Contact Info) Description 03/07/2026 3:30 PM EDT Office Visit Internal Medicine - [facility] [address], [place] [phone] Rabia Schmitz MD [address], [place] Health Maintenance Due Date Last Done Comments Gonorrhea/Chlamydia Screening 2005 Varicella Vaccines (1 of 2 - 13+ 2-dose series) 2018 HPV Vaccines (1 - 3-dose series) 2020 Meningococcal B Vaccine (1 o f 2 - Standard) 2021 Depression Screening 06/24/2024 DTaP,Tdap,and Td Vaccines (1 - Tdap) 2024 Hepatitis B Vaccines (1 of 3 - 19+ 3-dose series) 2024 COVID-19 Vaccine (1 - 2023-2 5 season) 2025 Influenza Vaccine (#1) 2025 Annual Well Child Visit (3-2 1 years old) 03/11/2025 HIV Screening 03/11/2025 Hepatitis C Screening 03/11/2025 Social Influencers of Health Screening 03/11/2025 RSV Immunization Adult Patie nts (1 - 1-dose 75+ series) 2080 HIB Vaccines Aged Out No longer eligi ble based on patient's age to complete this topic Hepatitis A Vaccines Aged Out No long er eligible based on patient's age to complete this topic IPV Vaccines Aged Out No longer eligi ble based on patient's age to complete this topic MMR Vaccines Aged Out No longer eligi ble based on patient's age to complete this topic Meningococcal ACWY Vaccine Aged Out N o longer eligible based on patient's age to complete this topic Pneumococcal Vaccine: Pediat rics (0 to 5 Years) and At-Risk Patients (6 to 49 Years) Aged Out No longer eligible b ased on patient's age to complete this topic RSV Immunization Patients Un gerda 20 months Aged Out No longer eligible b ased on patient's age to complete this topic Procedures Procedure Name Priority Date/Time Associated Diagnosis Comments ECG ANNOTATED 03/12/2025 TROPONIN I HIGH SENSITIVITY Timed 03/11/2025 10:31 PM EDT ECG 12-LEAD STAT 03/11/2025 10:21 PM EDT XR CHEST 2 VIEWS STAT 03/11/2025 10:1 3 PM EDT ECG 12-LEAD STAT 03/11/2025 8:28 PM EDT CBC WITH AUTO DIFFERENTIAL STAT 03/11/2025 8:24 PM EDT B-TYPE NATRIURETIC PEPTIDE STAT 03/11/2025 8:24 PM EDT MAGNESIUM STAT 03/11/2025 8:24 PM EDT LIPASE STAT 03/11/2025 8:24 PM EDT COMPREHENSIVE METABOLIC PANEL STAT 03/11/2025 8:24 PM EDT CBC AND DIFFERENTIAL STAT 03/11/2025 8:24 PM EDT TROPONIN I HIGH SENSITIVITY Timed 03/11/2025 8:24 PM EDT from Last 3 Months Results * ECG-Annotated (03/12/2025) us Provider Onbase MD ECG ORDERABLES Final Result * Troponin I high sensitivity (03/11/2025 10:31 PM EDT) Only the most recent of2 resultswithin the time period is included. High Sensitivity Troponin I <3 <=79 ng/L LAB CHEMISTRY METHOD 03/11/2025 11:08 PM EDT [facility] Blood Venous blood specimen / Unknown Venipuncture / Unknown 03/11/2025 10:31 PM EDT 03/11/2025 10:45 PM EDT Narrative [facility] - 03/11/2025 11:08 PM EDT High levels of biotin in samples may falsely decrease hsTroponin values. Use caution when interpreting hsTroponin results in patients taking biotin who exhibit renal impairment (eGFR <60) or in patients taking more than 20 mg/day of biotin. Jamari Pulido MD LAB BLOOD ORDERABLES Fin al Result Performing Organization Address City/[facility]/ZIP Co de Phone Number [facility] [address] [place] [address], [place] [phone] * ECG 12 lead (03/11/2025 10:21 PM EDT) Only the most recent of2 resultswithin the time period is included. Ventricular Rate ECG 56 BPM GEMUSE Atrial Rate 56 BPM GEMUSE P-R Interval 146 ms GEMUSE QRS Duration 96 ms GEMUSE Q-T Interval 440 ms GEMUSE QTc 424 ms GEMUSE P Wave [place] 6 degrees GEMUSE R [place] 60 degrees GEMUSE T [place] 52 degrees GEMUSE ECG Interpretation Sinus bradycardia Otherwise normal ECG When compared with ECG of 11-MAR-2025 20:28, No significant change was found Confirmed by MD Rigoberto, [place] ([id number] on 03/12/2025 9:49:59 PM GEMUSE 03/11/2025 10:2 1 PM EDT 03/12/2025 9:49 PM EDT Jamari Pulido MD ECG ORDERABLES Final Re sult GEMUSE * XR Chest 2 Views (03/11/2025 10:13 PM EDT) Anatomical Region Laterality Modality Body Radiographic Celia ging 03/12/2025 7:03 AM EDT Impressions 03/12/2025 7:05 AM EDT No acute chest disease. -------- FINAL REPORT -------- Dictated By: Jabari Will Dictated Date: 03/12/2025 07:03 ET Assigned Physician: Jabari Will Reviewed and Electronically Signed By: Jabari Will Signed Date: 03/12/2025 07:05 ET Workstation ID: [id number] Transcribed By: Self Edit Transcribed Date: 03/12/2025 07:03 ET Narrative 03/12/2025 7:05 AM EDT EXAMINATION: CHEST CLINICAL INFORMATION: Chest pain COMPARISON: None. TECHNIQUE: 2 views of the chest FINDINGS: The cardiac size, mediastinal contours, lloyd, vasculature and visualized pleural margins are within normal limits. No focal pneumonia or large area of atelectasis. Tiny density superimposing over the mid left clavicle is unlikely that any clinical significance. Procedure Note Jabari Will, - 03/12/2025 EXAMINATION: CHEST CLINICAL INFORMATION: Chest pain COMPARISON: None. TECHNIQUE: 2 views of the chest FINDINGS: The cardiac size, mediastinal contours, lloyd, vasculature and visualizedpleural margins are within normal limits. No focal pneumonia or large area of atelectasis. Tiny density superimposing over the mid left clavicle is unlikely that anyclinical significance. IMPRESSION: No acute chest disease. -------- FINAL REPORT -------- Dictated By: Jabari Will Dictated Date: 03/12/2025 07:03 ET Assigned Physician: Jabari Will Reviewed and Electronically Signed By: Jabari Will Signed Date: 03/12/2025 07:05 ET Workstation ID: [id number] Transcribed By: Self Edit Transcribed Date: 03/12/2025 07:03 ET Jamari Pulido MD IMG XR PROCEDURES Final Result * (ABNORMAL) CBC auto differential (03/11/2025 8:24 PM EDT) WBC 4.9 4.8 - 10.8 K/mcL LAB HEMETOLOGY METHOD 03/11/2025 8:50 PM EDT [facility] RBC 4.00 3.80 - 5.50 M/mcL LAB HEMETOLOGY METHOD 03/11/2025 8:50 PM EDT [facility] Hemoglobin 11.9(L) 12.0 - 18.0 g/dL LAB HEMETOLOGY METHOD 03/11/2025 8:50 PM EDT [facility] Hematocrit 36.5 36.0 - 48.0 % LAB HEMETOLOGY METHOD 03/11/2025 8:50 PM EDT [facility] MCV 91.5 79.0 - 98.0 FL LAB HEMETOLOGY METHOD 03/11/2025 8:50 PM EDT [facility] MCH 29.8 27.0 - 32.0 pcg LAB HEMETOLOGY METHOD 03/11/2025 8:50 PM EDT [facility] MCHC 32.6 32.0 - 37.0 g/dL LAB HEMETOLOGY METHOD 03/11/2025 8:50 PM EDT [facility] RDW 13.0 11.0 - 15.0 % LAB HEMETOLOGY METHOD 03/11/2025 8:50 PM EDT [facility] Platelets 288 130 - 400 K/mcL LAB HEMETOLOGY METHOD 03/11/2025 8:50 PM EDT [facility] MPV 10.0 7.0 - 11.0 FL LAB HEMETOLOGY METHOD 03/11/2025 8:50 PM EDT [facility] NRBC 0.0 <1.0 % LAB HEMETOLOGY METHOD 03/11/2025 8:50 PM EDT [facility] NRBC Absolute 0.00 <0.10 K/mcL LAB HEMETOLOGY METHOD 03/11/2025 8:50 PM EDT [facility] Neutrophils Relative 48.1 % LAB HEMETOLOGY METHOD 03/11/2025 8:50 PM EDT [facility] Lymphocytes Relative 42.3 % LAB HEMETOLOGY METHOD 03/11/2025 8:50 PM EDT [facility] Monocytes Relative 6.4 % LAB HEMETOLOGY METHOD 03/11/2025 8:50 PM EDT [facility] Eosinophils Relative 1.6 % LAB HEMETOLOGY METHOD 03/11/2025 8:50 PM EDT [facility] Basophils Relative 1.2 % LAB HEMETOLOGY METHOD 03/11/2025 8:50 PM EDT [facility] Immature Granulocytes Relative 0.4 % LAB HEMETOLOGY METHOD 03/11/2025 8:50 PM EDT [facility] Neutrophils Absolute 2.33 1.50 - 7.00 K/mcL LAB HEMETOLOGY METHOD 03/11/2025 8:50 PM EDT [facility] Lymphocytes Absolute 2.05 1.00 - 5.00 K/mcL LAB HEMETOLOGY METHOD 03/11/2025 8:50 PM EDT [facility] Monocytes Absolute 0.31 0.20 - 1.00 K/mcL LAB HEMETOLOGY METHOD 03/11/2025 8:50 PM EDT [facility] Eosinophils Absolute 0.08 0.00 - 0.50 K/mcL LAB HEMETOLOGY METHOD 03/11/2025 8:50 PM EDT [facility] Basophils Absolute 0.06 0.00 - 0.20 K/mcL LAB HEMETOLOGY METHOD 03/11/2025 8:50 PM EDT [facility] Immature Granulocytes Absolute 0.02 0.00 - 0.03 K/mcL LAB HEMETOLOGY METHOD 03/11/2025 8:50 PM EDT [facility] Blood Venous blood specimen / Unknown Venipuncture / Unknown 03/11/2025 8:24 PM EDT 03/11/2025 8:41 PM EDT Jamari Pulido MD LAB BLOOD ORDERABLES Fin al Result Performing Organization Address City/[facility]/ZIP Co de Phone Number [facility] [address] [place] [address], [place] [phone] * B-type natriuretic peptide (03/11/2025 8:24 PM EDT) BNP 36 <=100 pcg/mL LAB CHEMISTRY METHOD 03/11/2025 9:15 PM EDT [facility] Blood Venous blood specimen / Unknown Venipuncture / Unknown 03/11/2025 8:24 PM EDT 03/11/2025 8:40 PM EDT us Jamari Pulido MD LAB BLOOD ORDERABLES Fin al Result Performing Organization Address [facility] Co de Phone Number [facility] [address] [place] [address], [place] [phone] * Magnesium (03/11/2025 8:24 PM EDT) Pathologist [facility] Magnesium 2.0 1.9 - 2.6 mg/dL LAB CHEMISTRY METHOD 03/11/2025 9:09 PM EDT [facility] Blood Venous blood specimen / Unknown Venipuncture / Unknown 03/11/2025 8:24 PM EDT 03/11/2025 8:41 PM EDT Jamari Pulido MD LAB BLOOD ORDERABLES Fin al Result Performing Organization Address City/[facility]/ZIP Co de Phone Number [facility] [address] [place] [address], [place] [phone] * Lipase (03/11/2025 8:24 PM EDT) Lipase 23 13 - 75 unit/L LAB CHEMISTRY METHOD 03/11/2025 9:09 PM EDT [facility] Blood Venous blood specimen / Unknown Venipuncture / Unknown 03/11/2025 8:24 PM EDT 03/11/2025 8:41 PM EDT us Jamari Pulido MD LAB BLOOD ORDERABLES Fin al Result [facility] [address] [place] [address], [place] [phone] * Comprehensive metabolic panel (03/11/2025 8:24 PM EDT) Sodium 141 133 - 145 mmol/L LAB CHEMISTRY METHOD 03/11/2025 9:10 PM [facility] Potassium 3.9 3.5 - 5.5 mmol/L LAB CHEMISTRY METHOD 03/11/2025 9:10 PM [facility] Chloride 107 96 - 110 mmol/L LAB CHEMISTRY METHOD 03/11/2025 9:10 PM [facility] CO2 28 21 - 32 mmol/L LAB CHEMISTRY METHOD 03/11/2025 9:10 PM [facility] Anion Gap 6 3 - 11 LAB CHEMISTRY METHOD 03/11/2025 9:10 PM [facility] Glucose 79 70 - 100 mg/dL LAB CHEMISTRY METHOD 03/11/2025 9:10 PM [facility] BUN 8 5 - 25 mg/dL LAB CHEMISTRY METHOD 03/11/2025 9:10 PM [facility] Creatinine 0.52 0.50 - 1.30 mg/dL LAB CHEMISTRY METHOD 03/11/2025 9:10 PM [facility] eGFR 137 >=60 mL/min/1. 73m2 LAB CHEMISTRY METHOD 03/11/2025 9:10 PM [facility] Comment: For non-binary individuals or unknown sex, the equation for female sex is used to calculate the estimated glomerular filtration rate (eGFR). Calculation based on the Chronic Kidney Disease Epidemiology Collaboration (CKD- EPI) equation refit without adjustment for race. BUN/Creatinine Ratio 15.4 LAB CHEMISTRY METHOD 03/11/2025 9:10 PM EDT [facility] Calcium 9.6 8.5 - 10.5 mg/dL LAB CHEMISTRY METHOD 03/11/2025 9:10 PM [facility] AST (SGOT) 33 10 - 42 unit/L LAB CHEMISTRY METHOD 03/11/2025 9:10 PM T [facility] ALT (SGPT) 54 10 - 60 unit/L LAB CHE[facility]STRY [facility] Alkaline Phosphatase 72 42 - 121 unit/L LAB CHEMISTRY METHOD 03/11/2025 9:10 PM EDT [facility] Total Protein 6.7 6.0 - 8.0 g/dL LAB CHEMISTRY METHOD 03/11/2025 9:10 PM EDT [facility] Albumin 3.9 3.2 - 5.0 g/dL LAB CHEMISTRY METHOD 03/11/2025 9:10 PM [facility] Total Bilirubin 0.9 0.0 - 1.4 mg/dL LAB CHEMISTRY METHOD 03/11/2025 9:10 PM T [facility] Blood Venous blood specimen / Unknown Venipuncture / Unknown 03/11/2025 8:24 PM EDT 03/11/2025 8:41 PM EDT us Jamari Pulido MD LAB BLOOD ORDERABLES Fin al Result [facility] [address] [place] [address], from Last 3 Months Insurance [facility] [address] Care Teams Railroad Maintenance Clerk Relationship Specialty Start Date End Date Rabia Schmitz MD [address] [place] [address] PCP - General Internal Medicine 03/18/25
--- NOTE | 2025-03-29 19:38 | PC.NURSE ---
Assumed care of pt at 1900. PT continuing to refuse PO meds. Discussed risks with PT. Pt continuing to refuse states they cant drink anything d/t water weight concerns. Notified Provider, JERI Donaldson. Anika at bedside discussing with PT. PT somewhet agreeable to packets as opposed to pills. Anika discussing the option of drinking it slowly. Ordered TW to leave it at the bedside to allow PT to drink it over time. Pt agreeable to EKG. Plan of care ongoing
[2025-03-29] MEDS: Potassium Chloride Packet 20 MEQ PACKET 60 MEQ PO (20:06)
[2025-03-29 20:25] LABS: Appearance Urine Clear; Glucose Urine UA Negative (Negative); PH 5.5 (5.0-9.0); Specific Gravity - Urine >= 1.030 (1.005-1.025); UMIC TRIGGER UA YES; UPreg QC Valid YES
[2025-03-29 20:33] LABS: Cannabinoid Screen Urine POSITIVE (Not Detect)
[2025-03-29 20:36] LABS: COVID-19 Test Negative (Negative); IDNOW Serial# 58CA691E
--- NOTE | 2025-03-29 21:13 | PC.NURSE ---
Pt finished potassium packet beverage.
[2025-03-29 21:27] LABS: Magnesium 1.8 mg/dL (1.6-2.6)
[2025-03-29 23:24] VITALS: BP 115/60; PULSE 52; RESP 16; TEMP 36.5; O2SAT 99
[2025-03-30 03:38] LABS: Anion Gap 13 (12-20); Blood Urea Nitrogen 11 mg/dL (9-16); Calcium 9.0 mg/dL (8.4-10.2); Carbon Dioxide 21 mmol/L (22-29); Chloride 110 mmol/L (96-108); Creatinine Clr Calc Pharmacy 145.8; Estimated Glomerular Filt Rate > 60; Potassium 3.4 mmol/L (3.3-5.1); Sodium 141 mmol/L (135-145)
--- NOTE | 2025-03-30 07:37 | PC.NURSE ---
Assumed care, report received. Pt is currently sleeping, safety maintained.
[2025-03-30 08:48] VITALS: RESP 14
--- NOTE | 2025-03-30 12:11 | MHC.EDTECH ---
Patient awake and declined 100% of breakfast tray, asking for it to be removed. RN aware
--- NOTE | 2025-03-30 14:40 | HO.PM.IMCN ---
History of Present Illness Data of Consult Service Date: 03/30/25 Primary Care Provider: Unknown Physician HPI Reason for consult: Medical management 19-year-old female to male patient with a history of PTSD, OCD, borderline personality disorder, suicide attempts with frequent inpatient hospital admissions, previous intentional overdoses with bulimia, presented to the ED with concerns of worsening depression and thoughts of suicidal ideation. Notably patient had a full bottle of Benadryl as well as a box car washer on presentation to the ED. Patient had a normal EKG, p.o. potassium was ordered for a potassium level of 2.9. Patient reports to me today that her potassium corrected itself could she did not drink the potassium that they gave her in the ED. Other electrolytes were within normal limits, no leukocytosis, stable H&H. Tox screen positive for marijuana, no EtOH. On exam no medical concerns except for reporting that she does not eat, drink or walk properly. She is unable to elaborate further. Found sitting on top of the bookcase very minimally interactive with this designer/writer. Review of Systems Review of Systems: Denies any shortness of breath, chest pain, palpitations, dizziness, lightheadedness, headaches, dysuria, abdominal pain or discomfort, nausea, vomiting or diarrhea. [facility] Medical History PTSD (post-traumatic stress disorder) Borderline personality disorder Bulimia OCD (obsessive compulsive disorder) Drug overdose Social History Household Members: Other Housing: Homeless Housing Other:: [employer] ([place]). Do you presently have visiting nurse or other home services: No Alcohol intake: never Comment: 1-[address] Patient Tobacco Use Status: Never used Tobacco Smoked in Last 30 Days: No e-Cigarette/Vaping Use: Never Used Second Hand Smoke Exposure: No Substance Use Type: Marijuana Do you feel safe in your current relationship?: No Current Relationship Is there a partner from a previous relationship who is making you feel unsafe now?: No Are you made to feel afraid or neglected: Yes (pt is homeless) Spiritual Healthcare Practices: n/a Jain Healthcare Practices: n/a Cultural Healthcare Practices: n/a Advance Directives: No Advance Directives Information Provided: Yes Do you have a plan to hurt others: No Plan Recently lost weight without trying: No How much weight loss: Not applicable Eating poorly because of decreased appetite: No Nutrition screen score: 0 Nutrition Risks: Anorexia Patient : No : No Poor oral hygiene: No service: No Sexual orientation: Decline to Answer Meds Allergies Allergy/AdvReac Type Severity Reaction Status Date / Time No Known Allergies Allergy Verified 03/29/25 15:51 Active Medications: Current Medications Acetaminophen (Acetaminophen 325 Mg Tablet) 650 mg PO Q6H PRN PRN Reason: Headache/Pain, Scale 1-10 Al Hydroxide/Mg Hydroxide (Magnesium Hydrox/Alum Hydrox 30 Ml Oral.Susp) 30 ml PO Q6H PRN PRN Reason: Heartburn/Nausea Hydroxyzine HCl (Hydroxyzine Hcl 25 Mg Tablet) 25 mg PO Q6H PRN PRN Reason: mild anxiety Nicotine Polacrilex (Nicotine Polacrilex 2 Mg Gum) 4 mg BUCCAL Q2H PRN PRN Reason: Nicotine Cravings Olanzapine (Olanzapine 5 Mg Tablet) 5 mg PO Q4H PRN PRN Reason: agitation Trazodone HCl (Trazodone Hcl 50 Mg Tablet) 50 mg PO BEDTIME MRX1 PRN PRN Reason: Insomnia Home Medications ?Medication ?Instructions ?Recorded ?Confirmed ?Last Taken ?Type No Known Home Meds 03/29/25 03/29/25 Unknown History Physical Exam Vital Signs and Narrative: Vital Signs: Last Vital Signs Temp 97.7 F 03/29/25 23:24 Pulse 52 03/29/25 23:24 Resp 14 03/30/25 08:48 BP 115/60 03/29/25 23:24 Pulse Ox 99 03/29/25 23:24 O2 Del Method Room Air 03/29/25 23:24 BMI result Body Mass Index 21.1 CONST: Alert and oriented, in NAD. Well nourished HEENT: Normocephalic, atraumatic, MMM, Eyes clear RESP: Lungs clear, RRR even and regular HEART:,RRR, S1, S2. No edema GI:Abdomen Soft NT, ND. + BS times four :Deferred SKIN: Warm dry and intact, no visible lesions or rashes NEURO:CN II-XII Intact bilaterally, Sensation intact. Speech clear PSYCH: Normal affect Results Labs 03/29/25 16:22 03/30/25 03:21 Labs: Laboratory Results - last 24 hr 03/29/25 03/29/25 03/29/25 16:22 20:12 20:13 MCV 88.0 MCH 30.2 MCHC 34.4 RDW 12.5 Plt Count 240 MPV 10.9 Immature Gran % (Auto) 0.2 Neut % (Auto) 67.8 Lymph % (Auto) 27.3 [place] % (Auto) 4.0 Eos % (Auto) 0.0 Baso % (Auto) 0.7 Lymph # (Auto) 1.7 [place] # (Auto) 0.2 Eos # (Auto) 0.0 Baso # (Auto) 0.0 Abs Immat Gran (auto) 0.01 Absolute Neuts (auto) 4.1 Absolute Nucleated RBC 0.000 Nucleated RBC % (auto) 0.0 Anion Gap 10 L Estim Creat Clear Calc 126.7 Estimated GFR > 60 Random Glucose 75 Calcium 9.5 D Phosphorus 3.2 Magnesium 1.8 Total Bilirubin 0.7 AST 25 ALT 18 Alkaline Phosphatase 61 Total Protein 7.4 Albumin 4.5 Urine Color Dark Yellow Urine Appearance Clear Urine pH 5.5 Ur Specific [place] >= 1.030 H Urine Protein Trace Urine Glucose (UA) Negative Urine Ketones 40 Urine Blood Negative Urine Nitrite Negative Ur Leukocyte Esterase Trace H Urine RBC 0-2 Urine WBC 0-5 Ur Squamous Epith Cells 0-2 Calcium Oxalate Crystal Present Urine Bacteria Trace Hyaline Casts 0-2 Urine Test NEGATIVE Salicylates < 5.0 L Urine Opiates Screen Not Detected Ur Buprenorphine Scrn Not Detected Ur Oxycodone Screen Not Detected Urine Methadone Screen Not Detected Urine Fentanyl Screen Not Detected Acetaminophen < 3 Ur Barbiturates Screen Not Detected Ur Phencyclidine Scrn Not Detected Ur Amphetamines Screen Not Detected U Benzodiazepines Scrn Not Detected Urine Cocaine Screen Not Detected U Marijuana (THC) Screen POSITIVE H Ethyl Alcohol < 10 COVID-19 (LEDY) Negative COVID-19 Clin Com See Note 03/30/25 03:21 MCV MCH MCHC RDW Plt Count MPV Immature Gran % (Auto) Neut % (Auto) Lymph % (Auto) [place] % (Auto) Eos % (Auto) Baso % (Auto) Lymph # (Auto) [place] # (Auto) Eos # (Auto) Baso # (Auto) Abs Immat Gran (auto) Absolute Neuts (auto) Absolute Nucleated RBC Nucleated RBC % (auto) Anion Gap 13 Estim Creat Clear Calc 145.8 Estimated GFR > 60 Random Glucose 84 Calcium 9.0 Phosphorus Magnesium Total Bilirubin AST ALT Alkaline Phosphatase Total Protein Albumin Urine Color Urine Appearance Urine pH Ur Specific [place] Urine Protein Urine Glucose (UA) Urine Ketones Urine Blood Urine Nitrite Ur Leukocyte Esterase Urine RBC Urine WBC Ur Squamous Epith Cells Calcium Oxalate Crystal Urine Bacteria Hyaline Casts Urine Test Salicylates Urine Opiates Screen Ur Buprenorphine Scrn Ur Oxycodone Screen Urine Methadone Screen Urine Fentanyl Screen Acetaminophen Ur Barbiturates Screen Ur Phencyclidine Scrn Ur Amphetamines Screen U Benzodiazepines Scrn Urine Cocaine Screen U Marijuana (THC) Screen Ethyl Alcohol COVID-19 (LEDY) COVID-19 Clin Com Assessment and Plan (1) Suicidal ideation: Status: Acute Plan 19-year-old female to male with a history of borderline personality disorder, PTSD, OCD, bulimia presents to the ED with suicide attempt with ingestion of Benadryl. Borderline personality disorder/PTSD/OCD/bulimia/suicide attempt Treatment per psychiatric team Thank you for allowing me to participate in the care of this patient. Will follow as needed, please notify medical provider with any changes in condition or concerns.
--- NOTE | 2025-03-30 15:25 | PC.ADMIT ---
Pt arrived at 1330 from [facility] ED pod. PT is female to male transgender, they/them pronouns. Pt self presented with SI, plan to OD on benadryl or cut wrist with steam box tender. Pt text this to therapist and then showed up at the ED. Im not sure why they didnt take me serious and call and ambulance for me . Pt has OP providers but has not been on meds or followed up for several months. Pt reports aging out of their services and being told they might not qualify for adult services. Pt has a contentious relationship with mother, who is currently residing in a homeless halfway. Pt has dx of OCD, PTSD, bulemia and BPD. Skin check notable to self-inflicted scratch on left cheek. Pt did to themself while head banging while in the Pod. Pt reports they cant promise they wont self harm on the unit. Pt stating Id rather not be here. Id rather be living [place] the bridge. There no one is trying to force meds on me or make me eat . Pt did sign CV with CAW. Pt is very articulate but does not make eye contact during admission. They are cooperative but retire immediately to room, where they spend the rest of shift. They signed MELA for OP providers but for no friends or family at this time.
[2025-03-30 19:58] VITALS: BP 131/78; PULSE 106; RESP 16; TEMP 37.1; O2SAT 97
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
[2025-03-31 08:00] VITALS: BP 123/66; PULSE 92; RESP 16; TEMP 36.9; O2SAT 97
[2025-03-31 08:36] LABS: Cholesterol 159 mg/dL (<200); HDL Cholesterol 44 mg/dL (>40); Magnesium 1.9 mg/dL (1.6-2.6); Triglycerides 51 mg/dL (<150)
[2025-03-31 08:52] LABS: Free T4 (Free Thyroxine) 0.90 ng/dL (0.71-1.85); Thyroid Stimulating Hormone 0.63 uIU/mL (0.32-4.0)
[2025-03-31 09:04] LABS: Folate 10.9 ng/mL (> or = 4.0); Vitamin B12 393 pg/mL (200-900)
--- NOTE | 2025-03-31 12:03 | P.PNPSI_ITS ---
Subjective Subjective Date of Service: 03/31/25 Reason For Visit: Depression cannabis sedative abuse borderline pers Subjective Notes: Conditional Voluntary Healthcare Proxy: No Guardianship: No Medical Problems Affecting Mental Status: No Interim History: Discouraged with providers, treatment facilities, providers not hearing them. Discussed nutrition consult, they agree. Willing to trial medications with education-will provide resources. Unsure what they want, yet specific in some areas. Feels they cannot eat and that programs do not take their anorexia seriously. OCD sx are a priority, however, no meds which do not cause weight gain will be acceptable. Respite will require med and food compliance, not sure they can follow this. Engaged in discussion, will try to work within their specific parameters with compromise Medication Compliance: No Side effects from medications: No Attending Groups: No Review of Systems Acute medical concerns: No Medical Review of Systems: unchanged Review of Systems Review of Systems not identified Mental Status Exam Mental Status Exam Patient Appearance: Appropriate Patient Orientation: Person, Place, Time and Situation Level of Consciousness: Alert Patient Behavior: Talkative and Poor Eye Contact Mood Description: Depressed Affect Description: Flat Patient Cognition Impaired: No Ability to Follow Directions: Good Speech Pattern: Spontaneous Speech Memory Description: Intact Hallucinations: None (denied) Perceptual Disturbances: Depersonalization and Derealization Thought Process: Distracted and Rumination Thought Content: positive for Circumstantial, positive for Perseveration and positive for Suicidal Ideation Depressive Symptoms: Increased Anxiety, Diff. Making Decisions, Increased Irritability, Feelings of Worthlessness, Hopelessness, Isolating-Friends/Family, Unhappiness, Increased Fatigue, Thoughts of /Suicide, Low Self Esteem, Loss of Energy and Difficulty Concentrating Abnormal Motor Activity Signs and Symptoms: Restlessness Judgement: Fair Diagnostics Vital Signs (24Hr): Vital Signs - 24 hr 03/30/25 19:58 03/31/25 08:00 Temperature 98.8 F 98.5 F Pulse Rate 106 H 92 Respiratory Rate 16 16 Blood Pressure 131/78 123/66 Pulse Oximetry 97 97 Oxygen Delivery Method Room Air Room Air BMI result Body Mass Index 21.1 Labs 03/29/25 16:22 03/30/25 03:21 Labs: Laboratory Results - last 48 hr 03/29/25 03/29/25 03/29/25 16:22 20:12 20:13 WBC 6.1 RBC 4.43 Hgb 13.4 Hct 39.0 MCV 88.0 MCH 30.2 MCHC 34.4 RDW 12.5 Plt Count 240 MPV 10.9 Immature Gran % (Auto) 0.2 Neut % (Auto) 67.8 Lymph % (Auto) 27.3 [place] % (Auto) 4.0 Eos % (Auto) 0.0 Baso % (Auto) 0.7 Lymph # (Auto) 1.7 [place] # (Auto) 0.2 Eos # (Auto) 0.0 Baso # (Auto) 0.0 Abs Immat Gran (auto) 0.01 Absolute Neuts (auto) 4.1 Absolute Nucleated RBC 0.000 Nucleated RBC % (auto) 0.0 Sodium 137 Potassium 2.9 L* Chloride 105 Carbon Dioxide 25 Anion Gap 10 L BUN 11 Creatinine 0.69 Estim Creat Clear Calc 126.7 Estimated GFR > 60 Random Glucose 75 Estimat Average Glucose Hemoglobin A1c % Calcium 9.5 D Phosphorus 3.2 Magnesium 1.8 Total Bilirubin 0.7 AST 25 ALT 18 Alkaline Phosphatase 61 Total Protein 7.4 Albumin 4.5 Triglycerides Cholesterol LDL Cholesterol, Calc HDL Cholesterol Vitamin B12 Folate TSH Free T4 Urine Color Dark Yellow Urine Appearance Clear Urine pH 5.5 Ur Specific [place] >= 1.030 H Urine Protein Trace Urine Glucose (UA) Negative Urine Ketones 40 Urine Blood Negative Urine Nitrite Negative Ur Leukocyte Esterase Trace H Urine RBC 0-2 Urine WBC 0-5 Ur Squamous Epith Cells 0-2 Calcium Oxalate Crystal Present Urine Bacteria Trace Hyaline Casts 0-2 Urine Test NEGATIVE Salicylates < 5.0 L Urine Opiates Screen Not Detected Ur Buprenorphine Scrn Not Detected Ur Oxycodone Screen Not Detected Urine Methadone Screen Not Detected Urine Fentanyl Screen Not Detected Acetaminophen < 3 Ur Barbiturates Screen Not Detected Ur Phencyclidine Scrn Not Detected Ur Amphetamines Screen Not Detected U Benzodiazepines Scrn Not Detected Urine Cocaine Screen Not Detected U Marijuana (THC) Screen POSITIVE H Ethyl Alcohol < 10 COVID-19 (LEDY) Negative COVID-19 Clin Com See Note 03/30/25 03/31/25 03:21 08:00 WBC RBC Hgb Hct MCV MCH MCHC RDW Plt Count MPV Immature Gran % (Auto) Neut % (Auto) Lymph % (Auto) [place] % (Auto) Eos % (Auto) Baso % (Auto) Lymph # (Auto) [place] # (Auto) Eos # (Auto) Baso # (Auto) Abs Immat Gran (auto) Absolute Neuts (auto) Absolute Nucleated RBC Nucleated RBC % (auto) Sodium 141 Potassium 3.4 Chloride 110 H Carbon Dioxide 21 L Anion Gap 13 BUN 11 Creatinine 0.60 Estim Creat Clear Calc 145.8 Estimated GFR > 60 Random Glucose 84 Estimat Average Glucose Cancelled Hemoglobin A1c % Cancelled Calcium 9.0 Phosphorus Magnesium 1.9 Total Bilirubin AST ALT Alkaline Phosphatase Total Protein Albumin Triglycerides 51 Cholesterol 159 LDL Cholesterol, Calc 105 H HDL Cholesterol 44 Vitamin B12 393 Folate 10.9 TSH 0.63 Free T4 0.90 Urine Color Urine Appearance Urine pH Ur Specific [place] Urine Protein Urine Glucose (UA) Urine Ketones Urine Blood Urine Nitrite Ur Leukocyte Esterase Urine RBC Urine WBC Ur Squamous Epith Cells Calcium Oxalate Crystal Urine Bacteria Hyaline Casts Urine Test Salicylates Urine Opiates Screen Ur Buprenorphine Scrn Ur Oxycodone Screen Urine Methadone Screen Urine Fentanyl Screen Acetaminophen Ur Barbiturates Screen Ur Phencyclidine Scrn Ur Amphetamines Screen U Benzodiazepines Scrn Urine Cocaine Screen U Marijuana (THC) Screen Ethyl Alcohol COVID-19 (LEDY) COVID-19 Clin Com Medications Medications Current Medications Acetaminophen (Acetaminophen 325 Mg Tablet) 650 mg PO Q6H PRN PRN Reason: Headache/Pain, Scale 1-10 Al Hydroxide/Mg Hydroxide (Magnesium Hydrox/Alum Hydrox 30 Ml Oral.Susp) 30 ml PO Q6H PRN PRN Reason: Heartburn/Nausea Hydroxyzine HCl (Hydroxyzine Hcl 25 Mg Tablet) 25 mg PO Q6H PRN PRN Reason: mild anxiety Nicotine Polacrilex (Nicotine Polacrilex 2 Mg Gum) 4 mg BUCCAL Q2H PRN PRN Reason: Nicotine Cravings Last Admin: 03/31/25 11:06 Dose: 4 mg Olanzapine (Olanzapine 5 Mg Tablet) 5 mg PO Q4H PRN PRN Reason: agitation Trazodone HCl (Trazodone Hcl 50 Mg Tablet) 50 mg PO BEDTIME MRX1 PRN PRN Reason: Insomnia Allergies Allergies Allergy/AdvReac Type Severity Reaction Status Date / Time No Known Allergies Allergy Verified 03/29/25 15:51 Assessment & Plan Assessment & Plan (1) Borderline personality disorder: Status: Acute Code(s): F60.3 - Borderline personality disorder (2) PTSD (post-traumatic stress disorder): Status: Acute Code(s): F43.10 - Post-traumatic stress disorder, unspecified (3) OCD (obsessive compulsive disorder): Status: Acute Code(s): F42.9 - Obsessive-compulsive disorder, unspecified (4) Suicidal ideation: Status: Acute Code(s): R45.851 - Suicidal ideations (5) Bulimia: Status: Acute Code(s): F50.2 - Bulimia nervosa Plan HPI: Patient is a 19 years old female to male [place] speaking person goes by he him pronouns with hx of OCD, PTSD, BPD, Bulimia who self presented to [facility] [place] his therapist-Maki secondary to texting her that he wanted to kill himself I'm on my way to commit suicide. I have a box annealer and a bother of Benadryl and I am looking for secluded place to kill myself . Precipitants: Patient reports that he had team meeting today with his [facility] therapist, Maki and [facility] worker. Patient reportedly became upset secondary to fighting that he will be transitioning to adult [facility] at this time. Also increase in depression secondary to be homeless since December and not currently prescribed psych medications. Recently cutting as well secondary to emotional pain. Reports taking extra laxative and eating only 1 snack per day in an attempt to lose weight. However also agrees that this and the cut are self-harm behaviors. Not able to assess regarding SIB or recent cuts. Is not interested in medication at this time. Formulation/clinical reasoning: SI with multiple plans, SIB via cut, cut down on food- Eating D/O, irritable,guarded, not on meds, increased in anxiety and irritable mood, guarded, increasing stress due to transition into adult [facility] services, currently is homeless, overuse/abuse to laxative and OTC Benadryl, trouble sleeping and poor appetite.. Hx of OCD, PTSD, BPD, Bulimia. Given the above information. Patient would benefit in restrictive environment his own safety, possible medication management, and refer patient back to community for psychiatric services as aftercare Hospital course: 03/30/25: PRN per protocol. Not current on meds. Not interested in starting neither. Monitor for meal intake. hx of Eating d/o- Bulimia. 03/31: Attempt alliance Plan Patient on 5 minute checks for safety. Admitted to . CV. Work with treatment team to do collateral Potasium on 03/29 2.9. Recheck on 03/30 3.4. Hcg Negative. U/A unremarkable. Utox +THC, BAL negative. Patient educated on: medication risk/benefits Informed Consent: understands Reason for continued inpatient stay Substantial Risk for: harm to self and rapid decompensation Time Spent With Patient Time: Total time managing care of this patient today ____ minutes.
--- NOTE | 2025-03-31 20:17 | PC.NURSE ---
At approxately 1954, this patient was discovered to have superficially self injured their left forearm with what they state was a broken piece of something, likely part of a fork that they secreted in their sock. Although the wounds are superficial, they cover nearly the entirety of the left forearm, inner and outer aspect. Patient was put 1:1 at that time and continues on 1:1 at this time.
[2025-03-31] MEDS: diazePAM 10 MG/2 ML CARTRIDGE IM (21:10)
--- NOTE | 2025-03-31 21:19 | HO.BHRESTREX ---
Behavioral Restraint Exam Behavioral Health Restraint Exam Type of Restraint: Physical Hold and Medication Reason for Restraint: Substantial Risk and Occurrence of self-harming or suicidal behavior as evidenced by: (cutting on left arm with razer found in their sock) Medical Concerns for Restraint: No medical concerns, pt w/o acute inj / no noted resp/VS abnormalities If exam took place greater than one hour after restraint please explain:: N/A Behavioral Assessment / Plan: Concerns / further recommendations, explain below: (Place on 1 observation) Comment: Patient was assessed face to face within an hour of R/S
--- NOTE | 2025-03-31 21:23 | HO.PSYEVENT ---
Documented by User: Princess Knapp NP 03/31/25 21:45 Event Note Date of Service: 03/31/25 Psych Restraint Event Note: Nursing notified provider regarding self harm behaviors 1954 via cutting left arm with a razor found in their sock. Patient placed on 1-1 observation for safety. Continue to self harm after giving up the razor with their finger nails/fingers to the areas that was cut with fresh blood. Patient was not able to stop, and not respond to other interventions. Place on physical hold by 2034, Refused PO medications. Patient continues to arguing, not agree with meds as they believe medication will not do nothing for me . Patient is restless, irritable, shaking legs constantly, poor eye contact, head down sitting in toilet with 1-1. Agreed with IM medication at the end without resistant. Security presented to support, given very clear instruction, patient walked out of bathroom by their own. Given Stat IM of Haldol 10x1 , Valium 10mgx1,and Benadryl 50mg x1 by 2009 to prevent further serious self destructive behaviors. Reason for cutting: it is my OCD but does not want to treatment. This provider assessed patient face to face within an hour of restraint. Lots of cut stevenson with fresh blood on observed during assessment. Razor handed to staff. Patient continues to be on 1-1 for safety. No injuries to staff. Nursing staff continues to provide emotional support and VSs. Notify provider if there are any safety concerns. Time Spent With Patient Time: Total time managing care of this patient today ____ minutes. Documented by User: Emilio Bunch MD 04/05/25 11:59 Event Note Date of Service: 04/05/25
--- NOTE | 2025-03-31 22:15 | PC.NURSE ---
Late documentation. This patient was put in a physical hold at approximately 2024, as the patient was found to be self harming their left forearm,and further harm had to be prevented. They were made a 1:1 at that time. It was initially thought that the patient had part of a fork. At approximately 2104, with provider Princess Knapp and security present as well as this typewriter operator automatic, the patient surrendered a small razor blade [approximately 2 cm,] which appeared to be from a hand held pencil sharpener. The patient states this was in their sock. At approximately 2109, the patient voluntarily accepted IM medications. They continue on a 1:1 status. The left forearm has gauze pads in place.
[2025-04-01 07:00] VITALS: BMI 28.3
[2025-04-01 08:49] VITALS: BP 115/84; PULSE 90; RESP 16; TEMP 36.6; O2SAT 95
--- NOTE | 2025-04-01 12:45 | HO.PSYCHPN ---
Subjective Subjective Date of Service: 04/01/25 Reason For Visit: Depression cannabis sedative abuse borderline pers Subjective Notes: Conditional Voluntary Healthcare Proxy: No Guardianship: No Medical Problems Affecting Mental Status: No Interim History: Pt now on one to one. Pt had contraband in their sock- a razor from a small pencil sharpener. Numerous superficial cuts to their arm-no sutures required, cleansed, treated and bandaged with daily dressing changes. It is the OCD-if I did not do it something bad would have happened I could not risk this . Discussed medications-Lamictal trial has occurred with adverse effects by history. Geodon they will consider- will provide printed literature. Will offer a prn if they choose for this evening. In the milieu, social with peers and with some relief appearing at times. Medication Compliance: No (working with options) Side effects from medications: No Attending Groups: Intermittent Review of Systems Acute medical concerns: No Medical Review of Systems: unchanged Review of Systems Review of Systems no Mental Status Exam Mental Status Exam Patient Appearance: Appropriate Patient Orientation: Person, Place, Time and Situation Level of Consciousness: Alert Patient Behavior: Talkative and Poor Eye Contact Mood Description: Depressed Affect Description: Flat Patient Cognition Impaired: No Ability to Follow Directions: Good Speech Pattern: Spontaneous Speech Memory Description: Intact Hallucinations: None (denied) Perceptual Disturbances: Depersonalization and Derealization Thought Process: Distracted and Rumination Thought Content: positive for Circumstantial, positive for Perseveration and positive for Suicidal Ideation Depressive Symptoms: Increased Anxiety, Diff. Making Decisions, Increased Irritability, Feelings of Worthlessness, Hopelessness, Isolating-Friends/Family, Unhappiness, Increased Fatigue, Thoughts of /Suicide, Low Self Esteem, Loss of Energy and Difficulty Concentrating Abnormal Motor Activity Signs and Symptoms: Restlessness Judgement: Fair Diagnostics Vital Signs (24Hr): Vital Signs - 24 hr 04/01/25 08:49 Temperature 97.9 F Pulse Rate 90 Respiratory Rate 16 Blood Pressure 115/84 Pulse Oximetry 95 Oxygen Delivery Method Room Air BMI result Body Mass Index 28.3 Labs 03/29/25 16:22 03/30/25 03:21 Labs: Laboratory Results - last 48 hr 03/31/25 08:00 Estimat Average Glucose Cancelled Hemoglobin A1c % Cancelled Magnesium 1.9 Triglycerides 51 Cholesterol 159 LDL Cholesterol, Calc 105 H HDL Cholesterol 44 Vitamin B12 393 Folate 10.9 TSH 0.63 Free T4 0.90 Medications Medications Current Medications Acetaminophen (Acetaminophen 325 Mg Tablet) 650 mg PO Q6H PRN PRN Reason: Headache/Pain, Scale 1-10 Al Hydroxide/Mg Hydroxide (Magnesium Hydrox/Alum Hydrox 30 Ml Oral.Susp) 30 ml PO Q6H PRN PRN Reason: Heartburn/Nausea Bacitracin (Bacitracin Oint 14 Gm Tube) 1 appl TOPICAL TID CARMINA; Protocol Last Admin: 04/01/25 09:57 Dose: 1 appl Hydroxyzine HCl (Hydroxyzine Hcl 25 Mg Tablet) 25 mg PO Q6H PRN PRN Reason: mild anxiety Nicotine Polacrilex (Nicotine Polacrilex 2 Mg Gum) 4 mg BUCCAL Q2H PRN PRN Reason: Nicotine Cravings Last Admin: 04/01/25 09:43 Dose: 4 mg Olanzapine (Olanzapine 5 Mg Tablet) 5 mg PO Q4H PRN PRN Reason: agitation Trazodone HCl (Trazodone Hcl 50 Mg Tablet) 50 mg PO BEDTIME MRX1 PRN PRN Reason: Insomnia Allergies Allergies Allergy/AdvReac Type Severity Reaction Status Date / Time No Known Allergies Allergy Verified 03/29/25 15:51 Assessment & Plan Assessment & Plan (1) Borderline personality disorder: Status: Acute Code(s): F60.3 - Borderline personality disorder (2) PTSD (post-traumatic stress disorder): Status: Acute Code(s): F43.10 - Post-traumatic stress disorder, unspecified (3) OCD (obsessive compulsive disorder): Status: Acute Code(s): F42.9 - Obsessive-compulsive disorder, unspecified (4) Suicidal ideation: Status: Acute Code(s): R45.851 - Suicidal ideations (5) Bulimia: Status: Acute Code(s): F50.2 - Bulimia nervosa Plan HPI: Patient is a 19 years old female to male Montserratian speaking person goes by he him pronouns with hx of OCD, PTSD, BPD, Bulimia who self presented to [facility] with his therapist-Maki secondary to texting her that he wanted to kill himself I'm on my way to commit suicide. I have a box finisher and a bother of Benadryl and I am looking for secluded place to kill myself . Precipitants: Patient reports that he had team meeting today with his [facility] therapist, Maki and [facility] worker. Patient reportedly became upset secondary to fighting that he will be transitioning to adult [facility] at this time. Also increase in depression secondary to be homeless since December and not currently prescribed psych medications. Recently cutting as well secondary to emotional pain. Reports taking extra laxative and eating only 1 snack per day in an attempt to lose weight. However also agrees that this and the cut are self-harm behaviors. Not able to assess regarding SIB or recent cuts. Is not interested in medication at this time. Formulation/clinical reasoning: SI with multiple plans, SIB via cut, cut down on food- Eating D/O, irritable,guarded, not on meds, increased in anxiety and irritable mood, guarded, increasing stress due to transition into adult [facility] services, currently is homeless, overuse/abuse to laxative and OTC Benadryl, trouble sleeping and poor appetite.. Hx of OCD, PTSD, BPD, Bulimia. Given the above information. Patient would benefit in restrictive environment his own safety, possible medication management, and refer patient back to community for psychiatric services as aftercare Hospital course: 03/30/25: PRN per protocol. Not current on meds. Not interested in starting neither. Monitor for meal intake. hx of Eating d/o- Bulimia. 04/01 Geodon 20 mg prn Nutritional consult Plan Patient on 5 minute checks for safety. Admitted to M5. CV. Work with treatment team to do collateral Potasium on 03/29 2.9. Recheck on 03/30 3.4. Hcg Negative. U/A unremarkable. Utox +THC, BAL negative. Reason for continued inpatient stay Substantial Risk for: harm to self and rapid decompensation Time Spent With Patient Time: Total time managing care of this patient today ____ minutes.
[2025-04-01 20:00] VITALS: BP 132/75; PULSE 100; RESP 16; TEMP 36.8; O2SAT 100
[2025-04-02 08:00] VITALS: BP 139/63; PULSE 106; RESP 16; TEMP 36.8; O2SAT 100
--- NOTE | 2025-04-02 09:54 | P.PNPSI_ITS ---
Subjective Subjective Date of Service: 04/02/25 Reason For Visit: Depression cannabis sedative abuse borderline pers Subjective Notes: Conditional Voluntary Healthcare Proxy: No Guardianship: No Medical Problems Affecting Mental Status: No Interim History: Mare off one to one this evening. They are able to safety plan and asks for this change to five minute checks. They are pre-contemplative regarding initiating a screen for Yamilet-they have been talking today to their [facility] care team and is nearing a plan to do this. They are reviewing literature on Geodon, Venlafaxine, Trintellix. Geodon prn is ordered. Improved eye contact in one to one. Visable in milieu, and appears to be working on alliances. They continue to restrict, only drinking coffee. Medication Compliance: No Side effects from medications: No Attending Groups: Yes Review of Systems Acute medical concerns: No Medical Review of Systems: unchanged Review of Systems Review of Systems They deny today Mental Status Exam Mental Status Exam Patient Appearance: Appropriate Patient Orientation: Person, Place, Time and Situation Level of Consciousness: Alert Patient Behavior: Talkative and Poor Eye Contact Mood Description: Depressed Affect Description: Flat Patient Cognition Impaired: No Ability to Follow Directions: Good Speech Pattern: Spontaneous Speech Memory Description: Intact Hallucinations: None (denied) Perceptual Disturbances: Depersonalization and Derealization Thought Process: Distracted and Rumination Thought Content: positive for Circumstantial, positive for Perseveration and positive for Suicidal Ideation Depressive Symptoms: Increased Anxiety, Diff. Making Decisions, Increased Irritability, Feelings of Worthlessness, Hopelessness, Isolating-Friends/Family, Unhappiness, Increased Fatigue, Thoughts of /Suicide, Low Self Esteem, Loss of Energy and Difficulty Concentrating Abnormal Motor Activity Signs and Symptoms: Restlessness Judgement: Fair Diagnostics Vital Signs (24Hr): Vital Signs - 24 hr 04/01/25 20:00 04/02/25 08:00 Temperature 98.2 F 98.2 F Pulse Rate 100 106 H Respiratory Rate 16 16 Blood Pressure 132/75 139/63 Pulse Oximetry 100 100 Oxygen Delivery Method Room Air Room Air BMI result Body Mass Index 28.3 Labs 03/29/25 16:22 03/30/25 03:21 Labs: Laboratory Results - last 48 hr 03/31/25 08:00 Estimat Average Glucose Cancelled Hemoglobin A1c % Cancelled Medications Medications Current Medications Acetaminophen (Acetaminophen 325 Mg Tablet) 650 mg PO Q6H PRN PRN Reason: Headache/Pain, Scale 1-10 Al Hydroxide/Mg Hydroxide (Magnesium Hydrox/Alum Hydrox 30 Ml Oral.Susp) 30 ml PO Q6H PRN PRN Reason: Heartburn/Nausea Bacitracin (Bacitracin Oint 14 Gm Tube) 1 appl TOPICAL TID CARMINA; Protocol Last Admin: 04/01/25 20:56 Dose: Not Given Hydroxyzine HCl (Hydroxyzine Hcl 25 Mg Tablet) 25 mg PO Q6H PRN PRN Reason: mild anxiety Nicotine Polacrilex (Nicotine Polacrilex 2 Mg Gum) 4 mg BUCCAL Q2H PRN PRN Reason: Nicotine Cravings Last Admin: 04/02/25 08:48 Dose: 4 mg Olanzapine (Olanzapine 5 Mg Tablet) 5 mg PO Q4H PRN PRN Reason: agitation Trazodone HCl (Trazodone Hcl 50 Mg Tablet) 50 mg PO BEDTIME MRX1 PRN PRN Reason: Insomnia Ziprasidone (Ziprasidone 20 Mg Capsule) 20 mg PO DAILY PRN PRN Reason: agitation, dissociation, ptsd grounding Allergies Allergies Allergy/AdvReac Type Severity Reaction Status Date / Time No Known Allergies Allergy Verified 03/29/25 15:51 Assessment & Plan Assessment & Plan (1) Borderline personality disorder: Status: Acute Code(s): F60.3 - Borderline personality disorder (2) PTSD (post-traumatic stress disorder): Status: Acute Code(s): F43.10 - Post-traumatic stress disorder, unspecified (3) OCD (obsessive compulsive disorder): Status: Acute Code(s): F42.9 - Obsessive-compulsive disorder, unspecified (4) Suicidal ideation: Status: Acute Code(s): R45.851 - Suicidal ideations (5) Bulimia: Status: Acute Code(s): F50.2 - Bulimia nervosa Plan HPI: Patient is a 19 years old female to male Slovak speaking person goes by he him pronouns with hx of OCD, PTSD, BPD, Bulimia who self presented to [facility] [place] with his therapist-Maki secondary to texting her that he wanted to kill himself I'm on my way to commit suicide. I have a box car loader and a bother of Benadryl and I am looking for secluded place to kill myself . Precipitants: Patient reports that he had team meeting today with his [facility] therapist, Maki and [facility] worker. Patient reportedly became upset secondary to fighting that he will be transitioning to adult [facility] at this time. Also increase in depression secondary to be homeless since December and not currently prescribed psych medications. Recently cutting as well secondary to emotional pain. Reports taking extra laxative and eating only 1 snack per day in an attempt to lose weight. However also agrees that this and the cut are self-harm behaviors. Not able to assess regarding SIB or recent cuts. Is not interested in medication at this time. Formulation/clinical reasoning: SI with multiple plans, SIB via cut, cut down on food- Eating D/O, irritable,guarded, not on meds, increased in anxiety and irritable mood, guarded, increasing stress due to transition into adult [facility] services, currently is homeless, overuse/abuse to laxative and OTC Benadryl, trouble sleeping and poor appetite.. Hx of OCD, PTSD, BPD, Bulimia. Given the above information. Patient would benefit in restrictive environment his own safety, possible medication management, and refer patient back to community for psychiatric services as aftercare Hospital course: 03/30/25: PRN per protocol. Not current on meds. Not interested in starting neither. Monitor for meal intake. hx of Eating d/o- Bulimia. 04/01 Geodon 20 mg prn Nutritional consult 04/02 Continue to attempt treatment alliance Plan Patient on 5 minute checks for safety. Admitted to M5. CV. Work with treatment team to do collateral Potasium on 03/29 2.9. Recheck on 03/30 3.4. Hcg Negative. U/A unremarkable. Utox +THC, BAL negative. Reason for continued inpatient stay Substantial Risk for: rapid decompensation Time Spent With Patient Time: Total time managing care of this patient today ____ minutes.
--- NOTE | 2025-04-02 14:03 | MHC.CLN ---
CONSULT NUTRITION CONSULT FOR ANOREXIA AND OCD. REVIEW OF WEIGHT HX SHOWS WEIGHT OVERALL STABLE X 4 MONTHS. SUSPECT WEIGHT ON 03/29=61.2 KG INCORRECT WEIGHT 04/01=82.1 KG IN LINE WITH MOST RECENT WEIGHTS. PATIENT WITH BEHAVIORAL ISSUES AT THIS TIME, INCLUDING SELF HARM. PLEASE CONSULT RD IF NUTRITION DOES NOT IMPROVE BEHAVIOR STABILIZE.
[2025-04-02 20:00] VITALS: BP 120/62; PULSE 92; TEMP 37; O2SAT 100
[2025-04-03 08:00] VITALS: BP 110/56; PULSE 107; RESP 18; TEMP 36.4; O2SAT 100
--- NOTE | 2025-04-03 11:28 | P.PNPSI_ITS ---
Subjective Subjective Date of Service: 04/03/25 Reason For Visit: Depression cannabis sedative abuse borderline pers Interim History: Met with patient; discussed with team; reviewed chart Discussed medications and patient says the only thing they want is medication for OCD but still deciding what to do about it and does not want to start a medication at this time; very concerned about weight gain. Also discussed wanting to get back on a Depo Provera shot and needs help getting a PCP. Patient then came up and asked data analyst report writer for MiraLax b.i.d. which they say they take it home Mental Status Exam Mental Status Exam Patient Appearance: Well Grooomed (blue dyed hair) and Appropriate Patient Orientation: Person, Place, Time and Situation Level of Consciousness: Awake, Appropriate and Alert Patient Behavior: Talkative and Resistive to Care Behavior Comments: Some eye contact Mood Description: Depressed Affect Description: Constricted Patient Cognition Impaired: No Ability to Follow Directions: Fair Speech Pattern: Spontaneous Speech Memory Description: Intact Hallucinations: None (denied) Perceptual Disturbances: Depersonalization and Derealization Thought Process: Goal Oriented Thought Content: positive for Circumstantial, positive for Perseveration and positive for Suicidal Ideation (Which is chronic) Judgement and Insight: Impaired Diagnostics Vital Signs (24Hr): Vital Signs - 24 hr 04/02/25 20:00 04/03/25 08:00 Temperature 98.6 F 97.5 F Pulse Rate 92 107 H Respiratory Rate 18 Blood Pressure 120/62 110/56 L Pulse Oximetry 100 100 Oxygen Delivery Method Room Air Room Air BMI result Body Mass Index 28.3 Labs 03/29/25 16:22 03/30/25 03:21 Medications Medications Current Medications Acetaminophen (Acetaminophen 325 Mg Tablet) 650 mg PO Q6H PRN PRN Reason: Headache/Pain, Scale 1-10 Al Hydroxide/Mg Hydroxide (Magnesium Hydrox/Alum Hydrox 30 Ml Oral.Susp) 30 ml PO Q6H PRN PRN Reason: Heartburn/Nausea Bacitracin (Bacitracin Oint 14 Gm Tube) 1 appl TOPICAL TID [facility]; Protocol Last Admin: 04/03/25 09:48 Dose: Not Given Hydroxyzine HCl (Hydroxyzine Hcl 25 Mg Tablet) 25 mg PO Q6H PRN PRN Reason: mild anxiety Nicotine Polacrilex (Nicotine Polacrilex 2 Mg Gum) 4 mg BUCCAL Q2H PRN PRN Reason: Nicotine Cravings Last Admin: 04/03/25 08:37 Dose: 4 mg Olanzapine (Olanzapine 5 Mg Tablet) 5 mg PO Q4H PRN PRN Reason: agitation Trazodone HCl (Trazodone Hcl 50 Mg Tablet) 50 mg PO BEDTIME MRX1 PRN PRN Reason: Insomnia Ziprasidone (Ziprasidone 20 Mg Capsule) 20 mg PO DAILY PRN PRN Reason: agitation, dissociation, ptsd grounding Allergies Allergies Allergy/AdvReac Type Severity Reaction Status Date / Time No Known Allergies Allergy Verified 03/29/25 15:51 Assessment & Plan Assessment & Plan (1) Borderline personality disorder: Status: Acute Code(s): F60.3 - Borderline personality disorder (2) PTSD (post-traumatic stress disorder): Status: Acute Code(s): F43.10 - Post-traumatic stress disorder, unspecified (3) OCD (obsessive compulsive disorder): Status: Acute Code(s): F42.9 - Obsessive-compulsive disorder, unspecified (4) Suicidal ideation: Status: Acute Code(s): R45.851 - Suicidal ideations (5) Bulimia: Status: Acute Code(s): F50.2 - Bulimia nervosa Plan HPI: Patient is a 19 years old female to male Urdu speaking person goes by he him pronouns with hx of OCD, PTSD, BPD, Bulimia who self presented to [facility] with his therapist-Maki secondary to texting her that he wanted to kill himself I'm on my way to commit suicide. I have a experimental box tester and a bother of Benadryl and I am looking for secluded place to kill myself . Precipitants: Patient reports that he had team meeting today with his [facility] therapist, Maki and [facility] worker. Patient reportedly became upset secondary to fighting that he will be transitioning to adult [facility] at this time. Also increase in depression secondary to be homeless since December and not currently prescribed psych medications. Recently cutting as well secondary to emotional pain. Reports taking extra laxative and eating only 1 snack per day in an attempt to lose weight. However also agrees that this and the cut are self-harm behaviors. Not able to assess regarding SIB or recent cuts. Is not interested in medication at this time. Formulation/clinical reasoning: SI with multiple plans, SIB via cut, cut down on food- Eating D/O, irritable,guarded, not on meds, increased in anxiety and irritable mood, guarded, increasing stress due to transition into adult [facility] services, currently is homeless, overuse/abuse to laxative and OTC Benadryl, trouble sleeping and poor appetite.. Hx of OCD, PTSD, BPD, Bulimia. Given the above information. Patient would benefit in restrictive environment his own safety, possible medication management, and refer patient back to community for psychiatric services as aftercare Hospital course: 03/30/25: PRN per protocol. Not current on meds. Not interested in starting neither. Monitor for meal intake. hx of Eating d/o- Bulimia. 04/01 Geodon 20 mg prn Nutritional consult 04/02 Continue to attempt treatment alliance 04/03 Discussed medications and patient says the only thing they want is medication for OCD but still deciding what to do about it and does not want to start a medication at this time; very concerned about weight gain. Also discussed wanting to get back on a Depo Provera shot and needs help getting a PCP. Patient then came up and asked data analyst report writer for MiraLax b.i.d. which they say they take it home -nursing later came up to data analyst report writer and explained that regarding patient's eating disorder, since coming to the unit has not been eating much of anything at all, which would be the reason for absence of bowel movement rather than constipation; question MiraLax b.i.d. scheduled given that patient has a history of attempting to purge. Patient got 1 dose but data analyst report writer decided to hold MiraLax for now for this reason Plan Patient on 5 minute checks for safety. Admitted to M5. CV. Work with treatment team to do collateral Potasium on 03/29 2.9. Recheck on 03/30 3.4. Hcg Negative. U/A unremarkable. Utox +THC, BAL negative. Patient educated on: diagnosis and medication risk/benefits Informed Consent: understands Reason for continued inpatient stay Substantial Risk for: stable for discharge and rapid decompensation Time Spent With Patient Time: Total time managing care of this patient today ____ minutes.
[2025-04-03 20:00] VITALS: BP 124/57; PULSE 100; RESP 16; TEMP 36.3; O2SAT 98
[2025-04-04 08:00] VITALS: BP 118/63; PULSE 81; RESP 18; TEMP 36.7; O2SAT 98
--- NOTE | 2025-04-04 16:58 | P.PNPSI_ITS ---
Subjective Subjective Date of Service: 04/04/25 Reason For Visit: Depression cannabis sedative abuse borderline pers Interim History: With patient; discussed with team Patient wanted to talk about medications. General Passenger Agent reviewed venlafaxine, Intuniv and patient asked some questions but mostly talked about how anxious they were regarding medication trials. Patient appeared a little hypomanic, rambling a little difficult to interrupt. Ultimately they decided they want ready to start a medication and wants to think about it more Mental Status Exam Mental Status Exam Patient Appearance: Well Grooomed (blue dyed hair) and Appropriate Patient Orientation: Person, Place, Time and Situation Level of Consciousness: Awake, Appropriate and Alert Patient Behavior: Talkative and Resistive to Care Behavior Comments: Some eye contact Mood Description: Depressed Affect Description: Constricted Patient Cognition Impaired: No Ability to Follow Directions: Fair Speech Pattern: Spontaneous Speech Memory Description: Intact Hallucinations: None (denied) Perceptual Disturbances: Depersonalization and Derealization Thought Process: Goal Oriented Thought Content: positive for Circumstantial, positive for Perseveration and positive for Suicidal Ideation (Which is chronic) Judgement and Insight: Impaired Diagnostics Vital Signs (24Hr): Vital Signs - 24 hr 04/03/25 20:00 04/04/25 08:00 Temperature 97.4 F 98.1 F Pulse Rate 100 81 Respiratory Rate 16 18 Blood Pressure 124/57 L 118/63 Pulse Oximetry 98 98 Oxygen Delivery Method Room Air Room Air BMI result Body Mass Index 28.3 Labs 03/29/25 16:22 03/30/25 03:21 Medications Medications Current Medications Acetaminophen (Acetaminophen 325 Mg Tablet) 650 mg PO Q6H PRN PRN Reason: Headache/Pain, Scale 1-10 Al Hydroxide/Mg Hydroxide (Magnesium Hydrox/Alum Hydrox 30 Ml Oral.Susp) 30 ml PO Q6H PRN PRN Reason: Heartburn/Nausea Hydroxyzine HCl (Hydroxyzine Hcl 25 Mg Tablet) 25 mg PO Q6H PRN PRN Reason: mild anxiety Nicotine Polacrilex (Nicotine Polacrilex 2 Mg Gum) 4 mg BUCCAL Q2H PRN PRN Reason: Nicotine Cravings Last Admin: 04/04/25 15:32 Dose: 4 mg Olanzapine (Olanzapine 5 Mg Tablet) 5 mg PO Q4H PRN PRN Reason: agitation Polyethylene Glycol (Polyethylene Glycol 3350 17 Gm Powd.Pack) 17 gm PO BID CARMINA Last Admin: 04/04/25 08:12 Dose: 17 gm Trazodone HCl (Trazodone Hcl 50 Mg Tablet) 50 mg PO BEDTIME MRX1 PRN PRN Reason: Insomnia Ziprasidone (Ziprasidone 20 Mg Capsule) 20 mg PO DAILY PRN PRN Reason: agitation, dissociation, ptsd grounding Allergies Allergies Allergy/AdvReac Type Severity Reaction Status Date / Time No Known Allergies Allergy Verified 03/29/25 15:51 Assessment & Plan Assessment & Plan (1) Borderline personality disorder: Status: Acute Code(s): F60.3 - Borderline personality disorder (2) PTSD (post-traumatic stress disorder): Status: Acute Code(s): F43.10 - Post-traumatic stress disorder, unspecified (3) OCD (obsessive compulsive disorder): Status: Acute Code(s): F42.9 - Obsessive-compulsive disorder, unspecified (4) Suicidal ideation: Status: Acute Code(s): R45.851 - Suicidal ideations (5) Bulimia: Status: Acute Code(s): F50.2 - Bulimia nervosa Plan HPI: Patient is a 19 years old female to male Vietnamese speaking person goes by he him pronouns with hx of OCD, PTSD, BPD, Bulimia who self [place] [facility] [place] therapist-Maki secondary to texting her that he wanted to kill himself I'm on my way to commit suicide. 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 Precipitants: Patient reports that he had team meeting today with his [facility] therapist, Maki and [facility] worker. Patient reportedly became upset secondary to fighting that he will be transitioning to adult [facility] at this time. Also increase in depression secondary to be homeless since December and not currently prescribed psych medications. Recently cutting as well secondary to emotional pain. Reports taking extra laxative and eating only 1 snack per day in an attempt to lose weight. However also agrees that this and the cut are self-harm behaviors. Not able to assess regarding SIB or recent cuts. Is not interested in medication at this time. Formulation/clinical reasoning: SI with multiple plans, SIB via cut, cut down food- Eating D/O, irritable,guarded, not on meds, increased in anxiety and irritable mood, guarded, increasing stress due to transition into adult [facility] services, currently is homeless, overuse/abuse to laxative and OTC Benadryl, trouble sleeping and poor appetite.. Hx of OCD, PTSD, BPD, Bulimia. Given the above information. Patient would benefit in restrictive environment his own safety, possible medication management, and refer patient back to community for psychiatric services as aftercare Hospital course: 03/30/25: PRN per protocol. Not current on meds. Not interested in starting neither. Monitor for meal intake. hx of Eating d/o- Bulimia. 04/01 Geodon 20 mg prn Nutritional consult 04/02 Continue to attempt treatment alliance 04/03 Discussed medications and patient says the only thing they want is medication for OCD but still deciding what to do about it and does not want to start a medication at this time; very concerned about weight gain. Also discussed wanting to get back on a Depo Provera shot and needs help getting a PCP. Patient then came up and asked commercial underwriter for MiraLax b.i.d. which they say they take it home -nursing later came up to commercial underwriter and explained that regarding patient's eating disorder, since coming to the unit has not been eating much of anything at all, which would be the reason for absence of bowel movement rather than constipation; question MiraLax b.i.d. scheduled given that patient has a history of attempting to purge. Patient got 1 dose but commercial underwriter decided to hold MiraLax for now for this reason 04/04 little hypomanic? or ADD? pt remains to anxious to choose a medication Plan Patient on 5 minute checks for safety. Admitted to [facility]. [facility]. Work with treatment team to do collateral Potasium on 03/29 2.9. Recheck on 03/30 3.4. Hcg Negative. U/A unremarkable. Utox +THC, BAL negative. Patient educated on: diagnosis and medication risk/benefits Informed Consent: understands Reason for continued inpatient stay Substantial Risk for: stable for discharge Time Spent With Patient Time: Total time managing care of this patient today ____ minutes.
[2025-04-04 20:00] VITALS: BP 129/60; PULSE 81; TEMP 36.6; O2SAT 100
[2025-04-05 08:00] VITALS: BP 96/54; PULSE 113; RESP 16; TEMP 36.1; O2SAT 99
--- NOTE | 2025-04-05 10:19 | P.PNPSI_ITS ---
Subjective Subjective Date of Service: 04/05/25 Reason For Visit: Depression cannabis sedative abuse borderline pers Interim History: Met with patient; discussed with team Patient agreed through much ambivalence to start Intuniv venlafaxine; patient wanted to start both of the same time understanding that it might be hard to differentiate if side effects, but feeling ready to embark. Mental Status Exam Mental Status Exam Patient Appearance: Well Grooomed (blue dyed hair) and Appropriate Patient Orientation: Person, Place, Time and Situation Level of Consciousness: Awake, Appropriate and Alert Patient Behavior: Talkative and Resistive to Care Behavior Comments: Some eye contact Mood Description: Depressed Affect Description: Constricted Patient Cognition Impaired: No Ability to Follow Directions: Fair Speech Pattern: Spontaneous Speech Memory Description: Intact Hallucinations: None (denied) Perceptual Disturbances: Depersonalization and Derealization Thought Process: Goal Oriented Thought Content: positive for Circumstantial, positive for Perseveration and positive for Suicidal Ideation (Which is chronic) Judgement and Insight: Impaired Diagnostics Vital Signs (24Hr): Vital Signs - 24 hr 04/04/25 20:00 Temperature 97.9 F Pulse Rate 81 Blood Pressure 129/60 Pulse Oximetry 100 Oxygen Delivery Method Room Air BMI result Body Mass Index 28.3 Labs 03/29/25 16:22 03/30/25 03:21 Medications Medications Current Medications Acetaminophen (Acetaminophen 325 Mg Tablet) 650 mg PO Q6H PRN PRN Reason: Headache/Pain, Scale 1-10 Al Hydroxide/Mg Hydroxide (Magnesium Hydrox/Alum Hydrox 30 Ml Oral.Susp) 30 ml PO Q6H PRN PRN Reason: Heartburn/Nausea Hydroxyzine HCl (Hydroxyzine Hcl 25 Mg Tablet) 25 mg PO Q6H PRN PRN Reason: mild anxiety Nicotine Polacrilex (Nicotine Polacrilex 2 Mg Gum) 4 mg BUCCAL Q2H PRN PRN Reason: Nicotine Cravings Last Admin: 04/05/25 08:12 Dose: 4 mg Olanzapine (Olanzapine 5 Mg Tablet) 5 mg PO Q4H PRN PRN Reason: agitation Polyethylene Glycol (Polyethylene Glycol 3350 17 Gm Powd.Pack) 17 gm PO BID CARMINA Last Admin: 04/05/25 08:12 Dose: 17 gm Trazodone HCl (Trazodone Hcl 50 Mg Tablet) 50 mg PO BEDTIME MRX1 PRN PRN Reason: Insomnia Ziprasidone (Ziprasidone 20 Mg Capsule) 20 mg PO DAILY PRN PRN Reason: agitation, dissociation, ptsd grounding Allergies Allergies Allergy/AdvReac Type Severity Reaction Status Date / Time No Known Allergies Allergy Verified 03/29/25 15:51 Assessment & Plan Assessment & Plan (1) Borderline personality disorder: Status: Acute Code(s): F60.3 - Borderline personality disorder (2) PTSD (post-traumatic stress disorder): Status: Acute Code(s): F43.10 - Post-traumatic stress disorder, unspecified (3) OCD (obsessive compulsive disorder): Status: Acute Code(s): F42.9 - Obsessive-compulsive disorder, unspecified (4) Suicidal ideation: Status: Acute Code(s): R45.851 - Suicidal ideations (5) Bulimia: Status: Acute Code(s): F50.2 - Bulimia nervosa Plan HPI: Patient is a 19 years old female to male Swedish speaking person goes by he him pronouns with hx of OCD, PTSD, BPD, Bulimia who self presented to [facility] [place] with his therapist-Maki secondary to texting her that he wanted to kill himself I'm on my way to commit suicide. 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 Precipitants: Patient reports that he had team meeting today with his [facility] therapist, Mkai and [facility] worker. Patient reportedly became upset secondary to fighting that he will be transitioning to adult [facility] at this time. Also increase in depression secondary to be homeless since December and not currently prescribed psych medications. Recently cutting as well secondary to emotional pain. Reports taking extra laxative and eating only 1 snack per day in an attempt to lose weight. However also agrees that this and the cut are self-harm behaviors. Not able to assess regarding SIB or recent cuts. Is not interested in medication at this time. Formulation/clinical reasoning: SI with multiple plans, SIB via cut, cut down food- Eating D/O, irritable,guarded, not on meds, increased in anxiety and irritable mood, guarded, increasing stress due to transition into adult [facility] services, currently is homeless, overuse/abuse to laxative and OTC Benadryl, trouble sleeping and poor appetite.. Hx of OCD, PTSD, BPD, Bulimia. Given the above information. Patient would benefit in restrictive environment his own safety, possible medication management, and refer patient back to community for psychiatric services as aftercare Hospital course: 03/30/25: PRN per protocol. Not current on meds. Not interested in starting neither. Monitor for meal intake. hx of Eating d/o- Bulimia. 04/01 Geodon 20 mg prn Nutritional consult 04/02 Continue to attempt treatment alliance 04/03 Discussed medications and patient says the only thing they want is medication for OCD but still deciding what to do about it and does not want to start a medication at this time; very concerned about weight gain. Also discussed wanting to get back on a Depo Provera shot and needs help getting a PCP. Patient then came up and asked keno writer for MiraLax b.i.d. which they say they take it home -nursing later came up to keno writer and explained that regarding patient's eating disorder, since coming to the unit has not been eating much of anything at all, which would be the reason for absence of bowel movement rather than constipation; question MiraLax b.i.d. scheduled given that patient has a history of attempting to purge. Patient got 1 dose but keno writer decided to hold MiraLax for now for this reason 04/04 little hypomanic? or ADD? pt remains to anxious to choose a medication 04/05 Patient agreed through much ambivalence to start Intuniv venlafaxine; patient wanted to start both of the same time understanding that it might be hard to differentiate if side effects, but feeling ready to embark. -start Intuniv 1 mg daily for executive function and anxiety -start venlafaxine ER 37.5 mg to address OCD Plan CV q15 -start Intuniv 1 mg daily for executive function and anxiety -start venlafaxine ER 37.5 mg to address OCD. Work with treatment team to do collateral Potasium on 03/29 2.9. Recheck on 03/30 3.4. Hcg Negative. U/A unremarkable. Utox +THC, BAL negative. Patient educated on: diagnosis and medication risk/benefits Informed Consent: understands Reason for continued inpatient stay Substantial Risk for: rapid decompensation Time Spent With Patient Time: Total time managing care of this patient today ____ minutes.
[2025-04-05] MEDS: Venlafaxine HCl ER 37.5 MG CAP.ER.24H PO (10:51)
[2025-04-05] MEDS: guanFACINE HCl ER 1 MG TAB.ER.24H PO (10:51)
[2025-04-05 20:00] VITALS: BP 125/69; PULSE 77; RESP 18; TEMP 36.9; O2SAT 99
[2025-04-06 07:46] VITALS: BP 127/79; PULSE 96; TEMP 36.3; O2SAT 100
[2025-04-06] MEDS: guanFACINE HCl ER 1 MG TAB.ER.24H PO (07:52)
[2025-04-06] MEDS: Venlafaxine HCl ER 37.5 MG CAP.ER.24H PO (07:52)
--- NOTE | 2025-04-06 11:39 | P.PNPSI_ITS ---
Subjective Subjective Date of Service: 04/06/25 Reason For Visit: Depression cannabis sedative abuse borderline pers Subjective Notes: Conditional Voluntary Healthcare Proxy: No Guardianship: No Medical Problems Affecting Mental Status: No Interim History: Accepted with [facility]. Team awaits date for transfer. Pt hopes for a second floor admit. Pt is taking meds, interacting with peers, and engaging in the milieu. No self injurious behaviors, however, I cannot eat. Discussed misdiagnosis of Bulimia. Previous diagnosis of Anorexia Restrictive. Discussed treatment expectations in moving forward. Review of accomplishments of current admit-improved safety, intake for eating disorders treatment, taking responsibility for treatment Medication Compliance: Yes Side effects from medications: No Attending Groups: Yes Review of Systems Acute medical concerns: No Medical Review of Systems: unchanged Review of Systems Review of Systems Restrictive intake Mental Status Exam Mental Status Exam Patient Appearance: Well Grooomed (blue dyed hair) and Appropriate Patient Orientation: Person, Place, Time and Situation Level of Consciousness: Awake, Appropriate and Alert Patient Behavior: Talkative Behavior Comments: Some eye contact Mood Description: Depressed Affect Description: Constricted Patient Cognition Impaired: No Ability to Follow Directions: Fair Speech Pattern: Spontaneous Speech Memory Description: Intact Hallucinations: None (denied) Perceptual Disturbances: Depersonalization and Derealization Thought Process: Goal Oriented Thought Content: positive for Circumstantial, positive for Perseveration and positive for Suicidal Ideation (Which is chronic) Judgement: Fair Judgement and Insight: Impaired Diagnostics Vital Signs (24Hr): Vital Signs - 24 hr 04/05/25 20:00 04/06/25 07:46 Temperature 98.4 F 97.3 F Pulse Rate 77 96 Respiratory Rate 18 Blood Pressure 125/69 127/79 Pulse Oximetry 99 100 Oxygen Delivery Method Room Air Room Air BMI result Body Mass Index 28.3 Labs 03/29/25 16:22 03/30/25 03:21 Medications Medications Current Medications Acetaminophen (Acetaminophen 325 Mg Tablet) 650 mg PO Q6H PRN PRN Reason: Headache/Pain, Scale 1-10 Al Hydroxide/Mg Hydroxide (Magnesium Hydrox/Alum Hydrox 30 Ml Oral.Susp) 30 ml PO Q6H PRN PRN Reason: Heartburn/Nausea Guanfacine HCl (Guanfacine Hcl Er 1 Mg Tab.Er.24h) 1 mg PO DAILY CARMINA Last Admin: 04/06/25 07:52 Dose: 1 mg Hydroxyzine HCl (Hydroxyzine Hcl 25 Mg Tablet) 25 mg PO Q6H PRN PRN Reason: mild anxiety Nicotine Polacrilex (Nicotine Polacrilex 2 Mg Gum) 4 mg BUCCAL Q2H PRN PRN Reason: Nicotine Cravings Last Admin: 04/06/25 11:09 Dose: 4 mg Olanzapine (Olanzapine 5 Mg Tablet) 5 mg PO Q4H PRN PRN Reason: agitation Polyethylene Glycol (Polyethylene Glycol 3350 17 Gm Powd.Pack) 17 gm PO BID [facility] Last Admin: 04/06/25 07:52 Dose: 17 gm Trazodone HCl (Trazodone Hcl 50 Mg Tablet) 50 mg PO BEDTIME MRX1 PRN PRN Reason: Insomnia Venlafaxine HCl (Venlafaxine Hcl Er 37.5 Mg Cap.Er.24h) 37.5 mg PO DAILY [facility] Last Admin: 04/06/25 07:52 Dose: 37.5 mg Ziprasidone (Ziprasidone 20 Mg Capsule) 20 mg PO DAILY PRN PRN Reason: agitation, dissociation, ptsd grounding Allergies Allergies Allergy/AdvReac Type Severity Reaction Status Date / Time No Known Allergies Allergy Verified 03/29/25 15:51 Assessment & Plan Assessment & Plan (1) Borderline personality disorder: Status: Acute Code(s): F60.3 - Borderline personality disorder (2) PTSD (post-traumatic stress disorder): Status: Acute Code(s): F43.10 - Post-traumatic stress disorder, unspecified (3) OCD (obsessive compulsive disorder): Status: Acute Code(s): F42.9 - Obsessive-compulsive disorder, unspecified (4) Suicidal ideation: Status: Acute Code(s): R45.851 - Suicidal ideations (5) Bulimia: Status: Acute Code(s): F50.2 - Bulimia nervosa Plan HPI: Patient is a 19 years old female to male Tongan speaking person goes by he him pronouns with hx of OCD, PTSD, BPD, Bulimia who self presented to [facility] [place] with his therapist-Maki secondary to texting her that he wanted to kill himself I'm on my way to commit suicide. 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 Precipitants: Patient reports that he had team meeting today with his [facility] therapist, Maki and [facility] worker. Patient reportedly became upset secondary to fighting that he will be transitioning to adult [facility] at this time. Also increase in depression secondary to be homeless since December and not currently prescribed psych medications. Recently cutting as well secondary to emotional pain. Reports taking extra laxative and eating only 1 snack per day in an attempt to lose weight. However also agrees that this and the cut are self-harm behaviors. Not able to assess regarding SIB or recent cuts. Is not interested in medication at this time. Formulation/clinical reasoning: SI with multiple plans, SIB via cut, cut down food- Eating D/O, irritable,guarded, not on meds, increased in anxiety and irritable mood, guarded, increasing stress due to transition into adult [facility] services, currently is homeless, overuse/abuse to laxative and OTC Benadryl, trouble sleeping and poor appetite.. Hx of OCD, PTSD, BPD, Bulimia. Given the above information. Patient would benefit in restrictive environment his own safety, possible medication management, and refer patient back to community for psychiatric services as aftercare Hospital course: 03/30/25: PRN per protocol. Not current on meds. Not interested in starting neither. Monitor for meal intake. hx of Eating d/o- Bulimia. 04/01 Geodon 20 mg prn Nutritional consult 04/02 Continue to attempt treatment alliance 04/03 Discussed medications and patient says the only thing they want is medication for OCD but still deciding what to do about it and does not want to start a medication at this time; very concerned about weight gain. Also discussed wanting to get back on a Depo Provera shot and needs help getting a PCP. Patient then came up and asked health underwriter for MiraLax b.i.d. which they say they take it home -nursing later came up to health underwriter and explained that regarding patient's eating disorder, since coming to the unit has not been eating much of anything at all, which would be the reason for absence of bowel movement rather than constipation; question MiraLax b.i.d. scheduled given that patient has a history of attempting to purge. Patient got 1 dose but health underwriter decided to hold MiraLax for now for this reason 04/04 little hypomanic? or ADD? pt remains to anxious to choose a medication 04/05 Patient agreed through much ambivalence to start Intuniv venlafaxine; patient wanted to start both of the same time understanding that it might be hard to differentiate if side effects, but feeling ready to embark. -start Intuniv 1 mg daily for executive function and anxiety -start venlafaxine ER 37.5 mg to address OCD 04/06: Continue tx. Await [facility]. Plan CV q15 -start Intuniv 1 mg daily for executive function and anxiety -start venlafaxine ER 37.5 mg to address OCD. Work with treatment team to do collateral Potasium on 03/29 2.9. Recheck on 03/30 3.4. Hcg Negative. U/A unremarkable. Utox +THC, BAL negative. Reason for continued inpatient stay Substantial Risk for: rapid decompensation and med/psych decompensation Time Spent With Patient Time: Total time managing care of this patient today ____ minutes.
[2025-04-06 20:00] VITALS: BP 120/59; PULSE 80; RESP 18; TEMP 36.4; O2SAT 98
[2025-04-07 08:00] VITALS: BP 108/58; PULSE 92; TEMP 36.4; O2SAT 100
[2025-04-07] MEDS: Venlafaxine HCl ER 37.5 MG CAP.ER.24H PO (08:34)
[2025-04-07] MEDS: guanFACINE HCl ER 1 MG TAB.ER.24H PO (08:34)
--- NOTE | 2025-04-07 10:05 | HO.PSYCHPN ---
Subjective Subjective Date of Service: 04/07/25 Reason For Visit: Depression cannabis sedative abuse borderline pers Subjective Notes: Conditional Voluntary Healthcare Proxy: No Guardianship: No Medical Problems Affecting Mental Status: No Interim History: Sleeping today when approached to meet. Not disrupted. Team report more energy this a.m. and a decrease this afternoon. No groups today. Continues to await acceptance to [facility] for treatment of Anorexia. Team reports slept eight hours last evening. Medication Compliance: Yes Side effects from medications: No Attending Groups: No Review of Systems Medical Review of Systems: unchanged Review of Systems Review of Systems restrictive anorexia Mental Status Exam Mental Status Exam Narrative: pt asleep today when attempted to be seen. Diagnostics Vital Signs (24Hr): Vital Signs - 24 hr 04/06/25 20:00 Temperature 97.6 F Pulse Rate 80 Respiratory Rate 18 Blood Pressure 120/59 L Pulse Oximetry 98 Oxygen Delivery Method Room Air BMI result Body Mass Index 28.3 Labs 03/29/25 16:22 03/30/25 03:21 Medications Medications Current Medications Acetaminophen (Acetaminophen 325 Mg Tablet) 650 mg PO Q6H PRN PRN Reason: Headache/Pain, Scale 1-10 Al Hydroxide/Mg Hydroxide (Magnesium Hydrox/Alum Hydrox 30 Ml Oral.Susp) 30 ml PO Q6H PRN PRN Reason: Heartburn/Nausea Guanfacine HCl (Guanfacine Hcl Er 1 Mg Tab.Er.24h) 1 mg PO DAILY [facility] Last Admin: 04/07/25 08:34 Dose: 1 mg Hydroxyzine HCl (Hydroxyzine Hcl 25 Mg Tablet) 25 mg PO Q6H PRN PRN Reason: mild anxiety Nicotine Polacrilex (Nicotine Polacrilex 2 Mg Gum) 4 mg BUCCAL Q2H PRN PRN Reason: Nicotine Cravings Last Admin: 04/07/25 08:34 Dose: 4 mg Olanzapine (Olanzapine 5 Mg Tablet) 5 mg PO Q4H PRN PRN Reason: agitation Polyethylene Glycol (Polyethylene Glycol 3350 17 Gm Powd.Pack) 17 gm PO BID [facility] Last Admin: 04/07/25 08:34 Dose: 17 gm Trazodone HCl (Trazodone Hcl 50 Mg Tablet) 50 mg PO BEDTIME MRX1 PRN PRN Reason: Insomnia Venlafaxine HCl (Venlafaxine Hcl Er 37.5 Mg Cap.Er.24h) 37.5 mg PO DAILY [facility] Last Admin: 04/07/25 08:34 Dose: 37.5 mg Ziprasidone (Ziprasidone 20 Mg Capsule) 20 mg PO DAILY PRN PRN Reason: agitation, dissociation, ptsd grounding Allergies Allergies Allergy/AdvReac Type Severity Reaction Status Date / Time No Known Allergies Allergy Verified 03/29/25 15:51 Assessment & Plan Assessment & Plan (1) Borderline personality disorder: Status: Acute Code(s): F60.3 - Borderline personality disorder (2) PTSD (post-traumatic stress disorder): Status: Acute Code(s): F43.10 - Post-traumatic stress disorder, unspecified (3) OCD (obsessive compulsive disorder): Status: Acute Code(s): F42.9 - Obsessive-compulsive disorder, unspecified (4) Suicidal ideation: Status: Acute Code(s): R45.851 - Suicidal ideations (5) Bulimia: Status: Acute Code(s): F50.2 - Bulimia nervosa Plan HPI: Patient is a 19 years old female to male Chinese speaking person goes by he him pronouns with hx of OCD, PTSD, BPD, Bulimia who [place] [facility] [place]Maki secondary to texting her that he wanted to kill himself I'm on my way to commit suicide. 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 Precipitants: Patient reports that he had team meeting today with his [facility] therapist, Maki and [facility] worker. Patient reportedly became upset secondary to fighting that he will be transitioning to adult [facility] at this time. Also increase in depression secondary to be homeless since December and not currently prescribed psych medications. Recently cutting as well secondary to emotional pain. Reports taking extra laxative and eating only 1 snack per day in an attempt to lose weight. However also agrees that this and the cut are self-harm behaviors. Not able to assess regarding SIB or recent cuts. Is not interested in medication at this time. Formulation/clinical reasoning: SI with multiple plans, SIB via cut, cut down food- Eating D/O, irritable,guarded, not on meds, increased in anxiety and irritable mood, guarded, increasing stress due to transition into adult [facility] services, currently is homeless, overuse/abuse to laxative and OTC Benadryl, trouble sleeping and poor appetite.. Hx of OCD, PTSD, BPD, Bulimia. Given the above information. Patient would benefit in restrictive environment his own safety, possible medication management, and refer patient back to community for psychiatric services as aftercare Hospital course: 03/30/25: PRN per protocol. Not current on meds. Not interested in starting neither. Monitor for meal intake. hx of Eating d/o- Bulimia. 04/01 Geodon 20 mg prn Nutritional consult 04/02 Continue to attempt treatment alliance 04/03 Discussed medications and patient says the only thing they want is medication for OCD but still deciding what to do about it and does not want to start a medication at this time; very concerned about weight gain. Also discussed wanting to get back on a Depo Provera shot and needs help getting a PCP. Patient then came up and asked commercial real estate underwriter for MiraLax b.i.d. which they say they take it home -nursing later came up to commercial real estate underwriter and explained that regarding patient's eating disorder, since coming to the unit has not been eating much of anything at all, which would be the reason for absence of bowel movement rather than constipation; question MiraLax b.i.d. scheduled given that patient has a history of attempting to purge. Patient got 1 dose but commercial real estate underwriter decided to hold MiraLax for now for this reason 04/04 little hypomanic? or ADD? pt remains to anxious to choose a medication 04/05 Patient agreed through much ambivalence to start Intuniv venlafaxine; patient wanted to start both of the same time understanding that it might be hard to differentiate if side effects, but feeling ready to embark. -start Intuniv 1 mg daily for executive function and anxiety -start venlafaxine ER 37.5 mg to address OCD 04/07-continue to monitor Plan CV q15 -start Intuniv 1 mg daily for executive function and anxiety -start venlafaxine ER 37.5 mg to address OCD. Work with treatment team to do collateral Potasium on 03/29 2.9. Recheck on 03/30 3.4. Hcg Negative. U/A unremarkable. Utox +THC, BAL negative. Reason for continued inpatient stay Substantial Risk for: rapid decompensation and med/psych decompensation Time Spent With Patient Time: Total time managing care of this patient today ____ minutes.
[2025-04-07 20:00] VITALS: BP 102/58; PULSE 83; RESP 18; TEMP 36.9; O2SAT 98
[2025-04-08 07:00] VITALS: BMI 27.0
[2025-04-08 08:00] VITALS: BP 97/55; PULSE 87; RESP 18; TEMP 36.3; O2SAT 98
[2025-04-08] MEDS: Venlafaxine HCl ER 37.5 MG CAP.ER.24H PO (08:55)
[2025-04-08] MEDS: guanFACINE HCl ER 1 MG TAB.ER.24H PO (08:55)
--- NOTE | 2025-04-08 10:37 | HO.PSYCHPN ---
Subjective Subjective Date of Service: 04/08/25 Reason For Visit: Depression cannabis sedative abuse borderline pers Subjective Notes: Conditional Voluntary Healthcare Proxy: No Guardianship: No Medical Problems Affecting Mental Status: No Interim History: Pt accepted to [facility]. Labs drawn per [facility]'s request. Pt engaged in milieu, with peers and with team. She is taking medications, attending group, has been participating in her plan of care. She is prepared to go to the next step in her treatment. I know what to expect . I am ready to work on my eating. Medication Compliance: Yes Side effects from medications: No Attending Groups: Yes Review of Systems Acute medical concerns: No Medical Review of Systems: unchanged Review of Systems Review of Systems poor appetite Mental Status Exam Mental Status Exam Patient Appearance: Appropriate Patient Orientation: Person, Place, Time and Situation Level of Consciousness: Awake, Appropriate and Alert Patient Behavior: Talkative Behavior Comments: Some eye contact Mood Description: Depressed and Apprehensive Affect Description: Flat Patient Cognition Impaired: No Ability to Follow Directions: Fair Speech Pattern: Spontaneous Speech Memory Description: Intact Hallucinations: None (denied) Delusions: Not Present Perceptual Disturbances: Depersonalization and Derealization Thought Process: Goal Oriented Thought Content: positive for Circumstantial, positive for Perseveration and positive for Suicidal Ideation (Which is chronic) Judgement: Fair Diagnostics Vital Signs (24Hr): Vital Signs - 24 hr 04/07/25 20:00 04/08/25 08:00 Temperature 98.4 F 97.3 F Pulse Rate 83 87 Respiratory Rate 18 18 Blood Pressure 102/58 L 97/55 L Pulse Oximetry 98 98 Oxygen Delivery Method Room Air Room Air BMI result Body Mass Index 28.3 Labs 04/08/25 12:15 04/08/25 12:16 Medications Medications Current Medications Acetaminophen (Acetaminophen 325 Mg Tablet) 650 mg PO Q6H PRN PRN Reason: Headache/Pain, Scale 1-10 Al Hydroxide/Mg Hydroxide (Magnesium Hydrox/Alum Hydrox 30 Ml Oral.Susp) 30 ml PO Q6H PRN PRN Reason: Heartburn/Nausea Guanfacine HCl (Guanfacine Hcl Er 1 Mg Tab.Er.24h) 1 mg PO DAILY [facility] Last Admin: 04/08/25 08:55 Dose: 1 mg Hydroxyzine HCl (Hydroxyzine Hcl 25 Mg Tablet) 25 mg PO Q6H PRN PRN Reason: mild anxiety Nicotine Polacrilex (Nicotine Polacrilex 2 Mg Gum) 4 mg BUCCAL Q2H PRN PRN Reason: Nicotine Cravings Last Admin: 04/08/25 08:55 Dose: 4 mg Olanzapine (Olanzapine 5 Mg Tablet) 5 mg PO Q4H PRN PRN Reason: agitation Polyethylene Glycol (Polyethylene Glycol 3350 17 Gm Powd.Pack) 17 gm PO BID [facility] Last Admin: 04/08/25 08:55 Dose: 17 gm Trazodone HCl (Trazodone Hcl 50 Mg Tablet) 50 mg PO BEDTIME MRX1 PRN PRN Reason: Insomnia Venlafaxine HCl (Venlafaxine Hcl Er 37.5 Mg Cap.Er.24h) 37.5 mg PO DAILY [facility] Last Admin: 04/08/25 08:55 Dose: 37.5 mg Ziprasidone (Ziprasidone 20 Mg Capsule) 20 mg PO DAILY PRN PRN Reason: agitation, dissociation, ptsd grounding Allergies Allergies Allergy/AdvReac Type Severity Reaction Status Date / Time No Known Allergies Allergy Verified 03/29/25 15:51 Assessment & Plan Assessment & Plan (1) Borderline personality disorder: Status: Acute Code(s): F60.3 - Borderline personality disorder (2) PTSD (post-traumatic stress disorder): Status: Acute Code(s): F43.10 - Post-traumatic stress disorder, unspecified (3) OCD (obsessive compulsive disorder): Status: Acute Code(s): F42.9 - Obsessive-compulsive disorder, unspecified (4) Suicidal ideation: Status: Acute Code(s): R45.851 - Suicidal ideations (5) Bulimia: Status: Deleted Code(s): F50.2 - Bulimia nervosa Plan HPI: Patient is a 19 years old female to male [place] speaking person goes by he him pronouns with hx of OCD, PTSD, BPD, Bulimia who self [place] [facility] [place] therapist-Maki secondary to texting her that he wanted to kill himself I'm on my way to commit suicide. 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 Precipitants: Patient reports that he had team meeting today with his [facility] therapist, Maki and [facility] worker. Patient reportedly became upset secondary to fighting that he will be transitioning to adult [facility] at this time. Also increase in depression secondary to be homeless since December and not currently prescribed psych medications. Recently cutting as well secondary to emotional pain. Reports taking extra laxative and eating only 1 snack per day in an attempt to lose weight. However also agrees that this and the cut are self-harm behaviors. Not able to assess regarding SIB or recent cuts. Is not interested in medication at this time. Formulation/clinical reasoning: SI with multiple plans, SIB via cut, cut down food- Eating D/O, irritable,guarded, not on meds, increased in anxiety and irritable mood, guarded, increasing stress due to transition into adult [facility] services, currently is homeless, overuse/abuse to laxative and OTC Benadryl, trouble sleeping and poor appetite.. Hx of OCD, PTSD, BPD, Bulimia. Given the above information. Patient would benefit in restrictive environment his own safety, possible medication management, and refer patient back to community for psychiatric services as aftercare Hospital course: 03/30/25: PRN per protocol. Not current on meds. Not interested in starting neither. Monitor for meal intake. hx of Eating d/o- Bulimia. 04/01 Geodon 20 mg prn Nutritional consult 04/02 Continue to attempt treatment alliance 04/03 Discussed medications and patient says the only thing they want is medication for OCD but still deciding what to do about it and does not want to start a medication at this time; very concerned about weight gain. Also discussed wanting to get back on a Depo Provera shot and needs help getting a PCP. Patient then came up and asked contract writer for MiraLax b.i.d. which they say they take it home -nursing later came up to contract writer and explained that regarding patient's eating disorder, since coming to the unit has not been eating much of anything at all, which would be the reason for absence of bowel movement rather than constipation; question MiraLax b.i.d. scheduled given that patient has a history of attempting to purge. Patient got 1 dose but contract writer decided to hold MiraLax for now for this reason 04/04 little hypomanic? or ADD? pt remains to anxious to choose a medication 04/05 Patient agreed through much ambivalence to start Intuniv venlafaxine; patient wanted to start both of the same time understanding that it might be hard to differentiate if side effects, but feeling ready to embark. -start Intuniv 1 mg daily for executive function and anxiety -start venlafaxine ER 37.5 mg to address OCD 04/07-continue to monitor 04/08- preparing for transfer to [facility]. Plan CV q15 -start Intuniv 1 mg daily for executive function and anxiety -start venlafaxine ER 37.5 mg to address OCD. Work with treatment team to do collateral Potasium on 03/29 2.9. Recheck on 03/30 3.4. Hcg Negative. U/A unremarkable. Utox +THC, BAL negative. Reason for continued inpatient stay Substantial Risk for: rapid decompensation and med/psych decompensation Time Spent With Patient Time: Total time managing care of this patient today ____ minutes.
[2025-04-08 12:22] LABS: MANUAL DIFF FLAG NO
[2025-04-08 12:24] LABS: Hematocrit 42.9 % (37.0-47.0); Hemoglobin 14.7 g/dl (12.0-16.0); Imm Gran Abs Auto 0.01 X10*3/uL (0.00-0.03); Imm Gran Pct Auto 0.2 % (0.0-0.4); Lymphocytes Absolute Auto 1.8 X10*3/uL (1.2-4.9); Mean Corpuscular HGB Conc 34.3 g/dl (31.0-35.0); Mean Corpuscular Hemoglobin 29.9 pg (27.0-33.0); Mean Corpuscular Volume 87.2 fL (80.0-98.0); NRBC Abs Auto 0.000 X10*3/uL (0.0-0.012); NRBC Pct Auto 0.0 /100WBC (0.0-0.2); Platelet Count 229 X10*3/uL (160-400); Red Blood Count 4.92 X10*6/uL (4.20-5.50); White Blood Count 5.2 X10*3/uL (4.8-10.8)
[2025-04-08 12:49] LABS: Alanine Aminotransferase 18 U/L (0-31); Albumin Level 5.0 g/dL (3.5-5.0); Alkaline Phosphatase 67 U/L (39-117); Anion Gap 19 (12-20); Aspartate Amino Transferase 32 U/L (5-31); Blood Urea Nitrogen 8 mg/dL (9-16); Calcium 9.9 mg/dL (8.4-10.2); Carbon Dioxide 20 mmol/L (22-29); Chloride 105 mmol/L (96-108); Cholesterol 198 mg/dL (<200); Creatinine Clr Calc Pharmacy 135.2; Estimated Glomerular Filt Rate > 60; HDL Cholesterol 41 mg/dL (>40); Potassium 4.2 mmol/L (3.3-5.1); Sodium 140 mmol/L (135-145); Total Protein 7.8 g/dL (6.5-8.0); Triglycerides 82 mg/dL (<150)
[2025-04-08 13:03] LABS: Thyroid Stimulating Hormone 0.64 uIU/mL (0.32-4.0)
[2025-04-08 13:14] LABS: Folate 12.0 ng/mL (> or = 4.0); Vitamin B12 1445 pg/mL (200-900)
[2025-04-08 20:00] VITALS: BP 119/71; PULSE 95; RESP 15; TEMP 36.9; O2SAT 98
[2025-04-09 08:00] VITALS: BP 113/65; PULSE 72; RESP 16; TEMP 36.3; O2SAT 99
[2025-04-09] MEDS: guanFACINE HCl ER 1 MG TAB.ER.24H PO (08:40)
[2025-04-09] MEDS: Venlafaxine HCl ER 37.5 MG CAP.ER.24H PO (08:40)
--- NOTE | 2025-04-09 10:32 | PM.PSYDC ---
DS: Providers Provider Date of Service: 04/09/25 Date of admission: 03/30/25 12:17 Date of discharge: 04/09/25 Primary care physician: Unknown Physician Admitting clinician: Princess Knapp Attending physician on admission: Emilio Bunch Attending physician on discharge: Emilio Bunch Discharging clinician: Kaye Retana DS: Diagnosis Discharge Diagnosis (1) Borderline personality disorder: Status: Acute (2) PTSD (post-traumatic stress disorder): Status: Acute (3) OCD (obsessive compulsive disorder): Status: Acute (4) Suicidal ideation: Status: Acute (5) Anorexia: Status: Acute DS: Medications Discharge Medications Home Medications: Previous Rx's ?Medication ?Instructions ?Recorded guanfacine 1 mg tablet,extended 1 mg PO DAILY #0 tabs 04/09/25 release 24 hr nicotine (polacrilex) 2 mg gum 4 mg buccal Q2H PRN Nicotine 04/09/25 Cravings #0 ea polyethylene glycol 3350 17 gram 17 g PO BID #0 ea 04/09/25 oral powder packet venlafaxine 37.5 mg 37.5 mg PO DAILY #0 caps 04/09/25 capsule,extended release 24 hr Mental Status Exam Mental Status Exam Patient Appearance: Appropriate Patient Orientation: Person, Place, Time and Situation Level of Consciousness: Awake, Appropriate and Alert Patient Behavior: Talkative Behavior Comments: Some eye contact Mood Description: Depressed and Apprehensive Affect Description: Flat Patient Cognition Impaired: No Ability to Follow Directions: Fair Speech Pattern: Spontaneous Speech Memory Description: Intact Hallucinations: None (denied) Delusions: Not Present Perceptual Disturbances: Depersonalization and Derealization Thought Process: Goal Oriented Thought Content: positive for Circumstantial, positive for Perseveration and positive for Suicidal Ideation (Which is chronic) Judgement: Fair Data Data Completed and Pending Completed studies during hospitalization [Text1]: 04/08/25 04/08/25 12:15 12:16 WBC 5.2 RBC 4.92 Hgb 14.7 Hct 42.9 MCV 87.2 MCH 29.9 MCHC 34.3 RDW 12.7 Plt Count 229 MPV 11.7 Immature Gran % (Auto) 0.2 Neut % (Auto) 58.6 Lymph % (Auto) 34.5 Holmes % (Auto) 4.8 Eos % (Auto) 0.6 Baso % (Auto) 1.3 Lymph # (Auto) 1.8 Holmes # (Auto) 0.3 Eos # (Auto) 0.0 Baso # (Auto) 0.1 Abs Immat Gran (auto) 0.01 Absolute Neuts (auto) 3.1 Absolute Nucleated RBC 0.000 Nucleated RBC % (auto) 0.0 Sodium 140 Potassium 4.2 D Chloride 105 Carbon Dioxide 20 L Anion Gap 19 BUN 8 L Creatinine 0.72 Estim Creat Clear Calc 135.2 Estimated GFR > 60 Random Glucose 60 Calcium 9.9 D Total Bilirubin 1.0 AST 32 H ALT 18 Alkaline Phosphatase 67 Total Protein 7.8 Albumin 5.0 Triglycerides 82 Cholesterol 198 LDL Cholesterol, Calc 141 H HDL Cholesterol 41 Vitamin B12 1445 H Folate 12.0 TSH 0.64 DS: Summary Hospital Course Hospital Course: Admission to adult psychiatry for exacerbation of PTSD, OCD, Restrictive Anorexia, Borderline Personality Disorder with SI. Medications were evaluated and initiated. Pt was able to establish safety in the milieu after an initial episode of SIBS(cutting). They were able to work with their out pt team, [facility] and [facility] team to self refer to [place] for ongoing treatment. They utilized milieu to strengthen coping skills and transferred to [place] on 04/09/25. Status at Discharge Functional status at discharge: independent ambulation Overall status at discharge: patient is progressing back to baseline Time Spent with Patient Time attestation: Total time managing care of this patient today ____ minutes. Time spent: Less than 30 minutes Discharge Plan Discharge Anticipated Discharge Date/Time: 04/09/25 11:00 Patient Disposition: Xfer Acute Care Hospital Discharge Diagnosis: PTSD OCD Anorexia Borderline Personality Disorder [facility] [Other] - 1 Week Referral Note: *Your outpatient providers have been updated as to your discharge plan. Please call [facility] to schedule both therapy and medication management before you leave residential treatment. [facility] [Other] - 1 Week Referral Note: *Your human services case manager, Rosa Grijalva, has been updated as to your discharge plan. Please call her frequently for continued support and updates regarding eligible services! [facility] [Other] - 04/09/25 12:00 pm Referral Note: You have been accepted into [facility] (2nd Floor) for inpatient eating disorder treatment. Good luck! [facility] [Other] - 1 Week Referral Note: *[facility] was updated as to your discharge plan Physician,Stephania J [Primary Care Provider, Medical] - 1 Week Discharge Medications: New venlafaxine 37.5 mg Capsule,Extended Release 24hr 37.5 mg PO DAILY Qty: 0 0RF polyethylene glycol 3350 17 gram Powder In Packet 17 g PO BID Qty: 0 0RF nicotine (polacrilex) 2 mg Gum 4 mg buccal Q2H PRN (Reason: Nicotine Cravings) Qty: 0 0RF guanfacine 1 mg Tablet Extended Release 24 Hr 1 mg PO DAILY Qty: 0 0RF Discharge Orders: Discharge Order (Routine); Ordered 04/09/25 Ordered By: Kaye Retana Diet: Advance to usual diet Activity on Discharge: As tolerated Stand Alone Forms: Patient Portal Discharge page, Community Support Print Language: Faroese Care Plan Goals: Mood/Behavioral Stabilization Health Concerns: Anorexia PTSD OCD Plan of Treatment: Voluntary admit/transfer to [facility] which [facility] has coordinated Assessment: Transfer to [facility] Discharge Date/Time: 04/09/25 10:50
== END 2025-04-09 10:50 | disposition short-term general hospital (02) | DRG 752 ==
LOC: HO.ED 03-30 12:32 → HO.PM5 03-30 13:13
PROVIDERS: Physician Assistant Medical; Admitting Provider Clinical Nurse Specialist Psychiatric/Mental Health, Adult; Emergency Provider Emergency Medicine; Visit Provider Clinical Nurse Specialist Psychiatric/Mental Health, Adult
DX: F60.3 Borderline personality disorder (principal); F50.20 Bulimia nervosa, unspecified; R45.851 Suicidal ideations; F42.9 Obsessive-compulsive disorder, unspecified; F64.0 Transsexualism; Z78.1 Physical restraint status; Z20.822 Contact with and (suspected) exposure to COVID-19; Z68.53 Body mass index [BMI] pediatric, 85th percentile to less than 95th percentile for age; Z91.52 Personal history of nonsuicidal self-harm; Z79.899 Other long term (current) drug therapy
CPT/HCPCS: 36415; 80048; 80053; 80061; 80143; 80179; 80307; 81001; 81025; 82607; 82746; 83036; 83735; 84100; 84439; 84443; 85025; 87635; 93005; 99285; J1200; J1630; J3360; S9485

== ENCOUNTER → 2025-03-29 17:10 | Outpatient (BNV) | payer OTHER, SELFPAY | PROVIDERS: Emergency Provider Emergency Medicine; Visit Provider Internal Medicine Cardiovascular Disease | DX: E87.6 Hypokalemia (principal) | CPT/HCPCS: 93010 ==

== ENCOUNTER → 2025-03-30 12:17 | Outpatient (BNV) | payer OTHER, SELFPAY | PROVIDERS: Admitting Provider Clinical Nurse Specialist Psychiatric/Mental Health, Adult; Emergency Provider Emergency Medicine; Visit Provider Nurse Practitioner Psychiatric/Mental Health | DX: F60.3 Borderline personality disorder (principal); F43.11 Post-traumatic stress disorder, acute; F42.9 Obsessive-compulsive disorder, unspecified; R45.851 Suicidal ideations; F50.2 Bulimia nervosa | CPT/HCPCS: 99231; 99232; 99499 ==

== ENCOUNTER → 2025-03-30 12:17 | Outpatient (BNV) | payer OTHER, SELFPAY | PROVIDERS: Admitting Provider Clinical Nurse Specialist Psychiatric/Mental Health, Adult; Emergency Provider Emergency Medicine; Visit Provider Nurse Practitioner Family | DX: R45.851 Suicidal ideations (principal) | CPT/HCPCS: 99221 ==